=== PATIENT | male | born 1970 | race Caucasian/White ===

== ENCOUNTER 2017-09-19 20:02 | Emergency (ER) | payer OTHER ==
[2017-09-19] MEDS ORDERED: IPRATROPIUM-ALBUTEROL 3 ML NEB INHALATION STA (21:20)
[2017-09-19] MEDS ORDERED: predniSONE 20 MG TAB PO STA (21:20)
--- NOTE | 2017-09-19 21:25 | ED ---
General Adult HPI - General Chief complaint: Upper Respiratory Infection Stated complaint: URSULA Time Seen by Provider: 09/19/17 21:12 Source: patient Mode of arrival: ambulatory Limitations: no limitations - History of Present Illness Initial comments: This patient is a 46-year-old man who presents to be evaluated for a worsening of his COPD. He states that for about 2 days now he has noted worsening of dyspnea on exertion. He states that he also feels like he is wheezing more than usual, and he is coughing a little more than usual, though there is no sputum production. He states that this is typical of a flareup of his COPD. He states that he has been using albuterol at home which only seems to help a little bit. The patient is denying other symptoms, including no fever or chills , sputum production, dyspnea at rest, orthopnea, chest pain, palpitations or syncope, leg pain or swelling, change in urination or bowel movements. The patient states that the last time his breathing flareup like this he received ipratropium bromide which seemed to help. Onset/Timin -: days(s) Consistency: constant Improves with: medication Worsens with: movement Associated Symptoms: cough, shortness of breath - Related Data Home Medications Medication Instructions Recorded Confirmed Albuterol Nebulized [Ventolin 2.5 mg INHALATION RT-Q6H PRN 09/19/17 09/19/17 Nebulized] Budesonide/Formoterol Fumarate 2 puff INHALATION RT-BID 09/19/17 09/19/17 [Symbicort 160-4.5 Mcg Inhaler] Multivitamins, Thera [Multivitamin 1 tab PO DAILY 09/19/17 09/19/17 (formulary)] Prilosec (Unknown Dose) 1 tab PO DAILY 09/19/17 09/19/17 Zoloft (Unknown Dose) 1 tab PO HS 09/19/17 09/19/17 Previous Rx's Medication Instructions Recorded Albuterol Inhaler [Ventolin Hfa 1 - 2 puff INHALATION Q6HR PRN #1 09/19/17 Inhaler] inhaler Ipratropium [place] [Atrovent Hfa] 2 puff INHALATION QID #1 inhaler 09/19/17 predniSONE 60 mg PO DAILY #30 tab 09/19/17 Allergies Allergy/AdvReac Type Severity Reaction Status Date / Time No Known Allergies Allergy Verified 09/19/17 20:56 Review of Systems ROS Statement: Those systems with pertinent positive or pertinent negative responses have been documented in the HPI. ROS Other: All systems not noted in ROS Statement are negative. Constitutional: Denies: fever, chills, weakness ENT: Denies: throat pain Respiratory: Reports: cough, wheezes. Denies: dyspnea, hemoptysis, stridor Cardiovascular: Reports: dyspnea on exertion. Denies: chest pain, palpitations , orthopnea, edema, syncope Gastrointestinal: Denies: abdominal pain, vomiting, diarrhea, melena, hematochezia Genitourinary: Denies: dysuria Musculoskeletal: Denies: back pain Neurological: Denies: headache, weakness, numbness Past Medical History Past Medical History: COPD History of Any Multi-Drug Resistant Organisms: None Reported Past Surgical History: No Surgical Hx Reported Past Psychological History: Anxiety, Depression Smoking Status: Current every day smoker Past Alcohol Use History: Occasional Past Drug Use History: None Reported General Exam Limitations: no limitations General appearance: alert, in no apparent distress Head exam: Present: atraumatic, normocephalic, normal inspection Eye exam: Present: normal appearance ENT exam: Present: normal oropharynx Respiratory exam: Present: wheezes. Absent: respiratory distress, rales, rhonchi, stridor, chest wall tenderness, accessory muscle use, decreased breath sounds, prolonged expiratory Cardiovascular Exam: Present: regular rate, normal rhythm, normal heart sounds. Absent: systolic murmur, diastolic murmur, rubs, gallop GI/Abdominal exam: Present: soft. Absent: distended, tenderness, guarding, rebound, mass Extremities exam: Present: normal inspection, normal capillary refill. Absent: pedal edema, calf tenderness Neurological exam: Present: alert Skin exam: Present: warm, dry, intact, normal color. Absent: rash Course Vital Signs 09/19/17 09/19/17 09/19/17 20:19 21:09 21:51 Temperature 97.7 F Pulse Rate 98 82 Respiratory 18 20 Rate Blood Pressure 127/79 O2 Sat by Pulse 98 Oximetry 09/19/17 22:04 Temperature Pulse Rate 84 Respiratory Rate Blood Pressure O2 Sat by Pulse Oximetry Disposition Clinical Impression: Asthmatic bronchitis Disposition: HOME SELF-CARE Condition: Fair Instructions: Bronchospasm (ED) Prescriptions: Albuterol Inhaler [Ventolin Hfa Inhaler] 1 - 2 puff INHALATION Q6HR PRN #1 inhaler PRN Reason: Wheezing Ipratropium [place] [Atrovent Hfa] 2 puff INHALATION QID #1 inhaler predniSONE 60 mg PO DAILY #30 tab Referrals: Val Concepcion MD [Primary Care Provider] - 1-2 days
--- NOTE | 2017-09-19 22:45 | XR ---
EXAMINATION TYPE: XR chest 2V DATE OF EXAM: 09/19/2017 COMPARISON: NONE HISTORY: Cough and short of breath TECHNIQUE: Frontal and lateral views of the chest are obtained. FINDINGS: Heart and mediastinum are normal. Lungs are clear. Diaphragm is normal. Bony thorax appear s normal. IMPRESSION: Normal chest
[2017-09-19 23:20] VITALS: BP 135/83; PULSE 86; RESP 17; TEMP 98.7
== END 2017-09-19 23:20 | disposition home or self-care (01) ==
LOC: EC 20:02
DX: J44.9 Chronic obstructive pulmonary disease, unspecified (principal); F32.9 Major depressive disorder, single episode, unspecified; F41.9 Anxiety disorder, unspecified; F17.200 Nicotine dependence, unspecified, uncomplicated; Z79.51 Long term (current) use of inhaled steroids; Z79.899 Other long term (current) drug therapy
CPT/HCPCS: 94640; 71046; 99283; J7512

== ENCOUNTER 2017-11-19 07:33 | Emergency (ER) | payer OTHER ==
[2017-11-19 07:40] VITALS: RESP 17
--- NOTE | 2017-11-19 08:00 | ED ---
Upper Extremity HPI - General Chief Complaint: Extremity Injury, Upper Stated Complaint: IHS-Hand Swelling Time Seen by Provider: 11/19/17 07:49 Source: patient Mode of arrival: ambulatory Limitations: no limitations - History of Present Illness Initial Comments: Patient complains of pain and swelling of the right upper extremity. 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 He has pain in the right elbow, and also some pain and swelling in the right hand. He has no loss of function. He has no pain in the forearm. He denies any direct injuries. He has some scratches on the dorsum of the right hand. He has no numbness or tingling in the fingertips. 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 He has taken no medication for this. He states the pain is worse in the elbow when he extends his arm. He does not recall any direct trauma to the extremity. He denies any fever or chills. He has no lightheadedness. - Related Data Home Medications Medication Instructions Recorded Confirmed Albuterol Nebulized [Ventolin 2.5 mg INHALATION RT-Q6H PRN 09/19/17 09/19/17 Nebulized] Budesonide/Formoterol Fumarate 2 puff INHALATION RT-BID 09/19/17 09/19/17 [Symbicort 160-4.5 Mcg Inhaler] Multivitamins, Thera [Multivitamin 1 tab PO DAILY 09/19/17 09/19/17 (formulary)] Prilosec (Unknown Dose) 1 tab PO DAILY 09/19/17 09/19/17 Zoloft (Unknown Dose) 1 tab PO HS 09/19/17 09/19/17 Previous Rx's Medication Instructions Recorded Albuterol Inhaler [Ventolin Hfa 1 - 2 puff INHALATION Q6HR PRN #1 09/19/17 Inhaler] inhaler Ipratropium [place] [Atrovent Hfa] 2 puff INHALATION QID #1 inhaler 09/19/17 predniSONE 60 mg PO DAILY #30 tab 09/19/17 Aspirin 325 mg PO DAILY #30 tab 11/19/17 Cephalexin [Keflex] 500 mg PO Q12HR #40 cap 11/19/17 Sulfamethoxazole/Trimethoprim 2 each PO BID #40 tablet 11/19/17 [Bactrim DS 800-160 mg] Allergies Allergy/AdvReac Type Severity Reaction Status Date / Time No Known Allergies Allergy Verified 11/19/17 07:34 Review of Systems ROS Statement: Those systems with pertinent positive or pertinent negative responses have been documented in the HPI. ROS Other: All systems not noted in ROS Statement are negative. Past Medical History Past Medical History: COPD History of Any Multi-Drug Resistant Organisms: None Reported Past Surgical History: No Surgical Hx Reported Past Psychological History: Anxiety, Depression Smoking Status: Current every day smoker Past Alcohol Use History: Occasional Past Drug Use History: None Reported General Exam Limitations: no limitations General appearance: alert Head exam: Present: atraumatic, normocephalic, normal inspection Eye exam: Present: normal appearance, PERRL, EOMI. Absent: scleral icterus, conjunctival injection, periorbital swelling Neck exam: Present: normal inspection. Absent: tenderness, meningismus, lymphadenopathy Respiratory exam: Absent: respiratory distress Cardiovascular Exam: Present: other (Capillary refill less than 2 seconds) Extremities exam: Present: full ROM, normal capillary refill Back exam: Present: normal inspection Neurological exam: Present: alert, oriented X3, CN II-XII intact Psychiatric exam: Present: normal affect, normal mood Skin exam: Present: other (Abrasion on the back of the right hand with some slight erythema) Course Vital Signs 11/19/17 07:34 Temperature 97.5 F L Pulse Rate 83 Respiratory 17 Rate Blood Pressure 143/84 O2 Sat by Pulse 97 Oximetry Medical Decision Making - Medical Decision Making Patient's imaging is obtained, all interpreted by radiology showing no evidence of fracture, no evidence of DVT. Ultrasound was concerning for a superficial thrombophlebitis, so we'll start the patient on an aspirin. I will give him a dose of antibiotics as I'm concerned he has a mild cellulitis of the hand. There is no evidence of abscess. This involves less than 50% of his right upper extremity. There is no indication for IV antibiotics or admission at this time. I advised the patient to follow-up with his primary care doctor within 2 days. I instructed him to return to the emerge department immediately if symptoms worsen, or if he develops any other proms or complaints. He did verbalize understanding of these instructions. Disposition Clinical Impression: Cellulitis, Superficial thrombophlebitis of arm Disposition: HOME SELF-CARE Condition: Good Instructions: Cellulitis (ED), Superficial Thrombophlebitis (ED) Prescriptions: Aspirin 325 mg PO DAILY #30 tab Cephalexin [Keflex] 500 mg PO Q12HR #40 cap Sulfamethoxazole/Trimethoprim [Bactrim DS 800-160 mg] 2 each PO BID #40 tablet Is patient prescribed a controlled substance at discharge?: No Referrals: Val Concepcion MD [Primary Care Provider] - 1-2 days
--- NOTE | 2017-11-19 08:29 | XR ---
Right hand HISTORY: Trauma and pain 3 views of the right hand Arthropathy changes are noted especially at the first metacarpophalangeal joint with associated soft tissue swelling. Alignment is maintained. Bone mineralization is normal. There is soft tissue swellin g present. IMPRESSION: No fracture or dislocation.
--- NOTE | 2017-11-19 08:30 | XR ---
Right forearm HISTORY: Trauma and pain 2 views of the right forearm Correlation right elbow and hand same date Bone mineralization, joint spaces and alignment are maintained. IMPRESSION: No fracture or dislocation.
--- NOTE | 2017-11-19 08:31 | XR ---
Right elbow HISTORY: Trauma and pain 3 views of the right elbow Question joint effusion. Alignment, joint spaces and bone mineralization are maintained. IMPRESSION: No fracture or dislocation. Possible elbow joint effusion. Follow-up as indicated.
--- NOTE | 2017-11-19 10:07 | US ---
EXAMINATION TYPE: US venous doppler duplex UE RT DATE OF EXAM: 11/19/2017 COMPARISON: NONE CLINICAL HISTORY: 46-year-old male with right hand swelling today with ecchymosis to posterior hand a t thumb level; using jackhammer x 3 days; nine days prior had blood drawn/plasma donation via right a rm. SIDE PERFORMED: Right Findings: Right Arm: Negative for DVT. The subclavian, internal jugular, axillary, brachial, and paired radial and ulnar veins were sampled. The cephalic veins were also sampled. 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 Color flow patency is noted flowing around wall changes in Basilic Vein. Edema channels are noted right posterior hand at swelling. IMPRESSION: 1. No sonographic evidence for DVT within the right upper extremity. 2. However, findings suggest nonocclusive SVT involving the basilic vein as above. 3. Prominent subcutaneous soft tissue edema in the hand at the site of bruising and swelling.
[2017-11-19] MEDS ORDERED: CEPHALEXIN 500 MG CAP PO STA (10:31)
[2017-11-19] MEDS ORDERED: SULFAMETHOX-TMP 800-160MG 1 EACH TAB PO STA (10:31)
[2017-11-19 10:49] VITALS: BP 138/82; PULSE 82; TEMP 97.7
== END 2017-11-19 10:48 | disposition home or self-care (01) ==
LOC: EC 07:33
DX: L03.113 Cellulitis of right upper limb (principal); I80.8 Phlebitis and thrombophlebitis of other sites; J44.9 Chronic obstructive pulmonary disease, unspecified; F32.9 Major depressive disorder, single episode, unspecified; F41.9 Anxiety disorder, unspecified; F17.200 Nicotine dependence, unspecified, uncomplicated; Z79.899 Other long term (current) drug therapy; X58.XXXA Exposure to other specified factors, initial encounter; Y92.69 Other specified industrial and construction area as the place of occurrence of the external cause; Y99.0 Civilian activity done for income or pay
CPT/HCPCS: 99284

== ENCOUNTER 2017-12-08 12:26 | Observation (INO) | payer OTHER ==
[2017-12-08] MEDS ORDERED: diphenhydrAMINE 50 MG/ML 1 ML VIAL IVP STA (12:53)
[2017-12-08] MEDS ORDERED: methylPREDNISolone SOD SUCCI 125 MG/2 ML VIAL IV STA (12:53)
--- NOTE | 2017-12-08 12:59 | ED ---
General Adult HPI - General Chief complaint: Recheck/Abnormal Lab/Rx Stated complaint: bilat hand/foot swelling, back pain Time Seen by Provider: 12/08/17 12:38 Source: patient, RN notes reviewed Mode of arrival: wheelchair Limitations: no limitations - History of Present Illness Initial comments: 46-year-old male presents emergency Department with chief complaint of bilateral hand, foot swelling. Patient states his feet are much worse on his hands. Patient states that started Friday and has progressed. Patient states his feet are very painful and she. Patient states that there is blotchy red and purple discoloration. He states he has a history of COPD and has no other major issues. Patient states that he was seen in emergency department several weeks ago for cellulitis, superficial from phlebitis to his hand. Patient states he now has sores that are purplish on his hand there also salad painful. Denies any fever, chills. He has no history of immune disorders. Patient states she is not taking medications regular basis. Denies any new chemical or drug exposure. - Related Data Home Medications Medication Instructions Recorded Confirmed Albuterol Nebulized [Ventolin 2.5 mg INHALATION RT-Q6H PRN 09/19/17 12/08/17 Nebulized] Budesonide/Formoterol Fumarate 2 puff INHALATION RT-BID 09/19/17 12/08/17 [Symbicort 160-4.5 Mcg Inhaler] Multivitamins, Thera [Multivitamin 1 tab PO DAILY 09/19/17 12/08/17 (formulary)] Prilosec (Unknown Dose) 1 tab PO DAILY 09/19/17 12/08/17 Albuterol Inhaler [Ventolin Hfa 1 - 2 puff INHALATION RT-Q6H PRN 12/08/17 Inhaler] Ipratropium [place] [Atrovent Hfa] 2 puff INHALATION RT-QID 12/08/17 12/08/17 Omeprazole 20 mg PO DAILY 12/08/17 12/08/17 Previous Rx's Medication Instructions Recorded Aspirin 325 mg PO DAILY #30 tab 11/19/17 Cephalexin [Keflex] 500 mg PO Q12HR #40 cap 11/19/17 Allergies Allergy/AdvReac Type Severity Reaction Status Date / Time No Known Allergies Allergy Verified 12/08/17 13:21 Review of Systems ROS Statement: Those systems with pertinent positive or pertinent negative responses have been documented in the HPI. ROS Other: All systems not noted in ROS Statement are negative. Past Medical History Past Medical History: COPD History of Any Multi-Drug Resistant Organisms: None Reported Past Surgical History: No Surgical Hx Reported Past Psychological History: Anxiety, Depression Smoking Status: Current every day smoker Past Alcohol Use History: Occasional Past Drug Use History: Marijuana General Exam Limitations: no limitations General appearance: alert, in no apparent distress Head exam: Present: atraumatic, normocephalic, normal inspection ENT exam: Present: normal oropharynx Neck exam: Present: normal inspection, full ROM. Absent: tenderness, meningismus, lymphadenopathy Respiratory exam: Present: normal lung sounds bilaterally. Absent: respiratory distress, wheezes, rales, rhonchi, stridor Cardiovascular Exam: Present: regular rate, normal rhythm, normal heart sounds. Absent: systolic murmur, diastolic murmur, rubs, gallop, clicks GI/Abdominal exam: Present: soft, normal bowel sounds. Absent: distended, tenderness, guarding, rebound, rigid Extremities exam: Present: other (Bilateral foot swelling noted, there is moderate erythematous changes the area is irregular, pedal pulses equal bilaterally, there is noted hand swelling with erythematous to purpuric in nature) Skin exam: Present: warm, dry Course Vital Signs 12/08/17 12/08/17 12:27 14:29 Temperature 97.8 F Pulse Rate 84 81 Respiratory 18 20 Rate Blood Pressure 130/74 138/77 O2 Sat by Pulse 98 98 Oximetry Medical Decision Making - Medical Decision Making 46-year-old male presented for bilateral foot swelling. Patient has extensive rash, elevated sed rate and CRP. Concern for vasculitis autoimmune disease. Patient admitted for infectious disease, rheumatology. - Lab Data Result diagrams: 12/08/17 13:00 12/08/17 13:00 Lab Results 12/08/17 12/08/17 12/08/17 Range/Units 13:00 13:00 13:00 WBC 8.3 (3.8-10.6) k/uL RBC 4.24 L (4.30-5.90) m/uL Hgb 13.1 (13.0-17.5) gm/dL Hct 39.6 (39.0-53.0) % MCV 93.4 (80.0-100.0) fL MCH 31.0 (25.0-35.0) pg MCHC 33.2 (31.0-37.0) g/dL RDW 12.9 (11.5-15.5) % Plt Count 184 (150-450) k/uL Neutrophils % 75 % Lymphocytes % 15 % Monocytes % 5 % Eosinophils % 3 % Basophils % 0 % Neutrophils # 6.3 (1.3-7.7) k/uL Lymphocytes # 1.3 (1.0-4.8) k/uL Monocytes # 0.4 (0-1.0) k/uL Eosinophils # 0.2 (0-0.7) k/uL Basophils # 0.0 (0-0.2) k/uL ESR 28 H (0-15) mm/hr PT (9.0-12.0) sec INR (<1.2) APTT (22.0-30.0) sec Sodium 143 (137-145) mmol/L Potassium 4.4 (3.5-5.1) mmol/L Chloride 108 H (98-107) mmol/L Carbon Dioxide 26 (22-30) mmol/L Anion Gap 9 mmol/L BUN 7 L (9-20) mg/dL Creatinine 0.70 (0.66-1.25) mg/dL Est GFR (CKD-EPI)AfAm >90 (>60 ml/min/1.73 sqM) Est GFR (CKD-EPI)NonAf >90 (>60 ml/min/1.73 sqM) Glucose 126 H (74-99) mg/dL Calcium 8.0 L (8.4-10.2) mg/dL Total Bilirubin 0.3 (0.2-1.3) mg/dL AST 39 (17-59) U/L ALT 38 (21-72) U/L Alkaline Phosphatase 60 (38-126) U/L C-Reactive Protein 188.4 H (<10.0) mg/L NT-Pro-B Natriuret Pep 173 pg/mL Total Protein 5.1 L (6.3-8.2) g/dL Albumin 3.0 L (3.5-5.0) g/dL 12/08/17 Range/Units 13:00 WBC (3.8-10.6) k/uL RBC (4.30-5.90) m/uL Hgb (13.0-17.5) gm/dL Hct (39.0-53.0) % MCV (80.0-100.0) fL MCH (25.0-35.0) pg MCHC (31.0-37.0) g/dL RDW (11.5-15.5) % Plt Count (150-450) k/uL Neutrophils % % Lymphocytes % % Monocytes % % Eosinophils % % Basophils % % Neutrophils # (1.3-7.7) k/uL Lymphocytes # (1.0-4.8) k/uL Monocytes # (0-1.0) k/uL Eosinophils # (0-0.7) k/uL Basophils # (0-0.2) k/uL ESR (0-15) mm/hr PT 9.5 (9.0-12.0) sec INR 0.9 (<1.2) APTT 24.6 (22.0-30.0) sec Sodium (137-145) mmol/L Potassium (3.5-5.1) mmol/L Chloride (98-107) mmol/L Carbon Dioxide (22-30) mmol/L Anion Gap mmol/L BUN (9-20) mg/dL Creatinine (0.66-1.25) mg/dL Est GFR (CKD-EPI)AfAm (>60 ml/min/1.73 sqM) Est GFR (CKD-EPI)NonAf (>60 ml/min/1.73 sqM) Glucose (74-99) mg/dL Calcium (8.4-10.2) mg/dL Total Bilirubin (0.2-1.3) mg/dL AST (17-59) U/L ALT (21-72) U/L Alkaline Phosphatase (38-126) U/L C-Reactive Protein (<10.0) mg/L NT-Pro-B Natriuret Pep pg/mL Total Protein (6.3-8.2) g/dL Albumin (3.5-5.0) g/dL Disposition Clinical Impression: Vasculitis, Edema of both feet, Rash, Back pain Disposition: ADMITTED IP TO THIS [facility] Condition: Stable Referrals: Val Concepcion MD [Primary Care Provider] - 1-2 days Time of Disposition: 15:17
[2017-12-08 13:18] LABS: Basophils % (A) 0 %; Eosinophils # (A) 0.2 k/uL (0-0.7); Eosinophils % (A) 3 %; HCT 39.6 % (39.0-53.0); HGB 13.1 gm/dL (13.0-17.5); Lymphocytes # (A) 1.3 k/uL (1.0-4.8); Lymphocytes % (A) 15 %; MCHC 33.2 g/dL (31.0-37.0); MCV 93.4 fL (80.0-100.0); Mean Platelet Volume 7.9; Monocytes # (A) 0.4 k/uL (0-1.0); Monocytes % (A) 5 %; Neutrophils # (A) 6.3 k/uL (1.3-7.7); Neutrophils % (A) 75 %; Platelet Count 184 k/uL (150-450); RBC 4.24 m/uL (4.30-5.90); RDW 12.9 % (11.5-15.5); WBC 8.3 k/uL (3.8-10.6)
[2017-12-08 13:33] LABS: INR 0.9 (<1.2); Partial Thromboplastin Time 24.6 sec (22.0-30.0); Prothrombin Time 9.5 sec (9.0-12.0)
[2017-12-08 13:41] LABS: ALT 38 U/L (21-72); AST 39 U/L (17-59); Alkaline Phosphatase 60 U/L (38-126); Anion Gap 9 mmol/L; Blood Urea Nitrogen 7 mg/dL (9-20); Carbon Dioxide 26 mmol/L (22-30); Chloride 108 mmol/L (98-107); Glucose 126 mg/dL (74-99); Potassium 4.4 mmol/L (3.5-5.1); Sodium 143 mmol/L (137-145); Total Bilirubin 0.3 mg/dL (0.2-1.3); Total Protein 5.1 g/dL (6.3-8.2)
[2017-12-08] MEDS ORDERED: ORPHENADRINE 30 MG/ML 2 ML VIAL IVP STA (14:01)
[2017-12-08 14:12] LABS: C Reactive Protein 188.4 mg/L (<10.0)
[2017-12-08 14:14] LABS: Erythrocyte Sedimentation Rate 28 mm/hr (0-15)
[2017-12-08] MEDS ORDERED: NALOXONE 0.4 MG/ML 1 ML VIAL IV PRN (15:18)
[2017-12-08] MEDS ORDERED: HYDROcodone/APAP 5-325MG 1 EACH TAB PO PRN (15:18)
[2017-12-08] MEDS ORDERED: ONDANSETRON 4 MG/2 ML VIAL IVP PRN (15:18)
[2017-12-08] MEDS ORDERED: ACETAMINOPHEN TAB 325 MG TAB PO PRN (15:18)
[2017-12-08] MEDS ORDERED: IPRATROPIUM-ALBUTEROL 3 ML NEB INHALATION PRN (17:25)
--- NOTE | 2017-12-08 17:44 | P.CONS ---
History of Present Illness - Reason for Consult Consult date: 12/08/17 swelling in hands and feet; possible vasculitis Requesting physician: Pam Patel - Chief Complaint swelling in hansd and feet - History of Present Illness Patient is seen today as a consult. Patient is a 46-year-old male who presents to the emergency room today with swelling of the hands and feet since Friday. Patient states that the swelling started on Friday but he noticed color changes of dark red and dark purple on his right fifth finger and right first finger yesterday. Patient also states that he had swelling in his feet that were very pruritic and that also started on Friday as well. In the emergency room labs revealed normal CBC with white blood cell count 8.3, hemoglobin 13.1, platelets 184, creatinine 0.7, ESR 28, CRP 188.4. In the emergency room patient was given 125 mg IV Solu-Medrol and Benadryl as well which patient states has helped his swelling. Patient states that couple weeks ago on November 19 he was seen in the emergency room for cellulitis between his right first and right second finger which was prescribed oral Keflex as well as oral Bactrim and was also told that he has superficial phlebitis of the right upper arm and was prescribed oral aspirin 325 mg daily. Patient is unsure if he was treated with steroids at that time. Patient's previous medical history includes COPD for which he sees his primary care Dr. Concepcion. 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 Patient admits to interventionist stiffness in the hands for about a half hour and does have back pain and he feels he sprained his back on Friday at work. Patient denies any history of psoriasis. Patient admits to hands changing color in the cold which may be consistent with Raynaud's. Review of Systems Respiratory: Reports cough Musculoskeletal: Reports low back pain, Reports morning stiffness, Reports redness of joints Musculoskeletal: bilateral: foot swelling, hand swelling Integumentary: Reports pruritus, Reports rash Past Medical History Past Medical History: COPD, GERD/Reflux History of Any Multi-Drug Resistant Organisms: None Reported Past Surgical History: Adenoidectomy, Heart Catheterization, Tonsillectomy Additional Past Surgical History / Comment(s): 2014 heart cath r/t sob Past Anesthesia/Blood Transfusion Reactions: No Reported Reaction Past Psychological History: Anxiety, Depression Smoking Status: Current every day smoker Past Alcohol Use History: Occasional Past Drug Use History: Marijuana - Past Family History Father History Unknown: Yes Medications and Allergies Home Medications Medication Instructions Recorded Confirmed Type Albuterol Nebulized [Ventolin 2.5 mg INHALATION RT-Q6H PRN 09/19/17 12/08/17 History Nebulized] Budesonide/Formoterol Fumarate 2 puff INHALATION RT-BID 09/19/17 12/08/17 History [Symbicort 160-4.5 Mcg Inhaler] Multivitamins, Thera [Multivitamin 1 tab PO DAILY 09/19/17 12/08/17 History (formulary)] Prilosec (Unknown Dose) 1 tab PO DAILY 09/19/17 12/08/17 History Aspirin 325 mg PO DAILY #30 tab 11/19/17 12/08/17 Rx Cephalexin [Keflex] 500 mg PO Q12HR #40 cap 11/19/17 12/08/17 Rx Albuterol Inhaler [Ventolin Hfa 1 - 2 puff INHALATION RT-Q6H PRN 12/08/17 History Inhaler] Ipratropium [place] [Atrovent Hfa] 2 puff INHALATION RT-QID 12/08/17 12/08/17 History Omeprazole 20 mg PO DAILY 12/08/17 12/08/17 History Allergies Allergy/AdvReac Type Severity Reaction Status Date / Time No Known Allergies Allergy Verified 12/08/17 13:21 Physical Exam Vitals: Vital Signs Temp Pulse Resp BP Pulse Ox 12/08/17 15:52 97.2 F L 76 16 122/63 96 12/08/17 15:00 78 20 147/56 96 12/08/17 14:29 81 20 138/77 98 12/08/17 12:27 97.8 F 84 18 130/74 98 Intake and Output 12/08/17 12/08/17 12/08/17 06:59 14:59 22:59 Other: Weight 106.594 kg On physical exam patient does have swelling of the joints of the hand associated with erythema and patient does seem to have violaceous discoloration of the 1st MTP and right fifth digit has erythematous/violaceous patches on the medial aspect. Patient's feet bilaterally are erythematous with swelling however non-pitting edema and patient's bilateral fourth and fifth digits bilaterally with erythema of bilateral 1st MTPs. Patient has onycholysis of toenails bilaterally. Patient has bilateral wheezes. Results CBC & Chem 7: 12/08/17 13:00 12/08/17 13:00 Labs: Abnormal Lab Results - Last 24 Hours (Table) 12/08/17 12/08/17 Range/Units 13:00 13:00 RBC 4.24 L (4.30-5.90) m/uL ESR 28 H (0-15) mm/hr Chloride 108 H (98-107) mmol/L BUN 7 L (9-20) mg/dL Glucose 126 H (74-99) mg/dL Calcium 8.0 L (8.4-10.2) mg/dL C-Reactive Protein 188.4 H (<10.0) mg/L Total Protein 5.1 L (6.3-8.2) g/dL Albumin 3.0 L (3.5-5.0) g/dL Assessment and Plan Assessment: Today in order to evaluate patient's symptoms I will order a complete panel in order to evaluate for vasculitis which includes rheumatoid factor, p-ANCA, and c -ANCA. Given patient's elevated CRP and symptoms of swelling and discoloration, as well as history of phlebitis, there is some concern for vasculitis. Patient is already receiving Solu-medrol and aspirin so will continue that as well. (1) Raynaud phenomenon Current Visit: Yes Status: Chronic Code(s): I73.00 - RAYNAUD'S SYNDROME WITHOUT GANGRENE SNOMED Code(s): 029777312 (2) COPD (chronic obstructive pulmonary disease) Current Visit: Yes Status: Chronic Code(s): J44.9 - CHRONIC OBSTRUCTIVE PULMONARY DISEASE, UNSPECIFIED SNOMED Code(s): 77760164 (3) Nicotine dependence Current Visit: Yes Status: Chronic Code(s): F17.200 - NICOTINE DEPENDENCE, UNSPECIFIED, UNCOMPLICATED SNOMED Code(s): 74946295 (4) Edema of both feet Current Visit: Yes Status: Acute Code(s): R60.0 - LOCALIZED EDEMA SNOMED Code(s): 865502604 (5) Rash Current Visit: Yes Status: Acute Code(s): R21 - RASH AND OTHER NONSPECIFIC SKIN ERUPTION SNOMED Code(s): 139349811 (6) Superficial thrombophlebitis of arm Current Visit: No Status: Chronic Code(s): I80.8 - PHLEBITIS AND THROMBOPHLEBITIS OF OTHER SITES SNOMED Code(s): 24542524 Time with Patient: Greater than 30
[2017-12-08 20:08] LABS: ALT 38 U/L (21-72); AST 37 U/L (17-59); Alkaline Phosphatase 64 U/L (38-126); Anion Gap 11 mmol/L; Blood Urea Nitrogen 8 mg/dL (9-20); Calcium 8.6 mg/dL (8.4-10.2); Carbon Dioxide 24 mmol/L (22-30); Chloride 107 mmol/L (98-107); Glucose 201 mg/dL (74-99); Potassium 4.5 mmol/L (3.5-5.1); Sodium 142 mmol/L (137-145); Total Bilirubin 0.1 mg/dL (0.2-1.3); Total Protein 5.2 g/dL (6.3-8.2); Uric Acid 3.3 mg/dL (3.5-8.5)
[2017-12-08 20:25] LABS: C Reactive Protein 167.5 mg/L (<10.0)
[2017-12-08] MEDS: methylPREDNISolone SOD SUCCI 125 MG/2 ML VIAL IV SCH (20:31)
[2017-12-08 20:33] LABS: Appearance,Urine Clear (Clear); Bilirubin,Urine Negative (Negative); Blood,Urine Negative (Negative); Color,Urine Yellow; Glucose,Urine (UA) 4+ (Negative); Ketones,Urine Trace (Negative); Leukocyte Esterase,Urine Negative (Negative); Nitrite,Urine Negative (Negative); Protein,Urine Negative (Negative); Specific Gravity,Urine 1.013 (1.001-1.035); Urobilinogen,Urine <2.0 mg/dL (<2.0)
[2017-12-08] MEDS: SYMBICORT 160-4.5 MCG INHALER INHALATION SCH (21:34)
[2017-12-08] MEDS ORDERED: CALCIUM CARBONATE 500 MG CHEWABLE PO PRN (23:19)
[2017-12-08] MEDS ORDERED: FAMOTIDINE 20 MG TAB PO SCH (23:30)
--- NOTE | 2017-12-09 00:40 | P.HPIM ---
History of Present Illness H&P Date: 12/08/17 Chief Complaint: Swelling of the hand and feet and skin rash Patient is a 46-year-old male with a known history of COPD and GERD came to the hospital with complaints of bilateral hand and foot swelling. His symptoms started 2 days back and has been progressing. Patient also noticed today underwent purplish and blotchy/blebs with discoloration on the right thumb and also petechial rash on the foot bilaterally. Patient came to the hospital for further evaluation. Patient says that he was treated for right hand cellulitis few Weeks ago. He was given antibiotics in the form of Keflex and Bactrim for about 10 days which he completed about 5 days ago. Denied any fever or chills. Denied any chest pain or shortness of breath. No previous history of a autoimmune disease. Denied any chemical or cold exposure. Patient was found to have elevated ESR and CRP. Patient was started on Solu-Medrol 60 mg every 6 hourly and was also a dose of Benadryl was given in the ER. For itching. Rheumatology and ID was consulted consulted. Review of Systems Constitutional: Patient denies any fever or chills . No generalized weakness or weight loss. Abdomen: Patient denied nausea vomiting and diarrhea and abdominal pain. Cardiovascular: Patient denies any chest pain or short of breath no palpitations. Respiratory: patient denied any cough is from production. No shortness of breath Neurologic: Patient denied any numbness or tingling headache. Musculoskeletal: Patient denies any complaints of joint swelling or deformity. Skin: Skin changes as noted above Psychiatric: Negative Endocrine: No heat or cold intolerance. No recent weight gain. Genitourinary: No dysuria or hematuria. All other 14 point ROS negative except the above Past Medical History Past Medical History: COPD, GERD/Reflux History of Any Multi-Drug Resistant Organisms: None Reported Past Surgical History: Adenoidectomy, Heart Catheterization, Tonsillectomy Additional Past Surgical History / Comment(s): 2014 heart cath r/t sob Past Anesthesia/Blood Transfusion Reactions: No Reported Reaction Past Psychological History: Anxiety, Depression Smoking Status: Current every day smoker Past Alcohol Use History: Occasional Past Drug Use History: Marijuana - Past Family History Father History Unknown: Yes Medications and Allergies Home Medications Medication Instructions Recorded Confirmed Type Albuterol Nebulized [Ventolin 2.5 mg INHALATION RT-Q6H PRN 09/19/17 12/08/17 History Nebulized] Budesonide/Formoterol Fumarate 2 puff INHALATION RT-BID 09/19/17 12/08/17 History [Symbicort 160-4.5 Mcg Inhaler] Multivitamins, Thera [Multivitamin 1 tab PO DAILY 09/19/17 12/08/17 History (formulary)] Prilosec (Unknown Dose) 1 tab PO DAILY 09/19/17 12/08/17 History Aspirin 325 mg PO DAILY #30 tab 11/19/17 12/08/17 Rx Cephalexin [Keflex] 500 mg PO Q12HR #40 cap 11/19/17 12/08/17 Rx Albuterol Inhaler [Ventolin Hfa 1 - 2 puff INHALATION RT-Q6H PRN 12/08/17 History Inhaler] Ipratropium [place] [Atrovent Hfa] 2 puff INHALATION RT-QID 12/08/17 12/08/17 History Omeprazole 20 mg PO DAILY 12/08/17 12/08/17 History Allergies Allergy/AdvReac Type Severity Reaction Status Date / Time No Known Allergies Allergy Verified 12/08/17 13:21 Physical Exam Vitals: Vital Signs Temp Pulse Resp BP Pulse Ox 12/08/17 15:52 97.2 F L 76 16 122/63 96 12/08/17 15:00 78 20 147/56 96 12/08/17 14:29 81 20 138/77 98 12/08/17 12:27 97.8 F 84 18 130/74 98 Intake and Output 12/08/17 12/08/17 12/08/17 06:59 14:59 22:59 Other: Weight 106.594 kg PHYSICAL EXAMINATION: Patient is lying in the bed comfortably, no acute distress, awake alert and oriented.. HEENT: Normocephalic. Neck is supple. Pupils reactive. Nostrils clear. Oral cavity is moist. Ears reveal no drainage. Neck reveals no JVD, carotid bruits, or thyromegaly. CHEST EXAMINATION: Trachea is central. Symmetrical expansion. Lung best clear to auscultation and percussion. CARDIAC: Normal S1, S2 with no gallops. No murmurs ABDOMEN: Soft. Bowel sounds normal. No organomegaly. No abdominal bruits. Extremities: 1+ edema of hands and feet. No clubbing or cyanosis Neurologically awake, alert, oriented x3 with well-coordinated movements. No focal deficits noted Skin: There is a 4 x 2 cm bleb with reddish discoloration. Petechial rash over bilateral feet. Psychiatric: [id number]. Nonsuicidal Musculoskeletal: No joint swelling or deformity. Normal range of motion. Results CBC & Chem 7: 12/08/17 13:00 12/08/17 18:30 Labs: Abnormal Lab Results - Last 24 Hours (Table) 12/08/17 12/08/17 Range/Units 13:00 13:00 RBC 4.24 L (4.30-5.90) m/uL ESR 28 H (0-15) mm/hr Chloride 108 H (98-107) mmol/L BUN 7 L (9-20) mg/dL Glucose 126 H (74-99) mg/dL Calcium 8.0 L (8.4-10.2) mg/dL C-Reactive Protein 188.4 H (<10.0) mg/L Total Protein 5.1 L (6.3-8.2) g/dL Albumin 3.0 L (3.5-5.0) g/dL Thrombosis Risk Factor Assmnt - Choose All That Apply Each Factor Represents 1 point: Abnormal pulmonary function (COPD), Age 41-60 years, Swollen legs (current) Other Risk Factors: No Other congenital or acquired thrombophilia - If yes, enter type in comment: No Thrombosis Risk Factor Assessment Total Risk Factor Score: 3 Thrombosis Risk Factor Assessment Level: Moderate Risk Assessment and Plan Assessment: Bilateral upper and lower extremity swelling/rash with bleb-like purplish lesions. Suspected vasculitis versus drug reaction Elevated ESR and CRP COPD stable Nicotine addiction Recent right hand cellulitis treated with Bactrim and Keflex for 10 days, patient course 5 days back GERD Anxiety and depression Plan: Patient be continued on Solu-Medrol IV 60 every 6 hourly and autoimmune workup will be ordered. Rheumatology consult and ID consult. Continue the home medications and breathing treatments and follow closely. Further recommendations based on the clinical course. Time with Patient: Greater than 30
[2017-12-09 01:09] LABS: RNP <0.2 AI
[2017-12-09 01:10] LABS: Anti-DNA, DS unit <1.0 IU/mL; Centromere Antibody Interp NEGATIVE (NEGATIVE); Cyclic Citrullinated Pep IgG NEGATIVE (NEGATIVE); DNA Double-Stranded NEGATIVE (NEGATIVE); Scleroderma SC-70 Ab <0.2 AI
[2017-12-09 02:20] LABS: Protein, Total 5.5 g/dL (6.2-8.2); Rheumatoid Factor 11 IU/mL (0-15)
[2017-12-09 03:08] LABS: Hepatitis C IgG Antibody Non-Reactive (Non-Reactive)
[2017-12-09] MEDS: methylPREDNISolone SOD SUCCI 125 MG/2 ML VIAL IV SCH ×2 (05:54→12:43)
[2017-12-09] MEDS ORDERED: PANTOPRAZOLE 40 MG TABLET PO SCH (07:30)
[2017-12-09] MEDS: ASPIRIN 325 MG TAB PO SCH ×2 (08:01→08:02)
[2017-12-09] MEDS: SYMBICORT 160-4.5 MCG INHALER INHALATION SCH (08:22)
[2017-12-09 08:25] LABS: Basophils % (A) 0 %; Eosinophils % (A) 0 %; HCT 39.8 % (39.0-53.0); HGB 13.1 gm/dL (13.0-17.5); Lymphocytes # (A) 0.7 k/uL (1.0-4.8); Lymphocytes % (A) 5 %; MCH 31.4 pg (25.0-35.0); MCV 95.2 fL (80.0-100.0); Monocytes # (A) 0.3 k/uL (0-1.0); Monocytes % (A) 2 %; Neutrophils # (A) 14.4 k/uL (1.3-7.7); Neutrophils % (A) 93 %; Platelet Count 242 k/uL (150-450); RBC 4.18 m/uL (4.30-5.90); RDW 12.8 % (11.5-15.5); WBC 15.4 k/uL (3.8-10.6)
[2017-12-09 08:36] LABS: Anion Gap 10 mmol/L; Blood Urea Nitrogen 9 mg/dL (9-20); Carbon Dioxide 26 mmol/L (22-30); Chloride 108 mmol/L (98-107); Glucose 130 mg/dL (74-99); Potassium 4.3 mmol/L (3.5-5.1); Sodium 144 mmol/L (137-145)
[2017-12-09] MEDS ORDERED: PRILOSEC PO SCH (09:00)
[2017-12-09] MEDS ORDERED: MULTIVITAMINS, THERA 1 EACH TAB PO SCH (12:00)
[2017-12-09 14:20] VITALS: BP 122/71; PULSE 77; RESP 16; TEMP 98.3
[2017-12-09 16:08] LABS: Albumin 3.05 g/dL (3.80-4.90); Gamma Globulin 0.54 g/dL (0.70-1.50)
--- NOTE | 2017-12-09 18:21 | DS ---
DISCHARGE SUMMARY FINAL DIAGNOSES: 1. Bilateral leg lesions and upper extremity lesions, possible vasculitis. 2. Rule out cocaine induced lesions. 3. Rule out thromboangiitis lesions. 4. Elevated ESR and CRP. 5. Chronic obstructive pulmonary disease. 6. History of nicotine dependence. 7. Gastroesophageal reflux disease. 8. Anxiety and depression. DISCHARGE CONDITION: The patient will be discharged in stable condition with guarded prognosis. HISTORY OF PRESENT ILLNESS: This is a 46-year-old gentleman with a past medical history of multiple medical problems, was admitted with bilateral foot as well as arm lesions. The patient had multiple autoimmune workup per Dr. Mayfield. The patient improved significantly. Patient is keen on going home at this time. The patient will be discharged in stable condition with guarded prognosis. On exam, vital signs are stable. Cardiovascular S1 and S2. Abdomen soft, nontender. Minimal rash present. DISCHARGE INSTRUCTIONS: 1. Diet is cardiac. 2. Activity limited. FOLLOWUP: 1. Follow up with Dr. Val Concepcion in 2 to 3 days. 2. Follow with Dr. Mayfield as recommended. MEDICATIONS: 1. Tylenol 650 every 6 hours p.r.n. 2. Ventolin HFA 1 to 2 puffs every 6 hours p.r.n. 3. Albuterol nebulized 2.5 q.i.d. p.r.n. 4. Aspirin 325 mg p.o. daily. 5. Symbicort 2 puffs b.i.d. 6. Atrovent updraft 2 puffs p.r.n. 7. Ativan 1 mg t.i.d. p.r.n. 8. Multivitamins daily. 9. Habitrol 14 mg daily. No smoking. 10.Omeprazole 20 mg daily. FOLLOWUP: Followup labs with primary physician. MMODL / IJN: [id number] /
[2017-12-10 04:40] LABS: Angiotensin-1 Converting Enz. 40 U/L (8-52)
[2017-12-10 11:25] LABS: HLA B27 POSITIVE
[2017-12-10 11:58] LABS: APTT 51 Sec(s) (<43); APTT 1:1 Mix 50 Sec(s) (<43); DRVVT 1:1 Mix 42 Sec(s) (<44); Dilute Russell Viper Venom 46 Sec(s) (<44); Hexagonal Phase Neutralization Positive (Negative)
[2017-12-11 05:51] LABS: Aldolase 8.2 U/L (1.2-7.6)
[2017-12-15 07:19] LABS: C-ANCA <1:20 Titer (<1:20); P-ANCA <1:20 Titer (<1:20)
== END 2017-12-09 14:39 | disposition home or self-care (01) ==
LOC: EC 12:26 → 4MS4W 15:23
PROVIDERS: ADMIT Hospitalist; ATTEND Hospitalist
DX: L98.9 Disorder of the skin and subcutaneous tissue, unspecified (principal); R79.82 Elevated C-reactive protein (CRP); R70.0 Elevated erythrocyte sedimentation rate; J44.9 Chronic obstructive pulmonary disease, unspecified; F17.210 Nicotine dependence, cigarettes, uncomplicated; K21.9 Gastro-esophageal reflux disease without esophagitis; M79.89 Other specified soft tissue disorders; F41.9 Anxiety disorder, unspecified; F32.9 Major depressive disorder, single episode, unspecified; M54.5 Low back pain; Z79.51 Long term (current) use of inhaled steroids; Z79.899 Other long term (current) drug therapy; Z79.82 Long term (current) use of aspirin; Z87.2 Personal history of diseases of the skin and subcutaneous tissue
CPT/HCPCS: 99284 ×2; 96374 ×2; 96375 ×3; 96376 ×2; 36415; 94640; 86255; 86160 ×2; 86803; 86235 ×4; 86162; 86812; 83880; 80053; 80048; 85652; 82085; 82164; 84550; 85025 ×2; 85610; 85730; 86140; 87340; 86431; 85613; 81003; 85732; 85598; 84165; 86038 ×2; 86225; 86334; 86200; G0378 ×2; J1200; J2360; J2930 ×2

== ENCOUNTER 2018-05-27 09:42 | Inpatient (IN) | payer MEDICAID, OTHER ==
[2018-05-27] MEDS ORDERED: IPRATROPIUM-ALBUTEROL 3 ML NEB INHALATION STA (10:20)
--- NOTE | 2018-05-27 10:26 | ED ---
Psych HPI - General Chief Complaint: Psychiatric Symptoms Stated Complaint: SUICIDAL,SOB, COPD Time Seen by Provider: 05/27/18 10:07 Source: patient, RN notes reviewed Mode of arrival: ambulatory Limitations: no limitations - History of Present Illness Initial Comments: This a 47-year-old male presents emergency department for multiple complaints. Patient states is depressed, suicidal. Patient states that he has had multiple issues with psychiatric disorder. Patient has a history of drug abuse. Patient states he uses cocaine and marijuana heroin. Patient states that he has had thoughts of overdosing or possibly shooting himself. Patient states that he also has COPD and has not been uses medications for complaint of cough congestion shortness of breath. Denies any chest pain no headache no dizziness no fevers or chills. - Related Data Home Medications Medication Instructions Recorded Confirmed Budesonide/Formoterol Fumarate 2 puff INHALATION RT-BID 09/19/17 05/27/18 [Symbicort 160-4.5 Mcg Inhaler] Omeprazole 20 mg PO DAILY 12/08/17 05/27/18 Tiotropium 18 Mcg/Puff [Spiriva] 1 puff INHALATION DAILY 05/27/18 05/27/18 Allergies Allergy/AdvReac Type Severity Reaction Status Date / Time No Known Allergies Allergy Verified 05/27/18 17:40 Review of Systems ROS Statement: Those systems with pertinent positive or pertinent negative responses have been documented in the HPI. ROS Other: All systems not noted in ROS Statement are negative. Past Medical History Past Medical History: COPD, GERD/Reflux History of Any Multi-Drug Resistant Organisms: None Reported Past Surgical History: Adenoidectomy, Heart Catheterization, Tonsillectomy Additional Past Surgical History / Comment(s): 2014 heart cath r/t sob Past Anesthesia/Blood Transfusion Reactions: No Reported Reaction Past Psychological History: Anxiety, Depression Smoking Status: Current every day smoker Past Alcohol Use History: Occasional Past Drug Use History: Marijuana - Past Family History Father History Unknown: Yes General Exam Limitations: no limitations General appearance: alert, in no apparent distress Head exam: Present: atraumatic, normocephalic, normal inspection Eye exam: Present: normal appearance, PERRL, EOMI. Absent: scleral icterus, conjunctival injection, periorbital swelling ENT exam: Present: normal exam, normal oropharynx, mucous membranes moist Neck exam: Present: normal inspection. Absent: tenderness, meningismus, lymphadenopathy Respiratory exam: Present: wheezes. Absent: normal lung sounds bilaterally, respiratory distress, rales, rhonchi, stridor Cardiovascular Exam: Present: regular rate, normal rhythm, normal heart sounds. Absent: systolic murmur, diastolic murmur, rubs, gallop, clicks GI/Abdominal exam: Present: soft, normal bowel sounds. Absent: distended, tenderness, guarding, rebound, rigid Neurological exam: Present: alert, oriented X3, CN II-XII intact Psychiatric exam: Present: depressed Skin exam: Present: warm, dry, intact, normal color. Absent: rash Course Vital Signs 05/27/18 05/27/18 05/27/18 09:55 10:54 11:06 Temperature 97.5 F L Pulse Rate 122 H 96 92 Respiratory 24 16 16 Rate Blood Pressure 102/58 O2 Sat by Pulse 100 Oximetry 05/27/18 16:55 Temperature 98.0 F Pulse Rate 89 Respiratory 20 Rate Blood Pressure 110/70 O2 Sat by Pulse 98 Oximetry Medical Decision Making - Lab Data Lab Results 05/27/18 Range/Units 14:00 Urine Opiates Screen Not Detected (NotDetected) Ur Oxycodone Screen Not Detected (NotDetected) Urine Methadone Screen Not Detected (NotDetected) Ur Propoxyphene Screen Not Detected (NotDetected) Ur Barbiturates Screen Not Detected (NotDetected) U Tricyclic Antidepress Not Detected (NotDetected) Ur Phencyclidine Scrn Not Detected (NotDetected) Ur Amphetamines Screen Not Detected (NotDetected) U Methamphetamines Scrn Not Detected (NotDetected) U Benzodiazepines Scrn Not Detected (NotDetected) Urine Cocaine Screen Detected H (NotDetected) U Marijuana (THC) Screen Detected H (NotDetected) Disposition Clinical Impression: COPD (chronic obstructive pulmonary disease), Depression, Suicidal ideation Disposition: TRANSFER TO PSYCH HOSP/UNIT
--- NOTE | 2018-05-27 10:45 | XR ---
EXAMINATION TYPE: XR chest 2V DATE OF EXAM: 05/27/2018 COMPARISON: NONE TECHNIQUE: PA and lateral views submitted. HISTORY: Shortness of breath FINDINGS: The lungs are clear and there is no pneumothorax, pleural effusion, or focal pneumonia. Hyperinflat ion suggests COPD. No overt failure. Hypertrophic change of the spine. IMPRESSION: 1. No acute process.
[2018-05-27 14:59] LABS: Amphetamine Screen,Urine Not Detected (NotDetected); Barbiturate Screen,Urine Not Detected (NotDetected); Benzodiazepines Screen,Urine Not Detected (NotDetected); Cocaine Screen,Urine Detected (NotDetected); Methadone Screen, Urine Not Detected (NotDetected); Opiate Screen,Urine Not Detected (NotDetected); Oxycodone Screen, Urine Not Detected (NotDetected); Phencyclidine Screen,Urine Not Detected (NotDetected); Tricyclic Antidepressant,Urine Not Detected (NotDetected); Urn Cannabinoid Scrn Detected (NotDetected)
[2018-05-27] MEDS ORDERED: ZIPRASIDONE 20 MG VIAL IM PRN (18:49)
[2018-05-27] MEDS ORDERED: ACETAMINOPHEN TAB 325 MG TAB PO PRN (18:49)
[2018-05-27] MEDS ORDERED: LORazepam 1 MG TAB PO PRN (18:49)
[2018-05-27] MEDS ORDERED: MAG HYDROX/AL HYDROX/SIMETH 30 ML CUP PO PRN (18:49)
[2018-05-27] MEDS ORDERED: MAGNESIUM HYDROXIDE 2,400 MG/10 ML CUP PO PRN (18:49)
[2018-05-27] MEDS: SYMBICORT 160-4.5 MCG INHALER INHALATION SCH (21:39)
[2018-05-28] MEDS: PANTOPRAZOLE 40 MG TABLET PO SCH (08:30)
[2018-05-28] MEDS: NICOTINE 14MG/24HR PATCH TRANSDERM SCH ×2 (08:30→15:56)
[2018-05-28] MEDS: SYMBICORT 160-4.5 MCG INHALER INHALATION SCH ×2 (09:15→20:34)
[2018-05-28 09:34] LABS: ALT 40 U/L (21-72); AST 23 U/L (17-59); Albumin 3.6 g/dL (3.5-5.0); Alkaline Phosphatase 53 U/L (38-126); Anion Gap 7 mmol/L; Blood Urea Nitrogen 15 mg/dL (9-20); Calcium 9.2 mg/dL (8.4-10.2); Carbon Dioxide 24 mmol/L (22-30); Chloride 108 mmol/L (98-107); Glucose 122 mg/dL (74-99); Potassium 4.6 mmol/L (3.5-5.1); Sodium 139 mmol/L (137-145); Total Bilirubin 0.7 mg/dL (0.2-1.3); Total Protein 6.1 g/dL (6.3-8.2)
[2018-05-28 09:39] LABS: Basophils % (A) 0 %; Eosinophils # (A) 0.2 k/uL (0-0.7); Eosinophils % (A) 2 %; HCT 49.9 % (39.0-53.0); HGB 16.2 gm/dL (13.0-17.5); Lymphocytes # (A) 1.1 k/uL (1.0-4.8); Lymphocytes % (A) 12 %; MCH 31.6 pg (25.0-35.0); MCHC 32.4 g/dL (31.0-37.0); MCV 97.5 fL (80.0-100.0); Mean Platelet Volume 7.1; Monocytes # (A) 0.6 k/uL (0-1.0); Monocytes % (A) 6 %; Neutrophils # (A) 7.5 k/uL (1.3-7.7); Neutrophils % (A) 79 %; Platelet Count 279 k/uL (150-450); RBC 5.12 m/uL (4.30-5.90); RDW 13.2 % (11.5-15.5); WBC 9.4 k/uL (3.8-10.6)
[2018-05-28 10:57] VITALS: BMI 27.6
--- NOTE | 2018-05-28 13:01 | P.HP ---
Psychiatric H&P - . H&P Date: 05/28/18 History & Physical: IDENTIFYING DATA: The patient is a 47-year-old male admitted to the psychiatric unit voluntarily with complaints of depression and suicidal ideation. HISTORY OF PRESENT ILLNESS: He alleged that he's been feeling more depressed over the last several weeks. He reports that he feels as though he has " nothing to live for". He spends his time watching videos and no longer is interested in or engages in activities such as fishing and outdoor activities that he used to find enjoyable. He has recurrent passive thoughts of suicide with her he wishes that he were . He also described active thoughts of suicide of shooting himself with a gun. He alleged that the only reason he has not shot himself because he has read about people who shot themselves and were left permanently discontinue GERD and handicapped. He does not own a handgun or rifle. He described most symptoms of depression including fatigue, poor concentration, decreased appetite, lack of ability to enjoy himself in addition to the suicidal thoughts. He was vague about the duration of the symptoms confirms antidepressant for several weeks" or possibly longer".. He described feeling "somewhat" anxious but denied persistent anxiety that interferes with his ability to function. He denied symptoms suggestive of panic attacks. He denied obsessions or compulsions. He denied psychotic symptoms such as auditory , visual or olfactory hallucinations, ideas reference etc. He has a long history of alcohol use problems beginning in early adolescence. He began drinking on a daily basis when he was 14 or 15 years old. He has had multiple alcohol related driving violations resulting in one year incarceration in 1994. 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 He has been drinking "6-8 beers" several times per week. He also smokes cocaine. He has been using cocaine also since adolescence. He lives with a girlfriend who also enjoys cocaine. He smokes marijuana frequently and alleged that he used heroin once. He has never injected drugs. PAST PSYCHIATRIC HISTORY: He had one psychiatric hospitalization at [facility] "about 2 years ago" following a suicide attempt where he overdosed on his girlfriend's prescription medications. He stated he was feeling depressed and he thought that he would end his life by taking the medications. He had outpatient mental health services but was never consistent and always ended services " after 1 or 2 sessions". He stated he met with a psychiatrist "several years ago" and alleged the psychiatrist only prescribed him Klonopin. His primary care provider prescribes Zoloft which did not improve his depressive symptoms. PAST MEDICAL HISTORY: He is a history of COPD and GERD. ALLERGIES: NO KNOWN DRUG ALLERGIES. SUBSTANCE USE HISTORY: As above. He has been in several abuse treatment programs including [facility], [facility], [facility], [facility]. He attended a [facility] recovery program in [place] in March or April of this year. He alleged that he is usually absent 1-3 months after leaving the programs. He has attended AA in the past and alleged that he had a sponsor. He has not attended AA outside of a treatment program "in several years". He is currently not interested in a residential or outpatient substance abuse treatment program. FAMILY PSYCHIATRIC/SUBSTANCE USE HISTORY: His mother, grandfather and sister have history of alcohol use problems. LEGAL HISTORY: He is currently not on probation, parole or has pending charges. As mentioned above he has had multiple DUIs and a one year incarceration related to the multiple DUIs.. SOCIAL HISTORY: His born and raised by an intact family in [facility] [place] [facility]. He has 1 sister. His parents are . He left school in the 10th grade. He is unable to explain the reason for the school. He received his GED while he was in group home. 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 He was for 15 years and has one daughter. He currently lives with his girlfriend. They moved to [place] after attending [facility] and a three- quarter house in [place]. His girlfriend is unemployed and they are supported by her disability. MENTAL STATUS EXAM: He presents as a tall casually groomed male who was pleasant on approach. He made eye contact and attended to the interview. He had no distinction features are prominent physical abnormalities. He had a distressed facial expression. He was alert and oriented to person, place and time. He showed psychomotor retardation but no abnormal movements. His gait was slow but steady. His speech was spontaneous with decreased rate, rhythm and volume. His affect was depressed and not reactive. He expressed suicidal ideation and wishes. He denied homicidal ideation. He expresses depressive cognitions as hopelessness, helplessness and worthlessness. He did not express ideas reference, paranoid ideation or delusional thoughts. His thinking was concrete. Associations were coherent, logical and goal directed. He denied hallucinations and did not appear to be responding to internal stimuli. Global impression of intellect is average. He is aware of his illness and need for mental health treatment. STRENGTHS: Stable housing, supportive relationship, good physical health. WEAKNESSES: Chronic alcohol use problems, chronic cocaine use problems, lack of stable employment. IMPRESSION: He is a 47-year-old male with long history of an alcohol use disorder. He presented to the psychiatric unit with complaints of increasing depression and suicidal ideation. He drinks to intoxication several times per week but does not feel his alcohol use or cocaine use as a major problem at this time. He endorsed most symptoms of depression and his depressions uncomplicated by psychotic symptoms. He should be treated on an inpatient basis with combination of psychopharmacology and multimodal therapy. PRINCIPLE DIAGNOSIS: Major depressive disorder severe without psychotic features , alcohol use disorder severe, cocaine use disorder unspecified, cannabis use disorder unspecified RECOMMENDATION: Admitted to the psychiatric unit. Safety precautions. Consult medicine for initial physical exam and medical history. 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 Begin Effexor XR 75 mg daily and titrated according to clinical response and tolerance. Encourage participation in therapeutic groups and activities. Evaluate clinical status response to treatment daily basis. Allergies Allergy/AdvReac Type Severity Status Date / Time No Known Allergies Allergy Verified 05/27/18 17:40 Vital Signs Temp 98.6 F 05/28/18 06:15 Pulse 70 05/28/18 06:15 Resp 18 05/28/18 06:15 BP 119/67 05/28/18 06:15 Pulse Ox 98 05/27/18 16:55 Intake & Output 05/27/18 05/28/18 05/28/18 18:59 06:59 18:59 Weight 102.982 kg 102.982 kg Laboratory Last Values WBC 9.4 k/uL (3.8-10.6) 05/28/18 08:33 RBC 5.12 m/uL (4.30-5.90) 05/28/18 08:33 Hgb 16.2 gm/dL (13.0-17.5) 05/28/18 08:33 Hct 49.9 % (39.0-53.0) 05/28/18 08:33 MCV 97.5 fL (80.0-100.0) 05/28/18 08:33 MCH 31.6 pg (25.0-35.0) 05/28/18 08:33 MCHC 32.4 g/dL (31.0-37.0) 05/28/18 08:33 RDW 13.2 % (11.5-15.5) 05/28/18 08:33 Plt Count 279 k/uL (150-450) 05/28/18 08:33 Neutrophils % 79 % 05/28/18 08:33 Lymphocytes % 12 % 05/28/18 08:33 Monocytes % 6 % 05/28/18 08:33 Eosinophils % 2 % 05/28/18 08:33 Basophils % 0 % 05/28/18 08:33 Neutrophils # 7.5 k/uL (1.3-7.7) 05/28/18 08:33 Lymphocytes # 1.1 k/uL (1.0-4.8) 05/28/18 08:33 Monocytes # 0.6 k/uL (0-1.0) 05/28/18 08:33 Eosinophils # 0.2 k/uL (0-0.7) 05/28/18 08:33 Basophils # 0.0 k/uL (0-0.2) 05/28/18 08:33 Sodium 139 mmol/L (137-145) 05/28/18 08:33 Potassium 4.6 mmol/L (3.5-5.1) 05/28/18 08:33 Chloride 108 mmol/L (98-107) H 05/28/18 08:33 Carbon Dioxide 24 mmol/L (22-30) 05/28/18 08:33 Anion Gap 7 mmol/L 05/28/18 08:33 BUN 15 mg/dL (9-20) 05/28/18 08:33 Creatinine 1.01 mg/dL (0.66-1.25) 05/28/18 08:33 Est GFR (CKD-EPI)AfAm >90 (>60 ml/min/1.73 sqM) 05/28/18 08:33 Est GFR (CKD-EPI)NonAf 89 (>60 ml/min/1.73 sqM) 05/28/18 08:33 Glucose 122 mg/dL (74-99) H 05/28/18 08:33 Calcium 9.2 mg/dL (8.4-10.2) 05/28/18 08:33 Total Bilirubin 0.7 mg/dL (0.2-1.3) 05/28/18 08:33 AST 23 U/L (17-59) 05/28/18 08:33 ALT 40 U/L (21-72) 05/28/18 08:33 Alkaline Phosphatase 53 U/L (38-126) 05/28/18 08:33 Total Protein 6.1 g/dL (6.3-8.2) L 05/28/18 08:33 Albumin 3.6 g/dL (3.5-5.0) 05/28/18 08:33 TSH 0.876 mIU/L (0.465-4.680) 05/28/18 08:33 Urine Opiates Screen Not Detected (NotDetected) 05/27/18 14:00 Ur Oxycodone Screen Not Detected (NotDetected) 05/27/18 14:00 Urine Methadone Screen Not Detected (NotDetected) 05/27/18 14:00 Ur Propoxyphene Screen Not Detected (NotDetected) 05/27/18 14:00 Ur Barbiturates Screen Not Detected (NotDetected) 05/27/18 14:00 U Tricyclic Antidepress Not Detected (NotDetected) 05/27/18 14:00 Ur Phencyclidine Scrn Not Detected (NotDetected) 05/27/18 14:00 Ur Amphetamines Screen Not Detected (NotDetected) 05/27/18 14:00 U Methamphetamines Scrn Not Detected (NotDetected) 05/27/18 14:00 U Benzodiazepines Scrn Not Detected (NotDetected) 05/27/18 14:00 Urine Cocaine Screen Detected (NotDetected) H 05/27/18 14:00 U Marijuana (THC) Screen Detected (NotDetected) H 05/27/18 14:00 05/28/18 12:33
[2018-05-28] MEDS: VENLAFAXINE HCL ER 75 MG CAP PO SCH (14:44)
[2018-05-28] MEDS ORDERED: IPRATROPIUM-ALBUTEROL 3 ML NEB INHALATION PRN (21:42)
--- NOTE | 2018-05-28 21:45 | P.MDCNMH ---
History of Present Illness H&P Date: 05/28/18 Chief Complaint: Medical management of COPD and GERD Patient is a 47-year-old male with a known history of COPD, GERD and nicotine addiction presented to ER with complaints of depression and having thoughts about shooting himself. Patient has been having polysubstance abuse. Patient is using cocaine and marijuana and heroin. Patient says that he is supposed to use inhaler and nebulization at home. He was using Symbicort albuterol and Spiriva. Currently patient is not able to take care of himself and stopping using all the medications. Patient says that he felt very depressed. Otherwise denied any fever or chills. No nausea vomiting or abdominal pain. No diarrhea or dysuria. No headache or dizziness or lightheadedness. No chest pain or shortness of breath currently. UDS is positive for cocaine and marijuana. TSH within normal limits. All other laboratory data reviewed. Review of Systems Constitutional: Patient denies any fever or chills . No generalized weakness or weight loss. Abdomen: Patient denied nausea vomiting and diarrhea and abdominal pain. Cardiovascular: Patient denies any chest pain or short of breath no palpitations. Respiratory: patient denied any cough is from production. No shortness of breath Neurologic: Patient denied any numbness or tingling headache. Musculoskeletal: Patient denies any complaints of joint swelling or deformity. Skin: Negative Psychiatric: Anxious Endocrine: No heat or cold intolerance. No recent weight gain. Genitourinary: No dysuria or hematuria. All other 14 point ROS negative except the above Past Medical History Past Medical History: COPD, GERD/Reflux History of Any Multi-Drug Resistant Organisms: None Reported Past Surgical History: Adenoidectomy, Heart Catheterization, Tonsillectomy Additional Past Surgical History / Comment(s): 2013 heart cath r/t sob Past Anesthesia/Blood Transfusion Reactions: No Reported Reaction Past Psychological History: Anxiety, Depression Smoking Status: Current every day smoker Past Alcohol Use History: Occasional Past Drug Use History: Marijuana - Past Family History Father History Unknown: Yes Medications and Allergies Home Medications Medication Instructions Recorded Confirmed Type Budesonide/Formoterol Fumarate 2 puff INHALATION RT-BID 09/19/17 05/27/18 History [Symbicort 160-4.5 Mcg Inhaler] Omeprazole 20 mg PO DAILY 12/08/17 05/27/18 History Tiotropium 18 Mcg/Puff [Spiriva] 1 puff INHALATION DAILY 05/27/18 05/27/18 History Allergies Allergy/AdvReac Type Severity Reaction Status Date / Time No Known Allergies Allergy Verified 05/27/18 17:40 Physical Exam Vitals: Vital Signs Temp Pulse Resp BP 05/28/18 06:15 98.6 F 70 18 119/67 Intake and Output 05/28/18 05/28/18 05/28/18 06:59 14:59 22:59 Other: Weight 102.982 kg PHYSICAL EXAMINATION: Patient is lying in the bed comfortably, no acute distress, awake alert and oriented.. HEENT: Normocephalic. Neck is supple. Pupils reactive. Nostrils clear. Oral cavity is moist. Ears reveal no drainage. Neck reveals no JVD, carotid bruits, or thyromegaly. CHEST EXAMINATION: Trachea is central. Symmetrical expansion. Prolonged expiration. Lung best clear to auscultation and percussion. CARDIAC: Normal S1, S2 with no gallops. No murmurs ABDOMEN: Soft. Bowel sounds normal. No organomegaly. No abdominal bruits. Extremities: reveal no edema. No clubbing or cyanosis Neurologically awake, alert, oriented x3 with well-coordinated movements. No focal deficits noted Skin: No rash or skin lesions. Psychiatric: Coperative. Nonsuicidal Musculoskeletal: No joint swelling or deformity. Normal range of motion. Cranial Nerve Examination - Cranial Nerves Cranial Nerve I- Olfactory: Intact Cranial Nerve II- Optic: Intact Cranial Nerve III- Oculomotor: Intact Cranial Nerve IV- Trochlear: Intact Cranial Nerve V- Trigeminal: Intact Cranial Nerve - Abducens: Intact Cranial Nerve VII- Facial: Intact Cranial Nerve VIII- Auditory: Intact Cranial Nerve IX- Glossopharyngeal: Intact Cranial Nerve X- Vagus: Intact Cranial Nerve XI- Accessory: Intact Cranial Nerve XII- Hypoglossal: Intact Results CBC & Chem 7: 05/28/18 08:33 05/28/18 08:33 Labs: Abnormal Lab Results - Last 24 Hours (Table) 05/28/18 Range/Units 08:33 Chloride 108 H (98-107) mmol/L Glucose 122 H (74-99) mg/dL Total Protein 6.1 L (6.3-8.2) g/dL Assessment and Plan Assessment: Depression with suicidal ideation COPD stable. GERD Nicotine addiction Polysubstance abuse with cocaine and marijuana DVT prophylaxis. Patient is ambulating. Plan: Patient will be continued on his current psychiatric medications. Continue with duo nebs when necessary and Symbicort 2 puffs twice a day. Continue with PPI. Patient has been counseled extensively for smoking cessation and polysubstance abuse. Further recommendations based on the clinical course. Thank you for your consult. Time with Patient: Greater than 30
[2018-05-29] MEDS: SYMBICORT 160-4.5 MCG INHALER INHALATION SCH ×2 (09:26→18:43)
[2018-05-29] MEDS: PANTOPRAZOLE 40 MG TABLET PO SCH (09:33)
[2018-05-29] MEDS: VENLAFAXINE HCL ER 75 MG CAP PO SCH (09:34)
--- NOTE | 2018-05-29 12:46 | P.PN ---
Progress Note - Text Progress Note Date: 05/29/18 Clinical Problems: Major depressive disorder severe without psychotic features, alcohol use disorder severe, cocaine use disorder unspecified, cannabis use disorder unspecified Interim history: I reviewed the medical record, interviewed the patient and discuss his treatment and treatment plan during team meeting. He reported continued feelings of depression, hopelessness and helplessness. He talked about finding no happiness in life, no reason to live and often wishing that he were . He frequently used the phrase "what's the use" when referring to his life and responding to questions about goals, ambitions and future plans. He believes that every plan or goal that he is made in his life has been thwarted by his behavior particularly has recurrent problems with alcohol and drugs. 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 He enjoyed the work and felt "happy" but was terminated because of his alcohol use problems). He feels fatalistic that despite his best intentions he will relapse and sabotage his achievements. He acknowledges that his use of alcohol and drug has been a problem in the past but does not see it as a significant problem presently. He is not interested in a substance abuse treatment program and steadfast against entering another residential program. He denied symptoms of alcohol withdrawal He denied side effects to the initial dose of Effexor. Mental status exam: He presented as a tall casually groomed male who was pleasant on approach. He made eye contact and attended the interview. He showed psychomotor retardation but no abnormal movements. He was not tremulous or diaphoretic. His speech was spontaneous with decreased rate, volume and rhythm. His affect was depressed and not reactive. He expressed suicidal ideations or wishes. He denied homicidal ideation. He feels hopeless, helpless and worthless. He ruminated about his past failures, recurrent problems with alcohol and drugs and dissatisfaction with his life. He did not express ideas reference, paranoid ideation or delusional thoughts. His thinking was concrete but his associations were coherent and logical. He denied hallucinations and did not appear to be responding to internal stimuli. Assessment: He has no signs or symptoms of alcohol withdrawal. He continues to express suicidal ideation and feelings of hopelessness and helplessness. He continues to meet criteria for inpatient psychiatric services. Plan: Continue inpatient hospitalization. Continue safety precautions. Continue Effexor XR 75 mg daily and titrated according to clinical response and tolerance. Continue other medications as recommended by the consulting hospitalists. Continue discuss the role of substance abuse treatment. Encourage participation in therapeutic groups and activities. Evaluate clinical status response to treatment on a daily basis.
[2018-05-30] MEDS: VENLAFAXINE HCL ER 75 MG CAP PO SCH (08:25)
[2018-05-30] MEDS: PANTOPRAZOLE 40 MG TABLET PO SCH (08:25)
[2018-05-30] MEDS: SYMBICORT 160-4.5 MCG INHALER INHALATION SCH ×2 (09:38→20:48)
--- NOTE | 2018-05-30 18:08 | P.PN ---
Progress Note - Text Progress Note Date: 05/30/18 IDENTIFICATION DATA: 47-year-old male admitted to the psychiatric unit voluntarily with complaints of depression and suicidal ideation. His last psychiatric hospitalization was two years ago. He has history of treatment non compliance and polysubstane use disorder. INTERVAL HISTORY: He reports being complaint with his medications. No side effects reported. He continues to feel depressed and suicidal. He however says he feels safe being in the hospital. He reports amotivation and low energy levels. He is making effort to go to his assigned groups, but says he cannot stay focused in the groups. He reports taking naps during the day. He reports good appetite. He reports talking to his girl friend over the phone. He did not sound happy when he talked about his girl friend visiting him today. He stated he doesnt really care whether she comes or not. MENTAL STATUS EXAMINATION: Patient appeared his stated age in fair grooming and hygiene. He maintains good eye contact. No abnormal movements noted. His mood is reported as I dont care, and affect is constricted. His speech and thought process are linear and goal directed. He denies current auditory or visual hallucinations. No paranoia. The patient is alert and oriented 4. Reports suicidal ideations. Denies homicidal ideation. insight and judgment are limited. ASSESSMENT AND PLAN: Continue current medications Encourage participation in groups Continue safety precautions Monitor symptoms
[2018-05-31] MEDS: PANTOPRAZOLE 40 MG TABLET PO SCH (08:14)
[2018-05-31] MEDS: VENLAFAXINE HCL ER 75 MG CAP PO SCH (08:14)
[2018-05-31] MEDS: SYMBICORT 160-4.5 MCG INHALER INHALATION SCH ×2 (09:17→20:16)
[2018-05-31 09:40] LABS: Appearance,Urine Clear (Clear); Bilirubin,Urine Negative (Negative); Blood,Urine Negative (Negative); Color,Urine Yellow; Glucose,Urine (UA) Negative (Negative); Ketones,Urine Negative (Negative); Leukocyte Esterase,Urine Negative (Negative); Nitrite,Urine Negative (Negative); PH, Urine 5.5 (5.0-8.0); Protein,Urine Negative (Negative); Specific Gravity,Urine 1.012 (1.001-1.035); Urobilinogen,Urine <2.0 mg/dL (<2.0)
--- NOTE | 2018-05-31 15:49 | P.PN ---
Progress Note - Text Progress Note Date: 05/31/18 IDENTIFYING INFORMATION 47-year-old male admitted to the psychiatric unit voluntarily with complaints of depression and suicidal ideation. His last psychiatric hospitalization was two years ago. He has history of treatment non compliance and polysubstane use disorder. INTERVAL HISTORY: He is complaint with his medications. No side effects reported. He says he is keeping himself busy going to all his groups. He says he is still some what depressed. He however denies suicidal ideations today. He reports to have had a family meeting with h is girlfriend and the social science manager . They talked about some of the issues he is having. He says he is trying to figure out what needs to be done when he gets discharged from here. He is currently motivated to follow up with out patient treatment. He reports good sleep and appetite. MENTAL STATUS EXAMINATION: Patient appeared his stated age in fair grooming and hygiene. He maintains good eye contact. No abnormal movements noted. His mood is reported its getting there , and affect is constricted. His speech and thought process are linear and goal directed. He denies current auditory or visual hallucinations. No paranoia. The patient is alert and oriented 4. Denies current suicidal ideations and homicidal ideation. insight and judgment are improving. ASSESSMENT AND PLAN: Continue current medications Encourage participation in groups Continue safety precautions Monitor symptoms
[2018-06-01] MEDS: VENLAFAXINE HCL ER 75 MG CAP PO SCH (07:57)
[2018-06-01] MEDS: PANTOPRAZOLE 40 MG TABLET PO SCH (07:57)
[2018-06-01] MEDS: SYMBICORT 160-4.5 MCG INHALER INHALATION SCH ×2 (08:49→21:47)
--- NOTE | 2018-06-01 12:37 | P.PN ---
Progress Note - Text Progress Note Date: 06/01/18 Clinical Problems: Major depressive disorder severe without psychotic features, alcohol use disorder severe, cocaine use disorder unspecified, cannabis use disorder unspecified Interim history: I reviewed the medical record, interviewed the patient and discuss his treatment and treatment plan during team meeting. He denied feeling depressed or having thoughts of or suicide. He attributed the change in his mood and thinking to the the conjoint meeting the social media developer had arranged with his girlfriend. This meeting allowed both he and his girlfriend to discussed her concerns. He talked about her concern over his use of alcohol drug and his concerned that they are both a risk for relapse to each other. He began attending therapeutic groups and activities over the weekend. He denied side effects to venlafaxine. He requested assistance in obtaining an appointment for services through [facility]. He also talked about reengage with Alcoholics Anonymous. He knew the location of several AA meetings in the area. Mental status exam: He presented as a tall casually groomed male who was pleasant on approach. He made eye contact and attended to the interview. He had a blunted facial expression. He showed slight psychomotor retardation but no abnormal movements. His gait was slow but steady. His speech was spontaneous with slight decrease and rhythm but normal volume. He had no articulation difficulties. His affect was blunted but stable and appropriate. He denied suicidal ideation, wishes or homicidal ideation. He denied feeling hopeless, helpless or worthless. He did not express ideas reference or paranoid delusions. His thinking was abstract and associations were coherent and logical. He denied hallucinations and did not appear to be responding to internal stimuli. Assessment: He appears much improved than on admission denying feelings of hopelessness, helplessness or worthlessness. Plan: His mood remains stable discharge and on 06/02/2018. Continue suicide precautions. Continue Effexor 75 mg daily. rigging worker to coordinate aftercare appointments. Encourage continued participation in therapeutic groups and activities. Evaluate clinical status response to treatment daily basis.
[2018-06-02 06:31] VITALS: BP 119/70; PULSE 69; RESP 16; TEMP 97.8
[2018-06-02] MEDS: PANTOPRAZOLE 40 MG TABLET PO SCH (08:19)
[2018-06-02] MEDS: VENLAFAXINE HCL ER 75 MG CAP PO SCH (08:19)
[2018-06-02] MEDS: SYMBICORT 160-4.5 MCG INHALER INHALATION SCH (10:59)
--- NOTE | 2018-06-02 11:09 | P.DS ---
Providers Date of admission: 05/27/18 16:50 Expected date of discharge: 06/02/18 Attending physician: Keyshawn Marie Consults: 05/27/18 18:49 Consult Physician Routine Consulting Provider: Pam Patel Consult Reason/Comments: H and P Do you want consulting provider notified?: Yes Primary care physician: Val Concepcion - Discharge Diagnosis(es) (1) Major depressive disorder, recurrent severe without psychotic features Current Visit: Yes Status: Acute Priority: High (2) Alcohol use disorder, severe, dependence Current Visit: Yes Status: Acute Priority: High (3) Cocaine use disorder Current Visit: Yes Status: Acute Priority: Medium (4) Cannabis use disorder, mild, abuse Current Visit: Yes Status: Acute Priority: Medium Hospital Course: Brief summary of admission note: This patient is a 47-year-old male that was admitted to the psychiatric unit with worsening symptoms of depression and suicidal ideation. He reported being depressed over the last several weeks and felt he had nothing to live for. He reported feelings of anhedonia. He had thoughts of shooting himself with a gun. He reported feeling fatigued having poor concentration and low appetite. This occurred in the context of active alcohol use cocaine use and marijuana use. For full detail please refer to Dr. Graves's history and physical exam dated 05/28/2018. Summary of hospital course: The patient was admitted to the mental health unit under the care of Dr. Graves. The patient was seen by internal medicine for routine history and physical exam. During the course of the hospitalization he was started on Effexor XR which is currently at 75 mg daily. The patient opted not to attend inpatient chemical dependency treatment and prefers outpatient care. He has been screened to attend community mental health and he plans on going to AA meetings. For full detail regarding his treatment on the mental health unit please refer to the progress notes from Dr. Graves. I assumed care of the patient starting today I interviewed him this morning after reviewing all of his records pertaining to this admission and agree with the discharge. Mental status exam: The patient is a tall ball male appearing his stated age. He presents dressed in his own clothing. Hygiene grooming adequate. Eye contact is appropriate speech is fluent spontaneous nonpressured. He is pleasant cooperative and easily directed during the session. He is reporting no suicidal or homicidal ideation intent or plan. He is reporting no auditory or visual hallucinations or any specific delusions there is no observed evidence of psychosis. He does not appear hypomanic or manic. Thought process is linear he demonstrates no tangential thinking loose associations or flight of ideas. Insight and judgment are grossly intact. He is oriented to person place and date. He demonstrates no involuntary repetitive movements. He demonstrates future oriented thinking. Impressions 1. Major depressive disorder recurrent severe without psychosis, alcohol use disorder, cocaine use disorder, cannabis use disorder Plan: The patient will be discharged mental health unit today to return home. He will follow up with [facility] and will attend a walk-in appointment today. He does not wish to participate in inpatient chemical dependency treatment but is willing to address his substance use issues as an outpatient. He will continue on Effexor XR 75 mg in the morning. There is no imminent safety risk he has sufficiently stabilized and is appropriate for transition outpatient care. He is instructed to return to the hospital for any acute safety concerns. He is instructed to abstain from any use of alcohol marijuana or any illicit drug as it can provoke his mood symptoms and elevate his safety risk. He has no ownership or reported access to firearms. Patient Condition at Discharge: Stable Plan - Discharge Summary Discharge Rx Participant: No New Discharge Prescriptions: New Venlafaxine HCl ER [Effexor XR] 75 mg PO DAILY #30 cap.er.24h Continue Budesonide/Formoterol Fumarate [Symbicort 160-4.5 Mcg Inhaler] 2 puff INHALATION RT-BID Omeprazole 20 mg PO DAILY Tiotropium 18 Mcg/Puff [Spiriva] 1 puff INHALATION DAILY Discharge Medication List Budesonide/Formoterol Fumarate [Symbicort 160-4.5 Mcg Inhaler] 2 puff INHALATION RT-BID 09/19/17 [History] Omeprazole 20 mg PO DAILY 12/08/17 [History] Tiotropium 18 Mcg/Puff [Spiriva] 1 puff INHALATION DAILY 05/27/18 [History] Venlafaxine HCl ER [Effexor XR] 75 mg PO DAILY #30 cap.er.24h 06/01/18 [Rx] Follow up Appointment(s)/Referral(s): [facility] [Outside] - 1-2 Days (walk in intake today until Friday 830 - 300pm Thursday 830 - 300pm) Val Concepcion MD [Primary Care Provider] - 1-2 days Patient Instructions/Handouts: Depression (DC), COPD (Chronic Obstructive Pulmonary Disease) (DC), Alcohol Intoxication (DC), Suicide Prevention (DC) Activity/Diet/Wound Care/Special Instructions: Activity and diet as tolerated. Avoid the use of street drugs and alcohol. Remove all firearms from the home. Take all medications as prescribed. Follow up with your Primary Care Physician in one to two days. When you are in need of refills on your medications please contact your medical provider and/or your outpatient psychiatrist to have this done. Please go to the scheduled outpatient appointment for aftercare. If symptoms return or become worse call the crisis line and/ or go the nearest emergency room for an evaluation. l Discharge Disposition: HOME SELF-CARE
== END 2018-06-02 11:41 | disposition home or self-care (01) | DRG 885 ==
LOC: EC 09:42 → 3MHU 16:50
PROVIDERS: ADMIT Psychiatry & Neurology Psychiatry; ATTEND Psychiatry & Neurology Psychiatry
DX: F33.2 Major depressive disorder, recurrent severe without psychotic features (principal); R45.851 Suicidal ideations; F10.20 Alcohol dependence, uncomplicated; F12.10 Cannabis abuse, uncomplicated; F14.10 Cocaine abuse, uncomplicated; F17.200 Nicotine dependence, unspecified, uncomplicated; J44.9 Chronic obstructive pulmonary disease, unspecified; K21.9 Gastro-esophageal reflux disease without esophagitis; Z79.51 Long term (current) use of inhaled steroids; Z91.19 Patient's noncompliance with other medical treatment and regimen; Z91.5 Personal history of self-harm; Z79.899 Other long term (current) drug therapy
CPT/HCPCS: 71046; 80053; 80306; 81003; 82075; 84443; 85025; 94640; 99285

== ENCOUNTER 2018-06-26 14:20 | Inpatient (IN) | payer OTHER ==
[2018-06-26] MEDS ORDERED: IPRATROPIUM-ALBUTEROL 3 ML NEB INHALATION STA (14:36)
[2018-06-26] MEDS ORDERED: methylPREDNISolone SOD SUCCI 125 MG/2 ML VIAL IV STA (14:39)
[2018-06-26] MEDS ORDERED: SODIUM CHLORIDE 0.9% 500 ML 500 ML IV STA (14:39)
[2018-06-26 15:23] LABS: Basophils % (A) 0 %; Eosinophils # (A) 0.2 k/uL (0-0.7); Eosinophils % (A) 3 %; HCT 45.6 % (39.0-53.0); HGB 15.7 gm/dL (13.0-17.5); Lymphocytes # (A) 0.9 k/uL (1.0-4.8); Lymphocytes % (A) 12 %; MCH 32.2 pg (25.0-35.0); MCHC 34.5 g/dL (31.0-37.0); MCV 93.5 fL (80.0-100.0); Mean Platelet Volume 7.5; Monocytes # (A) 0.5 k/uL (0-1.0); Monocytes % (A) 6 %; Neutrophils # (A) 6.2 k/uL (1.3-7.7); Neutrophils % (A) 77 %; Platelet Count 189 k/uL (150-450); RBC 4.88 m/uL (4.30-5.90); RDW 12.7 % (11.5-15.5); WBC 8.1 k/uL (3.8-10.6)
[2018-06-26 15:32] LABS: Partial Thromboplastin Time 23.8 sec (22.0-30.0); Prothrombin Time 9.5 sec (9.0-12.0)
[2018-06-26 15:36] LABS: ALT 17 U/L (21-72); AST 43 U/L (17-59); Alcohol <10 mg/dL; Alkaline Phosphatase 72 U/L (38-126); Anion Gap 6 mmol/L; Blood Urea Nitrogen 9 mg/dL (9-20); Calcium 9.2 mg/dL (8.4-10.2); Carbon Dioxide 22 mmol/L (22-30); Chloride 111 mmol/L (98-107); Glucose 92 mg/dL (74-99); Magnesium 1.7 mg/dL (1.6-2.3); Potassium 5.2 mmol/L (3.5-5.1); Sodium 139 mmol/L (137-145); Total Bilirubin 0.8 mg/dL (0.2-1.3); Total Protein 6.8 g/dL (6.3-8.2)
[2018-06-26 15:42] LABS: Creatine Kinase 313 U/L (55-170)
--- NOTE | 2018-06-26 15:46 | XR ---
EXAMINATION TYPE: XR chest 2V DATE OF EXAM: 06/26/2018 COMPARISON: 05/27/2018 HISTORY: Cough, wheezing, and shortness of breath. TECHNIQUE: Frontal and lateral views of the chest are obtained. FINDINGS: There is pulmonary hyperinflation and flattening of the diaphragms on the lateral image wit h biapical lucency representing underlying COPD. There is also increased retrosternal airspace lincoln tible with underlying COPD. There is no focal air space opacity, pleural effusion, or pneumothorax se en. The cardiac silhouette size is within normal limits. The osseous structures are intact. Minima l multilevel degenerative changes of the thoracic spine are seen. IMPRESSION: No acute cardiopulmonary process. Radiographic sequela of COPD
[2018-06-26 15:55] LABS: Creatine Kinase MB 3.7 ng/mL (0.0-2.4); Troponin I <0.012 ng/mL (0.000-0.034)
[2018-06-26] MEDS ORDERED: ALBUTEROL NEBULIZED 2.5 MG/3 ML INHALATION STA (16:14)
[2018-06-26] MEDS ORDERED: ALBUTEROL NEBULIZED 2.5 MG/3 ML INHALATION PRN (16:18)
--- NOTE | 2018-06-26 16:18 | ED ---
SOB HPI - General Chief Complaint: Shortness of Breath Stated Complaint: COPD Time Seen by Provider: 06/26/18 14:36 Source: patient, RN notes reviewed Mode of arrival: ambulatory Limitations: no limitations - History of Present Illness Initial Comments: 47-year-old male presents emergency Department chief complaint shortness breath , cough congestion. Patient did see the smoker history of COPD. Patient states that he is been using his inhaler with no relief. Patient states it hurts to cough but denies chest pain otherwise. Denies any nausea vomiting. Patient also states that he is suicidal, severely depressed. He states he has not tried to harm himself d - Related Data Home Medications Medication Instructions Recorded Confirmed Budesonide/Formoterol Fumarate 2 puff INHALATION RT-BID 09/19/17 06/26/18 [Symbicort 160-4.5 Mcg Inhaler] Omeprazole 20 mg PO DAILY 12/08/17 06/26/18 Albuterol Inhaler [Ventolin Hfa 2 puff INHALATION RT-QID PRN 06/26/18 06/26/18 Inhaler] Albuterol Nebulized [Ventolin 2.5 mg INHALATION RT-QID PRN 06/26/18 06/26/18 Nebulized] Previous Rx's Medication Instructions Recorded Venlafaxine HCl ER [Effexor XR] 75 mg PO DAILY #30 cap.er.24h 06/01/18 Allergies Allergy/AdvReac Type Severity Reaction Status Date / Time No Known Allergies Allergy Verified 06/26/18 15:26 Review of Systems ROS Statement: Those systems with pertinent positive or pertinent negative responses have been documented in the HPI. ROS Other: All systems not noted in ROS Statement are negative. Past Medical History Past Medical History: COPD, GERD/Reflux History of Any Multi-Drug Resistant Organisms: None Reported Past Surgical History: Adenoidectomy, Heart Catheterization, Tonsillectomy Additional Past Surgical History / Comment(s): 2013 heart cath r/t sob Past Anesthesia/Blood Transfusion Reactions: No Reported Reaction Past Psychological History: Anxiety, Depression Smoking Status: Current every day smoker - Past Family History Father History Unknown: Yes General Exam Limitations: no limitations General appearance: alert, in no apparent distress Head exam: Present: atraumatic, normocephalic, normal inspection Eye exam: Present: normal appearance, PERRL, EOMI. Absent: scleral icterus, conjunctival injection, periorbital swelling ENT exam: Present: normal exam, normal oropharynx, mucous membranes moist Neck exam: Present: normal inspection. Absent: tenderness, meningismus, lymphadenopathy Respiratory exam: Present: respiratory distress, wheezes. Absent: normal lung sounds bilaterally, rales, rhonchi, stridor Cardiovascular Exam: Present: normal rhythm, tachycardia (Heart rate 140), normal heart sounds. Absent: systolic murmur, diastolic murmur, rubs, gallop, clicks Neurological exam: Present: alert, oriented X3, CN II-XII intact Psychiatric exam: Present: depressed Course Vital Signs 06/26/18 06/26/18 06/26/18 14:22 14:49 15:08 Temperature 97.9 F Pulse Rate 140 H 112 H 120 H Respiratory 38 H Rate Blood Pressure 142/78 O2 Sat by Pulse 99 Oximetry Medical Decision Making - Medical Decision Making 47-year-old male presented for dyspnea. Patient will be admitted for COPD exacerbation IV steroids, breathing treatments. Patient will have psych consult on the floor. Patient will be on suicide precautions. - Lab Data Result diagrams: 06/26/18 14:40 06/26/18 14:40 Lab Results 06/26/18 06/26/18 06/26/18 Range/Units 14:40 14:40 14:40 WBC 8.1 (3.8-10.6) k/uL RBC 4.88 (4.30-5.90) m/uL Hgb 15.7 (13.0-17.5) gm/dL Hct 45.6 (39.0-53.0) % MCV 93.5 (80.0-100.0) fL MCH 32.2 (25.0-35.0) pg MCHC 34.5 (31.0-37.0) g/dL RDW 12.7 (11.5-15.5) % Plt Count 189 (150-450) k/uL Neutrophils % 77 % Lymphocytes % 12 % Monocytes % 6 % Eosinophils % 3 % Basophils % 0 % Neutrophils # 6.2 (1.3-7.7) k/uL Lymphocytes # 0.9 L (1.0-4.8) k/uL Monocytes # 0.5 (0-1.0) k/uL Eosinophils # 0.2 (0-0.7) k/uL Basophils # 0.0 (0-0.2) k/uL PT (9.0-12.0) sec INR (<1.2) APTT (22.0-30.0) sec Sodium 139 (137-145) mmol/L Potassium 5.2 H (3.5-5.1) mmol/L Chloride 111 H (98-107) mmol/L Carbon Dioxide 22 (22-30) mmol/L Anion Gap 6 mmol/L BUN 9 (9-20) mg/dL Creatinine 0.76 (0.66-1.25) mg/dL Est GFR (CKD-EPI)AfAm >90 (>60 ml/min/1.73 sqM) Est GFR (CKD-EPI)NonAf >90 (>60 ml/min/1.73 sqM) Glucose 92 (74-99) mg/dL Calcium 9.2 (8.4-10.2) mg/dL Magnesium 1.7 (1.6-2.3) mg/dL Total Bilirubin 0.8 (0.2-1.3) mg/dL AST 43 (17-59) U/L ALT 17 L (21-72) U/L Alkaline Phosphatase 72 (38-126) U/L Total Creatine Kinase 313 H (55-170) U/L CK-MB (CK-2) 3.7 H (0.0-2.4) ng/mL CK-MB (CK-2) Rel Index 1.2 Troponin I <0.012 (0.000-0.034) ng/mL NT-Pro-B Natriuret Pep pg/mL Total Protein 6.8 (6.3-8.2) g/dL Albumin 4.0 (3.5-5.0) g/dL Serum Alcohol <10 mg/dL 06/26/18 06/26/18 Range/Units 14:40 14:40 WBC (3.8-10.6) k/uL RBC (4.30-5.90) m/uL Hgb (13.0-17.5) gm/dL Hct (39.0-53.0) % MCV (80.0-100.0) fL MCH (25.0-35.0) pg MCHC (31.0-37.0) g/dL RDW (11.5-15.5) % Plt Count (150-450) k/uL Neutrophils % % Lymphocytes % % Monocytes % % Eosinophils % % Basophils % % Neutrophils # (1.3-7.7) k/uL Lymphocytes # (1.0-4.8) k/uL Monocytes # (0-1.0) k/uL Eosinophils # (0-0.7) k/uL Basophils # (0-0.2) k/uL PT 9.5 (9.0-12.0) sec INR 1.0 (<1.2) APTT 23.8 (22.0-30.0) sec Sodium (137-145) mmol/L Potassium (3.5-5.1) mmol/L Chloride (98-107) mmol/L Carbon Dioxide (22-30) mmol/L Anion Gap mmol/L BUN (9-20) mg/dL Creatinine (0.66-1.25) mg/dL Est GFR (CKD-EPI)AfAm (>60 ml/min/1.73 sqM) Est GFR (CKD-EPI)NonAf (>60 ml/min/1.73 sqM) Glucose (74-99) mg/dL Calcium (8.4-10.2) mg/dL Magnesium (1.6-2.3) mg/dL Total Bilirubin (0.2-1.3) mg/dL AST (17-59) U/L ALT (21-72) U/L Alkaline Phosphatase (38-126) U/L Total Creatine Kinase (55-170) U/L CK-MB (CK-2) (0.0-2.4) ng/mL CK-MB (CK-2) Rel Index Troponin I (0.000-0.034) ng/mL NT-Pro-B Natriuret Pep 113 pg/mL Total Protein (6.3-8.2) g/dL Albumin (3.5-5.0) g/dL Serum Alcohol mg/dL - EKG Data EKG Comments: EKG performed at 14:52 sinus tachycardia rate 106 VA 146 QRS 82 QT/QTC 366/486 Disposition Clinical Impression: COPD with acute exacerbation, Suicidal ideation Disposition: ADMITTED IP TO THIS HOSP Condition: Fair Referrals: Val Concepcion MD [Primary Care Provider] - 1-2 days
[2018-06-26 16:39] LABS: Amphetamine Screen,Urine Not Detected (NotDetected); Barbiturate Screen,Urine Not Detected (NotDetected); Benzodiazepines Screen,Urine Not Detected (NotDetected); Cocaine Screen,Urine Detected (NotDetected); Methadone Screen, Urine Not Detected (NotDetected); Opiate Screen,Urine Not Detected (NotDetected); Oxycodone Screen, Urine Not Detected (NotDetected); Phencyclidine Screen,Urine Not Detected (NotDetected); Tricyclic Antidepressant,Urine Detected (NotDetected); Urn Cannabinoid Scrn Not Detected (NotDetected)
[2018-06-26] MEDS: AZITHROMYCIN 500 MG TAB PO SCH (16:43)
[2018-06-26] MEDS: SYMBICORT 160-4.5 MCG INHALER INHALATION SCH (19:35)
[2018-06-26] MEDS: IPRATROPIUM-ALBUTEROL 3 ML NEB INHALATION SCH (19:35)
[2018-06-26 20:07] VITALS: BMI 29.3
[2018-06-26 20:25] LABS: Glucose,Whole Blood 177 mg/dL (75-99)
--- NOTE | 2018-06-26 20:31 | HP ---
HISTORY AND PHYSICAL DATE OF SERVICE: 06/26/2018. CHIEF COMPLAINT: Shortness of breath and suicidal ideation. HISTORY OF PRESENT ILLNESS: This 47-year-old gentleman with a past medical history of multiple medical problems including COPD, GERD, history of cardiac catheterization, being followed by Dr. Val Concepcion in the outpatient setting, presented with complaint of shortness of breath. The patient also had significant depression as well as suicidal ideation. The patient was admitted for further evaluation and treatment. There is no history of chest pain, palpitations, headache loss of consciousness or seizures. PAST MEDICAL: 1. COPD. 2. GERD. 3. Endarterectomy. 4. Cardiac catheterization. MEDICATIONS: 1. Effexor XR 35 mg. 2. Omeprazole 20 mg. 3. Symbicort 160/4.5 two puffs b.i.d. 4. Albuterol 2.5 q.i.d. p.r.n. ALLERGIES: None. FAMILY HISTORY: No history of any heart disease or strokes in the family. SOCIAL HISTORY: History of smoking, THC, alcohol, cocaine, marijuana. REVIEW OF SYSTEMS: ENT: No diminished vision or hearing. CARDIOVASCULAR: No angina. RESPIRATORY: As mentioned earlier. GI: No nausea or vomiting. : No dysuria. NERVOUS SYSTEM: No numbness or weakness. ALLERGY/IMMUNOLOGY: None. MUSCULOSKELETAL: As mentioned. HEMATOLOGY: Hematology. ENDOCRINE: No history of diabetes. CONSTITUTIONAL: As mentioned. RHEUMATOLOGY: Negative. PSYCHIATRIC: As mentioned. PHYSICAL EXAM: Alert and oriented x3. Pulse is 96, blood pressure 140/93, respirations 18, temperature normal, pulse ox 98% on and 97% on 2 L nasal cannula. HEENT: Conjunctivae normal. Oral mucosa moist. NECK: No jugular venous distention. No lymph node enlargement. CARDIOVASCULAR: S1 and S2 muffled. LUNGS: Breath sounds diminished in the bases. Bilateral scattered rhonchi and crackles. ABDOMEN: Soft, nontender. No mass palpable. LEGS: No edema, no swelling. NERVOUS SYSTEM: Higher functions as mentioned. Moves all 4 limbs. No focal motor or sensory deficits. LYMPHATICS: No lymph nodes palpable in the neck, axillae or groin. SKIN: No ulcers, no rashes or bleeding. JOINTS: No active deforming or arthropathy. LABS: CBC within normal limits. Potassium 5.2. Otherwise creatinine kinase 313. UA noted. Alcohol less than 10. Chest x-ray, no acute abnormality. ASSESSMENT: 1. Chronic obstructive pulmonary disease exacerbation, acute purulent tracheobronchitis. 2. Suicidal ideations, severe depression. 3. Gastroesophageal reflux disease. 5. History of tonsillectomy. 6. Anxiety, depression. 7. History of THC. 8. History of polysubstance abuse. RECOMMENDATIONS: Continue current management and symptomatic treatment. Recommend continue the bronchodilators and steroids. We will consult Psychiatry and Pulmonary. Guarded prognosis because of multiple complex medical issues. Further recommendations to follow. MMODL / IJN: [id number] / RYANNE
[2018-06-26] MEDS: methylPREDNISolone SOD SUCCI 125 MG/2 ML VIAL IV SCH (22:37)
[2018-06-26] MEDS: INSULIN ASPART 100 UNIT/ML 1 ML 10 ML VIAL SQ SCH (22:38)
[2018-06-26] MEDS: HEPARIN SODIUM,PORCINE 5,000 UNIT/ML 1 ML VIAL SQ SCH (22:38)
[2018-06-27 02:44] LABS: Hemoglobin A1C 5.3 % (4.0-6.0)
[2018-06-27] MEDS: methylPREDNISolone SOD SUCCI 125 MG/2 ML VIAL IV SCH ×4 (05:09→17:51)
[2018-06-27] MEDS: IPRATROPIUM-ALBUTEROL 3 ML NEB INHALATION SCH ×4 (07:10→18:52)
[2018-06-27] MEDS: SYMBICORT 160-4.5 MCG INHALER INHALATION SCH ×2 (07:10→18:51)
[2018-06-27 07:29] LABS: Basophils % (A) 0 %; Eosinophils % (A) 0 %; HCT 48.1 % (39.0-53.0); HGB 15.6 gm/dL (13.0-17.5); Lymphocytes # (A) 0.6 k/uL (1.0-4.8); Lymphocytes % (A) 5 %; MCH 31.2 pg (25.0-35.0); MCHC 32.3 g/dL (31.0-37.0); MCV 96.4 fL (80.0-100.0); Mean Platelet Volume 7.2; Monocytes # (A) 0.2 k/uL (0-1.0); Monocytes % (A) 1 %; Neutrophils # (A) 11.6 k/uL (1.3-7.7); Neutrophils % (A) 93 %; Platelet Count 234 k/uL (150-450); RBC 4.99 m/uL (4.30-5.90); RDW 12.8 % (11.5-15.5); WBC 12.5 k/uL (3.8-10.6)
[2018-06-27 07:37] LABS: Glucose,Whole Blood 129 mg/dL (75-99)
[2018-06-27] MEDS: INSULIN ASPART 100 UNIT/ML 1 ML 10 ML VIAL SQ SCH ×4 (07:38→21:21)
[2018-06-27 07:52] LABS: Anion Gap 7 mmol/L; Blood Urea Nitrogen 13 mg/dL (9-20); Calcium 9.5 mg/dL (8.4-10.2); Carbon Dioxide 25 mmol/L (22-30); Chloride 108 mmol/L (98-107); Glucose 126 mg/dL (74-99); Potassium 4.8 mmol/L (3.5-5.1); Sodium 140 mmol/L (137-145)
[2018-06-27] MEDS: PANTOPRAZOLE 40 MG TABLET PO SCH (07:59)
[2018-06-27] MEDS ORDERED: VENLAFAXINE HCL ER 75 MG CAP PO SCH (09:00)
[2018-06-27] MEDS ORDERED: NON-FORMULARY DRUG (Omeprazole [Omeprazole] 20 MG) PO SCH (09:00)
[2018-06-27] MEDS: HEPARIN SODIUM,PORCINE 5,000 UNIT/ML 1 ML VIAL SQ SCH ×2 (09:41→21:21)
[2018-06-27 11:44] LABS: Glucose,Whole Blood 157 mg/dL (75-99)
--- NOTE | 2018-06-27 12:07 | P.CN ---
Psychiatric Consult - . Consult date: 06/27/18 Consult:: 06/27/18 12:04 Chief Complaint : Suicidal ideation HPI : Mr. Riggs is yo single male with h/o depression admitted here secondary to COPD exacerbation. Reportedly he has been feeling depressed lately. It has been getting worse. He has been suicidal in past and admitted to our psych unit. He has been treated with antidepressants and he has been complaint on his medications. He denies any symptoms of mood swings, psychoses or OCD. PPH : Depression PMH : None Allergies : NKDA Substance Abuse : None MSE : Alert, awake, oriented in all spheres. Poor eye contact. Speech slow in soft tone, Mood dysphoric with congruent affect. Has suicidal ideation. No symptoms of psychoses. Insight and Judgment poor. A/P : Major Depressive Disorder, Recurrent without psychotic features Will resume and adjust medications accordingly. Transfer to psych once medically stable.
[2018-06-27] MEDS: ARIPiprazole 2 MG TAB PO SCH (13:29)
[2018-06-27] MEDS: AZITHROMYCIN 500 MG TAB PO SCH (13:29)
--- NOTE | 2018-06-27 14:13 | P.CNPUL ---
History of Present Illness Consult date: 06/27/18 Requesting physician: Pam Patel Reason for consult: dyspnea, COPD Chief complaint: Shortness of breath History of present illness: This is a pleasant 47-year-old gentleman who follows with Dr. Chicho Patel as his primary care physician. He has a history of chronic obstructive pulmonary disease, chronic and ongoing tobacco dependence, as esophageal reflux disease, anxiety/depression. He is on Symbicort and Ventolin in the outpatient setting. The patient presented to the emergency room yesterday with complaints of increasing shortness of breath, cough and congestion. He was also significantly depressed and suicidal. He is seen today in consultation on the regular medical floor. He is currently resting comfortably in bed. He is awake and alert in no acute distress. He states he is breathing easier today as compared to yesterday. Still not quite back to his baseline. He is maintaining O2 saturations in the low 90s on room air. He's been afebrile. Hemodynamically stable. Lung sounds with bilateral wheezing. White count 12.5. Hemoglobin 15.6. Creatinine 0.74. Urine drug screen was positive for tricyclic antidepressants and cocaine. He is currently on DuoNeb inhalations, Symbicort, IV Solu-Medrol, empiric antibiotics in the form of ceftriaxone and azithromycin. Chest x-ray revealed no acute cardiopulmonary process. Review of Systems 14 point review of system was conducted. All negative other than as mentioned in the HPI. Past Medical History Past Medical History: Chest Pain / Angina, Heart Failure, COPD, GERD/Reflux, Osteoarthritis (OA) Additional Past Medical History / Comment(s): Depression, heart catheterization History of Any Multi-Drug Resistant Organisms: None Reported Past Surgical History: Adenoidectomy, Heart Catheterization, Tonsillectomy Additional Past Surgical History / Comment(s): 2013 heart cath r/t sob Past Anesthesia/Blood Transfusion Reactions: No Reported Reaction Past Psychological History: Anxiety, Depression Smoking Status: Current every day smoker Past Alcohol Use History: Occasional Additional Past Alcohol Use History / Comment(s): Not daily Past Drug Use History: Cocaine, Marijuana - Past Family History Father History Unknown: Yes Medications and Allergies Home Medications Medication Instructions Recorded Confirmed Type Budesonide/Formoterol Fumarate 2 puff INHALATION RT-BID 09/19/17 06/26/18 History [Symbicort 160-4.5 Mcg Inhaler] Omeprazole 20 mg PO DAILY 12/08/17 06/26/18 History Venlafaxine HCl ER [Effexor XR] 75 mg PO DAILY #30 cap.er.24h 06/01/18 06/26/18 Rx Albuterol Inhaler [Ventolin Hfa 2 puff INHALATION RT-QID PRN 06/26/18 06/26/18 History Inhaler] Albuterol Nebulized [Ventolin 2.5 mg INHALATION RT-QID PRN 06/26/18 06/26/18 History Nebulized] Allergies Allergy/AdvReac Type Severity Reaction Status Date / Time No Known Allergies Allergy Verified 06/26/18 15:26 Physical Exam Vitals: Vital Signs Temp Pulse Pulse Pulse Pulse Resp BP 06/27/18 12:34 98 F 106 H 17 06/27/18 11:09 93 06/27/18 10:59 92 06/27/18 08:09 97.9 F 103 H 16 06/27/18 07:20 94 06/27/18 07:10 92 06/27/18 01:44 88 88 16 06/26/18 21:51 97.9 F 90 16 06/26/18 19:53 98 F 95 16 06/26/18 19:45 108 H 06/26/18 19:36 102 H 06/26/18 19:01 98.1 F 102 H 18 146/90 06/26/18 17:54 107 H 18 142/93 06/26/18 16:50 120 H 06/26/18 16:44 96 18 142/93 06/26/18 16:39 128 H 06/26/18 16:33 98.2 F 87 16 142/93 06/26/18 15:08 120 H 06/26/18 14:49 112 H 06/26/18 14:22 97.9 F 140 H 38 H 142/78 BP Pulse Ox 06/27/18 12:34 127/78 93 L 06/27/18 11:09 06/27/18 10:59 06/27/18 08:09 127/78 92 L 06/27/18 07:20 06/27/18 07:10 06/27/18 01:44 06/26/18 21:51 134/73 91 L 06/26/18 19:53 122/70 94 L 06/26/18 19:45 11/23/18 19:36 06/26/18 19:01 98 06/26/18 17:54 97 06/26/18 16:50 06/26/18 16:44 98 06/26/18 16:39 06/26/18 16:33 99 06/26/18 15:08 06/26/18 14:49 06/26/18 14:22 99 Intake and Output 06/26/18 06/27/18 06/27/18 22:59 06:59 14:59 Intake Total 50 Balance 50 Intake: Intake, IV Titration 50 Amount cefTRIAXone 1,000 mg In 50 Sodium Chloride 0.9% 50 ml @ 100 mls/hr IVPB Q24HR [facility] Rx#:[id number] Other: Voiding Method Toilet # Voids 1 1 Weight 106.594 kg 106.594 kg GENERAL EXAM: Alert, active, comfortable in no apparent distress. On room air. HEAD: Normocephalic. EYES: Normal reaction of pupils, equal size. NOSE: Clear with pink turbinates. THROAT: No erythema or exudates. NECK: No masses, no JVD. CHEST: No chest wall deformity. LUNGS: Equal air entry with bilateral end expiratory wheeze. CVS: S1 and S2 normal with no audible murmur, regular rhythm. ABDOMEN: No hepatosplenomegaly, normal bowel sounds, no guarding or rigidity. SPINE: No scoliosis or deformity SKIN: No rashes CENTRAL NERVOUS SYSTEM: No focal deficits, tone is normal in all 4 extremities. EXTREMITIES: There is no peripheral edema. No clubbing, no cyanosis. Peripheral pulses are intact. Results - Laboratory Findings CBC and BMP: 06/27/18 06:48 06/27/18 06:48 PT/INR, D-dimer PT 9.5 sec (9.0-12.0) 06/26/18 14:40 INR 1.0 (<1.2) 06/26/18 14:40 Abnormal lab findings: Abnormal Labs 06/26/18 06/26/18 06/26/18 14:40 14:40 14:40 WBC Neutrophils # Lymphocytes # 0.9 L Potassium 5.2 H Chloride 111 H Glucose POC Glucose (mg/dL) ALT 17 L Total Creatine Kinase 313 H CK-MB (CK-2) 3.7 H U Tricyclic Antidepress Urine Cocaine Screen 06/26/18 06/26/18 06/27/18 15:39 20:21 06:48 WBC 12.5 H Neutrophils # 11.6 H Lymphocytes # 0.6 L Potassium Chloride Glucose POC Glucose (mg/dL) 177 H ALT Total Creatine Kinase CK-MB (CK-2) U Tricyclic Antidepress Detected H Urine Cocaine Screen Detected H 06/27/18 06/27/18 06/27/18 06:48 07:34 11:44 WBC Neutrophils # Lymphocytes # Potassium Chloride 108 H Glucose 126 H POC Glucose (mg/dL) 129 H 157 H ALT Total Creatine Kinase CK-MB (CK-2) U Tricyclic Antidepress Urine Cocaine Screen - Diagnostic Findings Chest x-ray: image reviewed (No acute pulmonary process) Assessment and Plan Assessment: Impression: #1 Acute exacerbation of chronic obstructive pulmonary disease. #2 Chronic and ongoing tobacco dependence. #3 History of severe depression with recent suicidal ideations. #4 Cocaine use with positive drug screen. #5 History of marijuana use. #6 Recent admission for suicidal ideations. #7 Gastroesophageal reflux disease. Plan: The patient was seen and evaluated by Dr. Barrett. Chest x-ray and labs were reviewed. The patient does have a mild exacerbation of his COPD. Continue with IV Solu-Medrol, bronchodilators. He is educated regarding the importance of complete smoking cessation. NicoDerm patch will be offered. The patient has been seen by psychiatry and will be admitted to the psychiatric unit once medically cleared. In the interim a sitter remains at the bedside 24/02. We'll continue to follow and make further recommendations based on his clinical status. I, the cosigning physician, performed a history & physical examination of the patient. Lungs sounds with bilateral end expiratory wheeze. Maintaining good O2 saturations in the 90s on room air. I discussed the assessment and plan of care with my nurse practitioner, Huyen Medrano. I attest to the above consultation as dictated by her. Time with Patient: Greater than 30
[2018-06-27 17:21] LABS: Glucose,Whole Blood 183 mg/dL (75-99)
[2018-06-27] MEDS: methylPREDNISolone SOD SUCCI 40 MG/ML 1 ML VIAL IV SCH (17:50)
--- NOTE | 2018-06-27 18:17 | PN ---
PROGRESS NOTE DATE OF SERVICE: 06/27/2018 This 47-year-old gentleman was admitted with COPD acute exacerbation as well as suicidal ideation is being closely monitored. No chest pain or palpitation. No fever. PHYSICAL EXAMINATION: On exam, alert and oriented x3. Pulse is 106, blood pressure 127/78, respirations 17, temperature 98 degrees, pulse ox 93% on room air. HEENT: Conjunctivae normal. Oral mucosa moist. Neck is no jugular venous distention. No carotid bruit. No lymph node enlargement. CARDIOVASCULAR: S1 and S2 muffled. RESPIRATORY: Breath sounds diminished at the bases. A few scattered rhonchi and crackles. ABDOMEN: Soft, nontender. LEGS: No edema, no swelling. NERVOUS SYSTEM: No focal deficits. LABS: WBC 12.5, hemoglobin 15.6. Drug screen is positive for cocaine. ASSESSMENT: 1. Chronic obstructive pulmonary disease acute exacerbation with acute purulent tracheobronchitis. 2. History of suicidal ideations, severe depression. 3. Gastroesophageal reflux disease. 4. Positive cocaine. 5. History of tonsillectomy. 6. Depression. 7. History of THC. 8. History of polysubstance abuse. RECOMMENDATIONS AND DISCUSSION: Recommend to continue current medications. Continue with monitoring and symptomatic treatment. Otherwise at this time I would cut down the dose of steroids and closely monitor with Dr. Barrett and await psych evaluation and continue to monitor. Further recommendations to follow. See orders for details. MMODL / IJN: [id number] /
[2018-06-27 20:18] LABS: Glucose,Whole Blood 165 mg/dL (75-99)
[2018-06-28] MEDS: methylPREDNISolone SOD SUCCI 40 MG/ML 1 ML VIAL IV SCH ×3 (00:33→17:59)
[2018-06-28 07:33] LABS: Glucose,Whole Blood 128 mg/dL (75-99)
[2018-06-28] MEDS: INSULIN ASPART 100 UNIT/ML 1 ML 10 ML VIAL SQ SCH ×4 (07:35→21:37)
[2018-06-28 07:46] LABS: Anion Gap 8 mmol/L; Blood Urea Nitrogen 17 mg/dL (9-20); Calcium 9.4 mg/dL (8.4-10.2); Carbon Dioxide 26 mmol/L (22-30); Chloride 108 mmol/L (98-107); Glucose 126 mg/dL (74-99); Potassium 4.4 mmol/L (3.5-5.1); Sodium 142 mmol/L (137-145)
[2018-06-28] MEDS: ARIPiprazole 2 MG TAB PO SCH (07:52)
[2018-06-28] MEDS: HEPARIN SODIUM,PORCINE 5,000 UNIT/ML 1 ML VIAL SQ SCH ×2 (07:52→20:07)
[2018-06-28] MEDS: AZITHROMYCIN 500 MG TAB PO SCH (07:52)
[2018-06-28] MEDS: VENLAFAXINE HCL ER 150 MG CAP PO SCH (07:52)
[2018-06-28] MEDS: PANTOPRAZOLE 40 MG TABLET PO SCH (07:52)
[2018-06-28] MEDS: ACETAMINOPHEN TAB 500 MG TAB PO PRN ×2 (07:54→20:07)
[2018-06-28 07:58] LABS: Basophils % (A) 0 %; Eosinophils % (A) 0 %; HCT 44.1 % (39.0-53.0); HGB 14.9 gm/dL (13.0-17.5); Lymphocytes # (A) 0.8 k/uL (1.0-4.8); Lymphocytes % (A) 4 %; MCH 32.2 pg (25.0-35.0); MCHC 33.9 g/dL (31.0-37.0); MCV 95.1 fL (80.0-100.0); Mean Platelet Volume 7.5; Monocytes # (A) 0.4 k/uL (0-1.0); Monocytes % (A) 2 %; Neutrophils # (A) 16.9 k/uL (1.3-7.7); Neutrophils % (A) 93 %; Platelet Count 245 k/uL (150-450); RBC 4.64 m/uL (4.30-5.90); RDW 12.8 % (11.5-15.5); WBC 18.2 k/uL (3.8-10.6)
[2018-06-28] MEDS: SYMBICORT 160-4.5 MCG INHALER INHALATION SCH ×2 (08:31→19:32)
[2018-06-28] MEDS: IPRATROPIUM-ALBUTEROL 3 ML NEB INHALATION SCH ×4 (08:31→19:32)
[2018-06-28 11:34] LABS: Glucose,Whole Blood 130 mg/dL (75-99)
--- NOTE | 2018-06-28 14:48 | P.PN ---
Subjective Progress Note Date: 06/28/18 Principal diagnosis: Acute exacerbation of COPD This is a pleasant 47-year-old gentleman who follows with Dr. Chicho Patel as his primary care physician. He has a history of chronic obstructive pulmonary disease, chronic and ongoing tobacco dependence, as esophageal reflux disease, anxiety/depression. He is on Symbicort and Ventolin in the outpatient setting. The patient presented to the emergency room yesterday with complaints of increasing shortness of breath, cough and congestion. He was also significantly depressed and suicidal. He is seen today in consultation on the regular medical floor. He is currently resting comfortably in bed. He is awake and alert in no acute distress. He states he is breathing easier today as compared to yesterday. Still not quite back to his baseline. He is maintaining O2 saturations in the low 90s on room air. He's been afebrile. Hemodynamically stable. Lung sounds with bilateral wheezing. White count 12.5. Hemoglobin 15.6. Creatinine 0.74. Urine drug screen was positive for tricyclic antidepressants and cocaine. He is currently on DuoNeb inhalations, Symbicort, IV Solu-Medrol, empiric antibiotics in the form of ceftriaxone and azithromycin. Chest x-ray revealed no acute cardiopulmonary process. Patient was reevaluated today on 06/28/2018, feeling a bit better, continues to cough and wheeze. Patient was seen by psychiatry, and they will take him to the psychiatric floor once he is cleared medically. I believe another day of bronchodilators, IV Solu-Medrol, antibiotics, and steroids will definitely improve the patient enough to be cleared to transfer to psychiatry. Patient denies any chest pain, no fever, no chills, no hemoptysis, denies presently any active suicidal or homicidal thoughts. Objective - Vital Signs Vital signs: Vital Signs Temp 97.9 F 06/28/18 12:10 Pulse 92 06/28/18 12:14 Resp 17 06/28/18 12:10 BP 125/70 06/28/18 12:10 Pulse Ox 93 L 06/28/18 12:10 Intake & Output 06/27/18 06/28/18 06/28/18 18:59 06:59 18:59 Intake Total 50 50 Balance 50 50 Intake: Intake, IV Titration 50 50 Amount cefTRIAXone 1,000 mg In 50 50 Sodium Chloride 0.9% 50 ml @ 100 mls/hr IVPB Q24HR [facility] Rx#:[id number] Other: Voiding Method Toilet Toilet # Voids 2 - Exam GENERAL EXAM: Alert, active, comfortable in no apparent distress. On room air. HEAD: Normocephalic. EYES: Normal reaction of pupils, equal size. NOSE: Clear with pink turbinates. THROAT: No erythema or exudates. NECK: No masses, no JVD. CHEST: No chest wall deformity. LUNGS: Symmetrical chest expansion, no chest wall tenderness, diffuse rhonchi and wheezes noted bilaterally. CVS: S1 and S2 normal with no audible murmur, regular rhythm. ABDOMEN: No hepatosplenomegaly, normal bowel sounds, no guarding or rigidity. SPINE: No scoliosis or deformity SKIN: No rashes CENTRAL NERVOUS SYSTEM: No focal deficits, tone is normal in all 4 extremities. EXTREMITIES: There is no peripheral edema. No clubbing, no cyanosis. Peripheral pulses are intact. - Labs CBC & Chem 7: 06/28/18 07:16 06/28/18 07:16 Labs: Abnormal Lab Results - Last 24 Hours (Table) 06/27/18 06/27/18 06/28/18 Range/Units 17:20 20:17 07:16 WBC 18.2 H (3.8-10.6) k/uL Neutrophils # 16.9 H (1.3-7.7) k/uL Lymphocytes # 0.8 L (1.0-4.8) k/uL Chloride (98-107) mmol/L Glucose (74-99) mg/dL POC Glucose (mg/dL) 183 H 165 H (75-99) mg/dL 06/28/18 06/28/18 06/28/18 Range/Units 07:16 07:31 11:32 WBC (3.8-10.6) k/uL Neutrophils # (1.3-7.7) k/uL Lymphocytes # (1.0-4.8) k/uL Chloride 108 H (98-107) mmol/L Glucose 126 H (74-99) mg/dL POC Glucose (mg/dL) 128 H 130 H (75-99) mg/dL Assessment and Plan Assessment: #1 Acute exacerbation of chronic obstructive pulmonary disease. #2 Chronic and ongoing tobacco dependence. #3 History of severe depression with recent suicidal ideations. #4 Cocaine use with positive drug screen. #5 History of marijuana use. #6 Recent admission for suicidal ideations. #7 Gastroesophageal reflux disease. Recommendation: Continue present course of bronchodilators, steroids, antibiotics, we'll likely clear the patient to be transferred to psychiatry tomorrow. We'll continue to follow in the meantime. Patient is improving but not improved enough to be cleared at this point to go to psychiatry. Continue suicidal precautions, and continue having a sitter at bedside. Time with Patient: Less than 30
[2018-06-28 17:18] LABS: Glucose,Whole Blood 116 mg/dL (75-99)
[2018-06-28] MEDS ORDERED: MELATONIN 5 MG TABLET PO PRN (18:32)
[2018-06-28 20:29] LABS: Glucose,Whole Blood 230 mg/dL (75-99)
--- NOTE | 2018-06-28 21:09 | PN ---
PROGRESS NOTE DATE OF SERVICE: 06/28/2018 This 47-year-old gentleman who was admitted with COPD exacerbation, acute purulent tracheobronchitis, also had suicidal ideation, Dr. Barrett is following the patient closely. Patient on bronchodilators and steroids. PAST MEDICAL HISTORY: Reviewed. REVIEW OF SYSTEMS: Cardiovascular: No angina or palpitations. Respiration: As mentioned earlier. GASTROINTESTINAL: As mentioned earlier. : As mentioned earlier. CENTRAL NERVOUS SYSTEM: No focal deficits. CURRENT MEDICATIONS ARE: Reviewed and include: 1. Tylenol 500 mg q.6h p.r.n. 2. Ventolin q.2h p.r.n. 3. DuoNeb q.i.d. and p.r.n. 4. Abilify 2 mg daily. 5. Zithromax 500 mg p.r.n. 6. Symbicort 160/4.5 two puffs b.i.d. 7. Rocephin 1 g daily. 8. Heparin. 9. NovoLog. 10.Solu-Medrol 40 IV q.8h. 11.Protonix . PHYSICAL EXAMINATION: Alert, oriented times three. Pulse 90, blood pressure is 127/75, respiratory rate 17, temperature 97.2, pulse ox 93% on room air. HEENT: Conjunctivae normal. Oral mucosa moist. Neck is no jugular venous distention. No carotid bruit. No lymph node enlargement. Cardiovascular: S1, S2 muffled. Respiratory: Breath sounds diminished in the bases. Bilateral scattered rhonchi and crackles. ABDOMEN: Soft, nontender. No mass palpable. Legs are no edema. Nervous system: No focal deficits. LABS: WBC 18.2, sodium 140, potassium 4.4, Accu-Cheks noted. ASSESSMENT: 1. Chronic obstructive pulmonary disease exacerbation with acute purulent tracheobronchitis. 2. History of suicidal ideation and severe depression. 3. Gastroesophageal reflux disease. 4. Positive cocaine. 5. History of tonsillectomy. 6. Depression. 7. History of THC. 8. History of polysubstance abuse. 9. Increased WBC. 10.Increased random blood sugar. RECOMMENDATIONS AND DISCUSSION: I recommend to continue current management. Current current medications, symptomatic treatment, continue the bronchodilators. I would also cut down steroids 40 mg IV q.8 and otherwise psychiatric input also has been sought and I would continue with antibiotics. Once the patient is stabilized, inpatient psych consultation and rehab will be considered. Otherwise, continue to monitor. Prognosis guarded. MMSIDL / IJN: [id number] / MTDD
[2018-06-28] MEDS ORDERED: MELATONIN 1 MG TAB PO PRN (22:37)
[2018-06-29] MEDS: methylPREDNISolone SOD SUCCI 40 MG/ML 1 ML VIAL IV SCH ×2 (01:12→07:53)
[2018-06-29 06:51] LABS: Glucose,Whole Blood 122 mg/dL (75-99)
[2018-06-29] MEDS: IPRATROPIUM-ALBUTEROL 3 ML NEB INHALATION SCH ×2 (06:57→10:40)
[2018-06-29] MEDS: SYMBICORT 160-4.5 MCG INHALER INHALATION SCH (06:57)
[2018-06-29] MEDS: INSULIN ASPART 100 UNIT/ML 1 ML 10 ML VIAL SQ SCH ×2 (07:05→11:27)
[2018-06-29 07:40] LABS: Anion Gap 6 mmol/L; Blood Urea Nitrogen 16 mg/dL (9-20); Calcium 8.8 mg/dL (8.4-10.2); Carbon Dioxide 27 mmol/L (22-30); Chloride 109 mmol/L (98-107); Glucose 120 mg/dL (74-99); Potassium 4.6 mmol/L (3.5-5.1); Sodium 142 mmol/L (137-145)
[2018-06-29] MEDS: AZITHROMYCIN 500 MG TAB PO SCH (07:52)
[2018-06-29] MEDS: VENLAFAXINE HCL ER 150 MG CAP PO SCH (07:52)
[2018-06-29] MEDS: HEPARIN SODIUM,PORCINE 5,000 UNIT/ML 1 ML VIAL SQ SCH (07:53)
[2018-06-29] MEDS: PANTOPRAZOLE 40 MG TABLET PO SCH (07:53)
[2018-06-29] MEDS: ARIPiprazole 2 MG TAB PO SCH (07:53)
[2018-06-29 07:55] LABS: Basophils % (A) 0 %; Eosinophils % (A) 0 %; HCT 42.6 % (39.0-53.0); HGB 13.6 gm/dL (13.0-17.5); Lymphocytes % (A) 7 %; MCH 30.9 pg (25.0-35.0); MCV 96.8 fL (80.0-100.0); Mean Platelet Volume 7.4; Monocytes # (A) 0.4 k/uL (0-1.0); Monocytes % (A) 3 %; Neutrophils # (A) 12.1 k/uL (1.3-7.7); Neutrophils % (A) 89 %; Platelet Count 231 k/uL (150-450); RDW 12.8 % (11.5-15.5); WBC 13.6 k/uL (3.8-10.6)
[2018-06-29 11:17] LABS: Glucose,Whole Blood 109 mg/dL (75-99)
[2018-06-29 12:36] VITALS: BP 144/70; PULSE 76; RESP 20; TEMP 98.1
--- NOTE | 2018-06-29 16:29 | P.PN ---
Subjective Progress Note Date: 06/29/18 Principal diagnosis: Acute exacerbation of chronic obstructive pulmonary disease. This is a pleasant 47-year-old gentleman who follows with Dr. Chicho Patel as his primary care physician. He has a history of chronic obstructive pulmonary disease, chronic and ongoing tobacco dependence, as esophageal reflux disease, anxiety/depression. He is on Symbicort and Ventolin in the outpatient setting. The patient presented to the emergency room yesterday with complaints of increasing shortness of breath, cough and congestion. He was also significantly depressed and suicidal. He is seen today in consultation on the regular medical floor. He is currently resting comfortably in bed. He is awake and alert in no acute distress. He states he is breathing easier today as compared to yesterday. Still not quite back to his baseline. He is maintaining O2 saturations in the low 90s on room air. He's been afebrile. Hemodynamically stable. Lung sounds with bilateral wheezing. White count 12.5. Hemoglobin 15.6. Creatinine 0.74. Urine drug screen was positive for tricyclic antidepressants and cocaine. He is currently on DuoNeb inhalations, Symbicort, IV Solu-Medrol, empiric antibiotics in the form of ceftriaxone and azithromycin. Chest x-ray revealed no acute cardiopulmonary process. Patient was reevaluated today on 06/28/2018, feeling a bit better, continues to cough and wheeze. Patient was seen by psychiatry, and they will take him to the psychiatric floor once he is cleared medically. I believe another day of bronchodilators, IV Solu-Medrol, antibiotics, and steroids will definitely improve the patient enough to be cleared to transfer to psychiatry. Patient denies any chest pain, no fever, no chills, no hemoptysis, denies presently any active suicidal or homicidal thoughts. Patient is seen again today in 06/29/2018 in follow-up on the regular medical floor. He is awake and alert in no acute distress. He states his breathing is improved today as compared to yesterday. Still with some end expiratory wheeze. Loose nonproductive cough. Maintaining good O2 saturations in the 90s on room air. Been afebrile. Hemodynamically stable. White count 13.6. Hemoglobin 13.6. Creatinine 0.76. He had been treated with bronchodilators, Symbicort, steroids and ceftriaxone. Objective - Vital Signs Vital signs: Vital Signs Temp 98.1 F 06/29/18 12:35 Pulse 76 06/29/18 12:35 Resp 20 06/29/18 12:35 BP 144/70 06/29/18 12:35 Pulse Ox 95 06/29/18 12:35 Intake & Output 06/28/18 06/29/18 06/29/18 18:59 06:59 18:59 Intake Total 50 350 Balance 50 350 Intake: Intake, IV Titration 50 Amount cefTRIAXone 1,000 mg In 50 Sodium Chloride 0.9% 50 ml @ 100 mls/hr IVPB Q24HR [facility] Rx#:[id number] Oral 350 Other: Voiding Method Toilet Toilet - Exam GENERAL EXAM: Alert, active, comfortable in no apparent distress. HEAD: Normocephalic. EYES: Normal reaction of pupils, equal size. NOSE: Clear with pink turbinates. THROAT: No erythema or exudates. NECK: No masses, no JVD. CHEST: No chest wall deformity. LUNGS: Equal air entry with intent expiratory wheeze, scattered rhonchi, diminished. CVS: S1 and S2 normal with no audible murmur, regular rhythm. ABDOMEN: No hepatosplenomegaly, normal bowel sounds, no guarding or rigidity. SPINE: No scoliosis or deformity SKIN: No rashes CENTRAL NERVOUS SYSTEM: No focal deficits, tone is normal in all 4 extremities. EXTREMITIES: There is no peripheral edema. No clubbing, no cyanosis. Peripheral pulses are intact. - Labs CBC & Chem 7: 06/29/18 06:37 06/29/18 06:37 Labs: Abnormal Lab Results - Last 24 Hours (Table) 06/28/18 06/28/18 06/29/18 Range/Units 17:17 20:28 06:37 WBC 13.6 H (3.8-10.6) k/uL Neutrophils # 12.1 H (1.3-7.7) k/uL Chloride (98-107) mmol/L Glucose (74-99) mg/dL POC Glucose (mg/dL) 116 H 230 H (75-99) mg/dL 06/29/18 06/29/18 06/29/18 Range/Units 06:37 06:50 11:12 WBC (3.8-10.6) k/uL Neutrophils # (1.3-7.7) k/uL Chloride 109 H (98-107) mmol/L Glucose 120 H (74-99) mg/dL POC Glucose (mg/dL) 122 H 109 H (75-99) mg/dL Assessment and Plan Assessment: Impression: #1 Acute exacerbation of chronic obstructive pulmonary disease. #2 Chronic and ongoing tobacco dependence. #3 History of severe depression with recent suicidal ideations. #4 Cocaine use with positive drug screen. #5 History of marijuana use. #6 Recent admission for suicidal ideations. #7 Gastroesophageal reflux disease. Plan: The patient was seen and evaluated by Dr. Mares. He shouldn't is stable from the pulmonary standpoint. He did complete a course of antibiotics. Complete a prednisone taper. He is educated regarding the importance of complete smoking cessation. NicoDerm patch will be offered. Transferred to the psychiatric unit once medically cleared. In the interim a sitter remains at the bedside . I, the cosigning physician, performed a history & physical examination of the patient. Lungs sounds with bilateral end expiratory wheeze. Maintaining good O2 saturations in the 90s on room air. I discussed the assessment and plan of care with my nurse practitioner, Huyen Medrano. I attest to the above consultation as dictated by her.
--- NOTE | 2018-06-29 18:19 | DS ---
DISCHARGE SUMMARY DATE OF SERVICE: 06/29/2018 FINAL DIAGNOSES: 1. Chronic obstructive pulmonary disease, acute exacerbation, with acute purulent tracheobronchitis. 2. History of suicidal ideation and severe depression. 3. Gastroesophageal reflux disease. 4. Positive cocaine. 5. History of tonsillectomy. 6. Depression. 7. History of tetrahydrocannabinol. 8. History of polysubstance abuse. 9. Increased white count. 10.Increased random blood sugar. DISCHARGE DISPOSITION: The patient will be discharged in stable condition with guarded prognosis. Patient will be transferred to Inpatient Psych. HISTORY OF PRESENT ILLNESS: This 47-year-old gentleman with a past medical history of multiple medical problems was admitted with COPD, acute exacerbation. Patient improved significantly. On exam, vital signs are stable. CARDIOVASCULAR SYSTEM: S1, S2 muffled. RESPIRATORY SYSTEM: A few scattered rhonchi and crackles. ABDOMEN: Soft. NERVOUS SYSTEM: ntd DISCHARGE ADVICE AND MEDICATIONS: 1. Diet is cardiac. 2. Activity limited until followup. 3. Follow up with Dr. Val Concepcion after discharge from Inpatient Psych. 4. Symbicort 150/4.5 two puffs b.i.d. 5. Omeprazole 20 mg daily. 6. Tylenol p.r.n. 7. Albuterol inhaler p.r.n. 8. Albuterol nebulizer q.i.d. and p.r.n. 9. Abilify 2 mg p.o. daily. 10.Zithromax 500 mg p.o. daily for 5 days. 11.Ceftin 500 mg p.o. b.i.d. for 5 days. 12.NovoLog Accu-Cheks before meals and at bedtime; scale. 13.Melatonin 5 mg at bedtime. 14.Prednisone 40 mg daily for 3 days; 30 mg daily for 3 days; 20 mg daily for 3 days; 10 mg for 3 days. 15.Effexor XR 75 mg p.o. daily. MMODL / IJN: [id number] / MTDD
[2018-06-30] MEDS ORDERED: predniSONE 50 MG TAB PO SCH (09:00)
== END 2018-06-29 15:10 | DRG 191 ==
LOC: EC 14:20 → 3NMEDONC 16:33 → OBSVTOIN 06-27 14:29
PROVIDERS: ADMIT Hospitalist; ATTEND Hospitalist
DX: J44.0 Chronic obstructive pulmonary disease with (acute) lower respiratory infection (principal); F33.2 Major depressive disorder, recurrent severe without psychotic features; R45.851 Suicidal ideations; J20.9 Acute bronchitis, unspecified; F17.210 Nicotine dependence, cigarettes, uncomplicated; J44.1 Chronic obstructive pulmonary disease with (acute) exacerbation; F41.9 Anxiety disorder, unspecified; I50.9 Heart failure, unspecified; K21.9 Gastro-esophageal reflux disease without esophagitis; Z79.51 Long term (current) use of inhaled steroids; Z79.899 Other long term (current) drug therapy; F19.10 Other psychoactive substance abuse, uncomplicated; R73.9 Hyperglycemia, unspecified; M19.90 Unspecified osteoarthritis, unspecified site
CPT/HCPCS: 36415; 71046; 80048; 80053; 80306; 80320; 82550; 82553; 83036; 83735; 83880; 84484; 85025; 85610; 85730; 93005; 94640; 94760; 96361; 96374; 99285

== ENCOUNTER 2018-09-26 18:14 | Emergency (ER) | payer OTHER ==
[2018-09-26 18:26] VITALS: TEMP 98.4
[2018-09-26] MEDS ORDERED: KETOROLAC 30 MG/ML 1 ML VIAL IM STA (18:40)
--- NOTE | 2018-09-26 18:49 | ED ---
Fall HPI - General Chief Complaint: Fall Stated Complaint: Fall-back and knee injury Time Seen by Provider: 09/26/18 18:33 Source: patient Mode of arrival: ambulatory - History of Present Illness Initial Comments: 47-year-old male patient presents to the emergency department today for evaluation after experiencing a slip and fall injury yesterday. Patient states he is coming down the stairs when his 1 foot hit the ice and he fell twisting his knee and injuring his back. Patient denies hitting his head or losing consciousness. States that all day today has been having increased pain to the right low back. Denies any radiation of the pain down his legs. Denies any numbness or tingling to the lower extremities. Denies any saddle anesthesia or loss of bowel or bladder control. Patient is also reporting pain to the right knee. States it is mostly in the posterior knee. States he is able to ambulate but it does cause pain when doing so. Denies any history of back or knee injury. States he has been taking Motrin 800 mg for pain control. He denies any other injuries. Patient denies any headache, neck pain, chest pain, shortness of breath, dizziness, weakness, abdominal pain, nausea, vomiting, or difficulties with bowel movements or urination. - Related Data Previous Rx's Medication Instructions Recorded Albuterol Inhaler [Ventolin Hfa 2 puff INHALATION RT-QID 30 Days 07/02/18 Inhaler] #1 puff Azithromycin [Zithromax] 500 mg PO DAILY #5 tab 07/02/18 Budesonide-Formot 160-4.5 Mcg 2 puff INHALATION RT-BID 30 Days 07/02/18 [Symbicort 160-4.5 Mcg Inhaler] #1 puff Naltrexone HCl [Revia] 50 mg PO 2100 30 Days #30 tab 07/02/18 Omeprazole 20 mg PO 2100 30 Days #30 07/02/18 capsule. Paliperidone [Invega] 6 mg PO 2100 30 Days #30 tab.er.24 07/02/18 Pramipexole [Mirapex] 0.5 mg PO HS 30 Days #30 tab 07/02/18 Varenicline [Chantix Starter Pack] 0.5 mg PO 2100 30 Days #30 tab 07/02/18 Venlafaxine HCl ER [Effexor XR] 150 mg PO 2100 30 Days #30 11/29/18 cap.er.24h predniSONE See Taper PO DAILY 30 Days #30 tab 07/02/18 Cyclobenzaprine [Flexeril] 10 mg PO TID #15 tab 09/26/18 Allergies Allergy/AdvReac Type Severity Reaction Status Date / Time No Known Allergies Allergy Verified 09/26/18 18:26 Review of Systems ROS Statement: Those systems with pertinent positive or pertinent negative responses have been documented in the HPI. ROS Other: All systems not noted in ROS Statement are negative. Past Medical History Past Medical History: Chest Pain / Angina, Heart Failure, COPD, GERD/Reflux, Osteoarthritis (OA) Additional Past Medical History / Comment(s): Depression, heart catheterization History of Any Multi-Drug Resistant Organisms: None Reported Past Surgical History: Adenoidectomy, Heart Catheterization, Tonsillectomy Additional Past Surgical History / Comment(s): 2013 heart cath r/t sob Past Anesthesia/Blood Transfusion Reactions: No Reported Reaction Past Psychological History: Anxiety, Depression Smoking Status: Current every day smoker Past Alcohol Use History: Occasional Past Drug Use History: None Reported - Past Family History Father History Unknown: Yes General Exam Limitations: no limitations General appearance: alert, in no apparent distress, other (Well-developed, well- nourished adult male patient in no acute distress. Vital signs upon presentation are temperature 98.4F, pulse 95, respirations 18, blood pressure 110/74, pulse ox 99% on room air.) Eye exam: Present: normal appearance, PERRL, EOMI. Absent: scleral icterus, conjunctival injection, periorbital swelling Respiratory exam: Present: normal lung sounds bilaterally. Absent: respiratory distress, wheezes, rales, rhonchi, stridor Cardiovascular Exam: Present: regular rate, normal rhythm, normal heart sounds. Absent: systolic murmur, diastolic murmur, rubs, gallop, clicks GI/Abdominal exam: Present: soft, normal bowel sounds. Absent: distended, tenderness, guarding, rebound, rigid Extremities exam: Present: normal inspection, full ROM, normal capillary refill , other (Increased pain, but no laxity with valgus maneuver. No pain or laxity with varus maneuver. Skin to the leg is pink, warm, dry. Cap refills less than 3 seconds. Pedal and posttibial pulses 2+ and equal bilaterally.). Absent : tenderness, pedal edema, joint swelling, calf tenderness Back exam: Present: normal inspection, paraspinal tenderness (Right paraspinal lumbar tenderness). Absent: vertebral tenderness Neurological exam: Present: alert, oriented X3, CN II-XII intact Psychiatric exam: Present: normal affect, normal mood Skin exam: Present: warm, dry, intact, normal color. Absent: rash Course Vital Signs 09/26/18 18:24 Temperature 98.4 F Pulse Rate 95 Respiratory 18 Rate Blood Pressure 110/74 O2 Sat by Pulse 99 Oximetry Medical Decision Making - Medical Decision Making 47-year-old male patient presents to the emergency department today for evaluation of low back and right knee pain after soap and fall accident yesterday. Physical examination revealed no surface trauma to Dr. omid. Patient will range of motion of both the back and the knee. Her vascular status is intact. No concerning symptoms for cauda equina. X-rays of lumbosacral, pelvis, and right knee were obtained and showed no acute abnormalities. Patient symptoms are consistent with low back strain and right knee sprain. He is educated regarding rest, ice, elevation. He is instructed to perform gentle range of motion exercises to the back. He is instructed to take anti-inflammatory medications as directed. He is given a prescription for Flexeril. He is instructed to follow-up with his primary care physician for recheck in 1-2 days. Return parameters discussed in detail. He verbalizes understanding and agrees with this plan. - Radiology Data Radiology results: report reviewed, image reviewed Single AP view of the pelvis was obtained. Report was reviewed in its entirety. Impression by Dr. Beckett shows no acute fracture dislocation the pelvis per 4 view of the lumbosacral spine was obtained. Report was reviewed in its entirety. Impression by Dr. Beckett shows no acute fracture dislocation of the lumbar spine 3 views of the right knee are obtained. Report reviewed in its entirety. Impression by Dr. Beckett shows no acute fractures or dislocations. Disposition Clinical Impression: Strain of right knee, Low back strain Disposition: HOME SELF-CARE Condition: Good Instructions (If sedation given, give patient instructions): Knee Sprain (ED), Low Back Strain (ED), Lower Back Exercises (ED) Additional Instructions: Continue taking anti-inflammatory medications as directed. Add and muscle relaxer as needed. Apply ice to the painful areas and switch to warm moist heat. Follow-up with the primary care physician for recheck in 1-2 days. Return to the emergency department immediately for any new, worsening, or concerning symptoms. Prescriptions: Cyclobenzaprine [Flexeril] 10 mg PO TID #15 tab Is patient prescribed a controlled substance at d/c from ED?: No Referrals: Val Concepcion MD [Primary Care Provider] - 1-2 days Time of Disposition: 19:41
--- NOTE | 2018-09-26 19:31 | XR ---
EXAMINATION TYPE: XR knee complete RT DATE OF EXAM: 09/26/2018 CLINICAL HISTORY: Knee pain, fall TECHNIQUE: Three views of the right knee are obtained. COMPARISON: None. FINDINGS: There is no acute fracture/dislocation evident in right knee. The tri-compartment degener ative changes are evident The overlying soft tissue appears unremarkable. IMPRESSION: No acute fracture or dislocation.
--- NOTE | 2018-09-26 19:33 | XR ---
EXAMINATION TYPE: XR lumbosacral spine min 4V DATE OF EXAM: 09/26/2018 CLINICAL HISTORY: Back pain TECHNIQUE: Frontal, lateral, and oblique images of the lumbar spine are obtained. COMPARISON: None. FINDINGS: There are 5 lumbar type vertebral bodies identified. The lumbar spine shows satisfactory alignment without evidence of acute fracture or dislocation. Vertebral body heights and disk space he ights are within normal limits. The oblique images appear within normal limits. The overlying soft tissue appears unremarkable. Bridging osteophytes are seen at multiple levels. 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 Endplate sclerosis is seen at L5-S1. IMPRESSION: No acute fracture or dislocation of the lumbar spine.
--- NOTE | 2018-09-26 19:34 | XR ---
EXAMINATION TYPE: XR pelvis AP view DATE OF EXAM: 09/26/2018 CLINICAL HISTORY: Pain, fall TECHNIQUE: A single AP view of the pelvis is obtained. COMPARISON: None. FINDINGS: There is no acute fracture/dislocation evident in the pelvis. The hip and sacroiliac join ts appear symmetric and unremarkable. The overlying soft tissue appears unremarkable. Fluid was pres ent within the low pelvis. Sclerotic changes are seen of the symphysis pubis. IMPRESSION: There is no acute fracture or dislocation in the pelvis.
[2018-09-26 20:02] VITALS: BP 121/85; PULSE 70; RESP 16
== END 2018-09-26 19:56 | disposition home or self-care (01) ==
LOC: EC 18:14
DX: S39.012A Strain of muscle, fascia and tendon of lower back, initial encounter (principal); S86.811A Strain of other muscle(s) and tendon(s) at lower leg level, right leg, initial encounter; I50.9 Heart failure, unspecified; F17.200 Nicotine dependence, unspecified, uncomplicated; Z95.818 Presence of other cardiac implants and grafts; W01.0XXA Fall on same level from slipping, tripping and stumbling without subsequent striking against object, initial encounter
CPT/HCPCS: 72110; 72170; 73562; 99283; 96372; J1885

== ENCOUNTER 2018-10-07 18:28 | Observation (INO) | payer OTHER ==
[2018-10-07] MEDS ORDERED: ACETAMINOPHEN TAB 500 MG TAB PO STA (18:48)
[2018-10-07] MEDS ORDERED: IPRATROPIUM-ALBUTEROL 3 ML NEB INHALATION STA (18:49)
--- NOTE | 2018-10-07 18:51 | ED ---
General Adult HPI - General Chief complaint: Shortness of Breath Stated complaint: URSULA, COPD Time Seen by Provider: 10/07/18 18:38 Source: patient, RN notes reviewed Mode of arrival: ambulatory Limitations: no limitations - History of Present Illness Initial comments: Patient is a pleasant 47-year-old male presenting to the emergency Department with cough and difficulty breathing. Patient has had some symptoms for the past 2-3 days. Patient does have some chills. Cough is been nonproductive. No rhinorrhea or sore throat. No chest pain. Patient does have history of similar symptoms previously associated with COPD. Patient is continuing to discontinue smoking. Patient is down to 3 cigarettes per day. - Related Data Previous Rx's Medication Instructions Recorded Albuterol Inhaler [Ventolin Hfa 2 puff INHALATION RT-QID 30 Days 07/02/18 Inhaler] #1 puff Azithromycin [Zithromax] 500 mg PO DAILY #5 tab 07/02/18 Budesonide-Formot 160-4.5 Mcg 2 puff INHALATION RT-BID 30 Days 07/02/18 [Symbicort 160-4.5 Mcg Inhaler] #1 puff Naltrexone HCl [Revia] 50 mg PO 2100 30 Days #30 tab 07/02/18 Omeprazole 20 mg PO 2100 30 Days #30 07/02/18 capsule.dr Paliperidone [Invega] 6 mg PO 2099 30 Days #30 tab.er.24 07/02/18 Pramipexole [Mirapex] 0.5 mg PO HS 30 Days #30 tab 07/02/18 Varenicline [Chantix Starter Pack] 0.5 mg PO 2099 30 Days #30 tab 07/02/18 Venlafaxine HCl ER [Effexor XR] 150 mg PO 2100 30 Days #30 07/02/18 cap.er.24h predniSONE See Taper PO DAILY 30 Days #30 tab 07/02/18 Cyclobenzaprine [Flexeril] 10 mg PO TID #15 tab 09/26/18 Allergies Allergy/AdvReac Type Severity Reaction Status Date / Time No Known Allergies Allergy Verified 10/07/18 19:22 Review of Systems ROS Statement: Those systems with pertinent positive or pertinent negative responses have been documented in the HPI. ROS Other: All systems not noted in ROS Statement are negative. Constitutional: Reports: chills Eyes: Denies: eye pain ENT: Denies: ear pain Respiratory: Reports: cough, dyspnea Cardiovascular: Denies: chest pain Endocrine: Reports: fatigue Gastrointestinal: Denies: abdominal pain Genitourinary: Denies: dysuria Musculoskeletal: Denies: back pain Skin: Denies: rash Neurological: Denies: weakness Past Medical History Past Medical History: Chest Pain / Angina, Heart Failure, COPD, GERD/Reflux, Osteoarthritis (OA) Additional Past Medical History / Comment(s): Depression, heart catheterization History of Any Multi-Drug Resistant Organisms: None Reported Past Surgical History: Adenoidectomy, Heart Catheterization, Tonsillectomy Additional Past Surgical History / Comment(s): 2013 heart cath r/t sob Past Anesthesia/Blood Transfusion Reactions: No Reported Reaction Past Psychological History: Anxiety, Depression Smoking Status: Current every day smoker Past Alcohol Use History: Occasional Past Drug Use History: None Reported - Past Family History Father History Unknown: Yes General Exam Limitations: no limitations General appearance: alert, in no apparent distress Head exam: Present: atraumatic Eye exam: Present: normal appearance, PERRL ENT exam: Present: normal oropharynx Neck exam: Present: normal inspection Respiratory exam: Present: wheezes Cardiovascular Exam: Present: tachycardia Expanded Peripheral pulses: 2+: Dorsalis Pedis (R), Dorsalis Pedis (L) GI/Abdominal exam: Present: soft. Absent: tenderness Extremities exam: Present: normal inspection. Absent: pedal edema, calf tenderness Neurological exam: Present: alert Psychiatric exam: Present: normal affect, normal mood Skin exam: Present: normal color Course Vital Signs 10/07/18 10/07/18 10/07/18 18:33 19:23 19:32 Temperature 99.5 F Pulse Rate 118 H 102 H 88 Respiratory 26 H Rate Blood Pressure 113/63 O2 Sat by Pulse 95 Oximetry Medical Decision Making - Medical Decision Making Patient reevaluated and has some improvement with dyspnea. Lung sounds with continued wheezing, somewhat improved. Patient updated on results and plan. Case was discussed with Dr. Gay, covering with Dr. Patel, who will admit for Dr. España. - Lab Data Result diagrams: 10/07/18 19:32 10/07/18 19:32 Lab Results 10/07/18 10/07/18 10/07/18 Range/Units 18:52 19:32 19:32 WBC 7.1 (3.8-10.6) k/uL RBC 4.87 (4.30-5.90) m/uL Hgb 15.4 (13.0-17.5) gm/dL Hct 47.0 (39.0-53.0) % MCV 96.4 (80.0-100.0) fL MCH 31.7 (25.0-35.0) pg MCHC 32.9 (31.0-37.0) g/dL RDW 12.4 (11.5-15.5) % Plt Count 175 (150-450) k/uL Neutrophils % 79 % Lymphocytes % 9 % Monocytes % 10 % Eosinophils % 1 % Basophils % 0 % Neutrophils # 5.6 (1.3-7.7) k/uL Lymphocytes # 0.6 L (1.0-4.8) k/uL Monocytes # 0.7 (0-1.0) k/uL Eosinophils # 0.1 (0-0.7) k/uL Basophils # 0.0 (0-0.2) k/uL Sodium 141 (137-145) mmol/L Potassium 4.1 (3.5-5.1) mmol/L Chloride 105 (98-107) mmol/L Carbon Dioxide 27 (22-30) mmol/L Anion Gap 9 mmol/L BUN 13 (9-20) mg/dL Creatinine 1.03 (0.66-1.25) mg/dL Est GFR (CKD-EPI)AfAm >90 (>60 ml/min/1.73 sqM) Est GFR (CKD-EPI)NonAf 87 (>60 ml/min/1.73 sqM) Glucose 89 (74-99) mg/dL Plasma Lactic Acid Kam (0.7-2.0) mmol/L Calcium 8.8 (8.4-10.2) mg/dL Total Bilirubin 0.5 (0.2-1.3) mg/dL AST 29 (17-59) U/L ALT 38 (21-72) U/L Alkaline Phosphatase 63 (38-126) U/L Total Protein 5.9 L (6.3-8.2) g/dL Albumin 3.7 (3.5-5.0) g/dL Influenza Type A RNA Not Detected (Not Detectd) Influenza Type B (PCR) Not Detected (Not Detectd) 10/07/18 Range/Units 19:32 WBC (3.8-10.6) k/uL RBC (4.30-5.90) m/uL Hgb (13.0-17.5) gm/dL Hct (39.0-53.0) % MCV (80.0-100.0) fL MCH (25.0-35.0) pg MCHC (31.0-37.0) g/dL RDW (11.5-15.5) % Plt Count (150-450) k/uL Neutrophils % % Lymphocytes % % Monocytes % % Eosinophils % % Basophils % % Neutrophils # (1.3-7.7) k/uL Lymphocytes # (1.0-4.8) k/uL Monocytes # (0-1.0) k/uL Eosinophils # (0-0.7) k/uL Basophils # (0-0.2) k/uL Sodium (137-145) mmol/L Potassium (3.5-5.1) mmol/L Chloride (98-107) mmol/L Carbon Dioxide (22-30) mmol/L Anion Gap mmol/L BUN (9-20) mg/dL Creatinine (0.66-1.25) mg/dL Est GFR (CKD-EPI)AfAm (>60 ml/min/1.73 sqM) Est GFR (CKD-EPI)NonAf (>60 ml/min/1.73 sqM) Glucose (74-99) mg/dL Plasma Lactic Acid Kam 1.0 (0.7-2.0) mmol/L Calcium (8.4-10.2) mg/dL Total Bilirubin (0.2-1.3) mg/dL AST (17-59) U/L ALT (21-72) U/L Alkaline Phosphatase (38-126) U/L Total Protein (6.3-8.2) g/dL Albumin (3.5-5.0) g/dL Influenza Type A RNA (Not Detectd) Influenza Type B (PCR) (Not Detectd) - Radiology Data Interpreted by me: Chest x-ray interpreted by myself does not reveal acute abnormality, radiologist interpretation is pending Disposition Clinical Impression: COPD with acute exacerbation Disposition: ADMITTED IP TO THIS HOSP Is patient prescribed a controlled substance at d/c from ED?: No Referrals: Val Concepcion MD [Primary Care Provider] - 1-2 days Decision Time: 20:13
[2018-10-07] MEDS: SODIUM CHLORIDE 0.9% 500 ML 500 ML IV SCH ×2 (19:45→19:46)
[2018-10-07 19:53] LABS: Basophils % (A) 0 %; Eosinophils # (A) 0.1 k/uL (0-0.7); Eosinophils % (A) 1 %; HGB 15.4 gm/dL (13.0-17.5); Lymphocytes # (A) 0.6 k/uL (1.0-4.8); Lymphocytes % (A) 9 %; MCH 31.7 pg (25.0-35.0); MCHC 32.9 g/dL (31.0-37.0); MCV 96.4 fL (80.0-100.0); Mean Platelet Volume 7.3; Monocytes # (A) 0.7 k/uL (0-1.0); Monocytes % (A) 10 %; Neutrophils # (A) 5.6 k/uL (1.3-7.7); Neutrophils % (A) 79 %; Platelet Count 175 k/uL (150-450); RBC 4.87 m/uL (4.30-5.90); RDW 12.4 % (11.5-15.5); WBC 7.1 k/uL (3.8-10.6)
[2018-10-07 20:02] LABS: ALT 38 U/L (21-72); AST 29 U/L (17-59); Albumin 3.7 g/dL (3.5-5.0); Alkaline Phosphatase 63 U/L (38-126); Anion Gap 9 mmol/L; Blood Urea Nitrogen 13 mg/dL (9-20); Calcium 8.8 mg/dL (8.4-10.2); Carbon Dioxide 27 mmol/L (22-30); Chloride 105 mmol/L (98-107); Glucose 89 mg/dL (74-99); Potassium 4.1 mmol/L (3.5-5.1); Sodium 141 mmol/L (137-145); Total Bilirubin 0.5 mg/dL (0.2-1.3); Total Protein 5.9 g/dL (6.3-8.2)
--- NOTE | 2018-10-07 20:11 | XR ---
EXAMINATION TYPE: XR chest 2V DATE OF EXAM: 10/07/2018 COMPARISON: 06/26/2018 HISTORY: Difficulty breathing TECHNIQUE: Frontal and lateral views of the chest are obtained. FINDINGS: There is no heart failure nor confluent pneumonic infiltrate. Costophrenic angles are nevin r. Bony thorax is intact. Heart is normal. IMPRESSION: Normal chest. No change.
[2018-10-07] MEDS ORDERED: IPRATROPIUM-ALBUTEROL 3 ML NEB INHALATION PRN (20:13)
[2018-10-07] MEDS ORDERED: methylPREDNISolone SOD SUCCI 125 MG/2 ML VIAL IV STA (20:13)
[2018-10-07 20:20] LABS: Partial Thromboplastin Time 25.9 sec (22.0-30.0); Prothrombin Time 10.4 sec (9.0-12.0)
[2018-10-07] MEDS: SODIUM CHLORIDE 0.9% 1,000 ML IV SCH (21:08)
[2018-10-07 22:02] LABS: Glucose,Whole Blood 92 mg/dL (75-99)
[2018-10-07 22:19] VITALS: BMI 27.6
[2018-10-08] MEDS: methylPREDNISolone SOD SUCCI 125 MG/2 ML VIAL IV SCH ×4 (00:46→17:19)
[2018-10-08] MEDS: SODIUM CHLORIDE 0.9% 1,000 ML IV SCH ×2 (06:13→15:50)
[2018-10-08 07:31] LABS: Glucose,Whole Blood 125 mg/dL (75-99)
[2018-10-08] MEDS: IPRATROPIUM-ALBUTEROL 3 ML NEB INHALATION SCH ×4 (08:22→19:14)
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
[2018-10-08] MEDS: DOXYCYCLINE 100 MG CAP PO SCH ×2 (10:30→20:30)
[2018-10-08 11:56] LABS: Glucose,Whole Blood 152 mg/dL (75-99)
[2018-10-08] MEDS: INSULIN ASPART (NovoLOG) 100 UNIT/ML VIAL SQ SCH ×3 (12:41→20:14)
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
[2018-10-08 16:56] LABS: Glucose,Whole Blood 131 mg/dL (75-99)
[2018-10-08] MEDS: FLUTICASONE 110 MCG INHALER INHALATION SCH (19:14)
[2018-10-08] MEDS: HEPARIN SODIUM,PORCINE 5,000 UNIT/ML 1 ML VIAL SQ SCH (20:14)
[2018-10-08 20:47] LABS: Glucose,Whole Blood 235 mg/dL (75-99)
[2018-10-09] MEDS: methylPREDNISolone SOD SUCCI 125 MG/2 ML VIAL IV SCH ×3 (00:10→13:32)
[2018-10-09] MEDS ORDERED: MAG HYDROX/AL HYDROX/SIMETH 30 ML CUP PO PRN (00:59)
[2018-10-09] MEDS: SODIUM CHLORIDE 0.9% 1,000 ML IV SCH ×2 (03:13→13:28)
[2018-10-09 06:01] VITALS: TEMP 97.9
[2018-10-09 07:17] LABS: Glucose,Whole Blood 140 mg/dL (75-99)
[2018-10-09] MEDS: INSULIN ASPART (NovoLOG) 100 UNIT/ML VIAL SQ SCH ×2 (08:15→13:14)
[2018-10-09] MEDS: DOXYCYCLINE 100 MG CAP PO SCH (08:16)
[2018-10-09] MEDS: IPRATROPIUM-ALBUTEROL 3 ML NEB INHALATION SCH ×2 (08:45→13:14)
[2018-10-09] MEDS: FLUTICASONE 110 MCG INHALER INHALATION SCH (08:45)
[2018-10-09] MEDS ORDERED: VENLAFAXINE HCL ER 150 MG CAP PO SCH (09:00)
[2018-10-09] MEDS ORDERED: PANTOPRAZOLE 40 MG TABLET PO SCH (09:00)
[2018-10-09] MEDS ORDERED: MONTELUKAST 10 MG TAB PO SCH (09:00)
[2018-10-09] MEDS: HEPARIN SODIUM,PORCINE 5,000 UNIT/ML 1 ML VIAL SQ SCH (09:18)
[2018-10-09 11:28] LABS: Glucose,Whole Blood 116 mg/dL (75-99)
--- NOTE | 2018-10-09 12:42 | P.PN ---
Subjective Progress Note Date: 10/09/18 Principal diagnosis: Acute exacerbation of chronic obstructive pulmonary disease. This is a very pleasant 47-year-old gentleman who follows with Dr. Concepcion as his primary care physician. He has a history of chronic obstructive disease, chronic and ongoing tobacco dependence, esophageal reflux disease, anxiety/depression, history of cocaine and marijuana use. He has been maintained on Singulair, Qvar and albuterol in the outpatient setting. He had been doing better on Symbicort and Spiriva by his insurance would not cover them. He presented here to the emergency room yesterday with complaints of increasing shortness of breath, loose nonproductive cough. Dyspnea on exertion. Chest x-ray reveals no acute pulmonary process. White count 7.5. Hemoglobin 15.4. Creatinine 1.03. Influenza screen negative. He is seen today in consultation on the regular medical floor. He is awake and alert in no acute distress. He is breathing a bit better than yesterday but not quite back to his baseline. Still somewhat bronchospastic and wheezy. He is maintaining O2 sat urations in the mid 90s on room air. He's been afebrile. Hemodynamically stable. He's been initiated and DuoNeb inhalations, IV Solu-Medrol, antibiotics in the form of ceftriaxone and Vibramycin. The patient is seen today 10/09/2018 in follow-up on the regular medical floor. He is awake and alert in no acute distress. He denies any worsening shortness of breath, cough or congestion. He is feeling much improved since his admission. Nearly back to his baseline. Still has a loose nonproductive cough. No chills or night sweats. He is maintaining good O2 saturations in the 90s on room air. He's been afebrile. Hemodynamically stable. Blood and sputum reveals no growth. His been maintained on DuoNeb inhalations, Flovent, IV Solu- Medrol. Empiric antibiotics. Objective - Vital Signs Vital signs: Vital Signs Temp 97.9 F 10/09/18 06:00 Pulse 82 10/09/18 08:55 Resp 17 10/09/18 06:00 BP 118/63 10/09/18 06:00 Pulse Ox 94 L 10/09/18 06:00 Intake & Output 10/08/18 10/09/18 10/09/18 18:59 06:59 18:59 Intake Total 1780 360 Balance 1780 360 Intake: Intake, IV Titration 400 Amount Sodium Chloride 0.9% 1, 400 000 ml @ 100 mls/hr IV . Q10H [facility] Rx#:[id number] Oral 1380 360 Other: # Voids 1 1 1 # Bowel Movements 1 - Exam GENERAL EXAM: Alert, active, comfortable in no apparent distress. On room air. HEAD: Normocephalic. EYES: Normal reaction of pupils, equal size. NOSE: Clear with pink turbinates. THROAT: No erythema or exudates. NECK: No masses, no JVD. CHEST: No chest wall deformity. LUNGS: Equal air entry with faint end expiratory wheeze, diminished. CVS: S1 and S2 normal with no audible murmur, regular rhythm. ABDOMEN: No hepatosplenomegaly, normal bowel sounds, no guarding or rigidity. SPINE: No scoliosis or deformity SKIN: No rashes CENTRAL NERVOUS SYSTEM: No focal deficits, tone is normal in all 4 extremities. EXTREMITIES: There is no peripheral edema. No clubbing, no cyanosis. Peripheral pulses are intact. - Labs CBC & Chem 7: 10/07/18 19:32 10/07/18 19:32 Labs: Abnormal Lab Results - Last 24 Hours (Table) 10/08/18 10/08/18 10/09/18 Range/Units 16:49 20:12 07:16 POC Glucose (mg/dL) 131 H 235 H 140 H (75-99) mg/dL 10/09/18 Range/Units 11:27 POC Glucose (mg/dL) 116 H (75-99) mg/dL Microbiology - Last 24 Hours (Table) 10/08/18 15:41 Gram Stain - Preliminary Sputum Sputum Culture - Preliminary 10/07/18 20:01 Blood Culture - Preliminary Blood No Growth after 24 hours Assessment and Plan Assessment: Impression: #1 Acute exacerbation of chronic obstructive pulmonary disease. #2 Chronic and ongoing tobacco dependence. #3 History of severe depression with previous suicidal ideations. #4 History of cocaine use. #5 History of marijuana use. #6 Previous admission for suicidal ideations. #7 Gastroesophageal reflux disease Plan: The patient was seen and evaluated by Dr. Barrett. The patient is cleared for discharge from the pulmonary standpoint. We'll convert his IV Solu-Medrol to prednisone burst and taper. Complete a course of antibiotics. Continue his home Qvar and albuterol. He will follow-up in our office in 1-2 weeks' time. We will perform pulmonary function testing then and make further recommendations regarding maintenance medications. He is again educated regarding the importance of complete smoking cessation. I, the cosigning physician, performed a history & physical examination of the patient. Lungs sounds with bilateral end expiratory wheeze, scattered rhonchi, diminished. Maintaining good O2 saturations in the 90s on room air. I discussed the assessment and plan of care with my nurse practitioner, Huyen Medrano. I attest to the above note as dictated by her.
[2018-10-09 14:51] VITALS: BP 133/70; PULSE 88; RESP 18
--- NOTE | 2018-10-13 22:44 | P.DS ---
Providers Date of admission: 10/07/18 20:38 Expected date of discharge: 10/09/18 Attending physician: Nicolas Morgan MD Consults: 10/07/18 20:13 Consult Physician Routine Consulting Provider: Anitha Barrett Consult Reason/Comments: dyspnea Do you want consulting provider notified?: Yes Primary care physician: Val [facility] Course: 47-year-old gentleman; history of chronic obstructive disease, chronic and ongoing tobacco dependence, esophageal reflux disease, anxiety/depression, history of cocaine and marijuana use. He has been maintained on Singulair, Qvar and albuterol in the outpatient setting. He had been doing better on Symbicort and Spiriva by his insurance would not cover them. He presented here to the emergency room yesterday with complaints of increasing shortness of breath, loose nonproductive cough. Dyspnea on exertion. Chest x-ray reveals no acute pulmonary process; Influenza screen negative. He was initiated on DuoNeb inhalations, IV Solu-Medrol, antibiotics in the form of ceftriaxone and Vibramycin. Plan - Discharge Summary New Discharge Prescriptions: Continue Venlafaxine HCl ER [Effexor XR] 150 mg PO DAILY Montelukast [Singulair] 10 mg PO DAILY Omeprazole 20 mg PO DAILY Beclomethasone Dip 80 Mcg/Puff [Qvar 80 mcg] 1 puff INHALATION RT-BID Discharge Medication List Beclomethasone Dip 80 Mcg/Puff [Qvar 80 mcg] 1 puff INHALATION RT-BID 10/07/18 [History] Montelukast [Singulair] 10 mg PO DAILY 10/07/18 [History] Omeprazole 20 mg PO DAILY 10/07/18 [History] Venlafaxine HCl ER [Effexor XR] 150 mg PO DAILY 10/07/18 [History] Follow up Appointment(s)/Referral(s): Val Concepcion MD [Primary Care Provider] - 10/15/18 11:00 am Discharge Disposition: HOME SELF-CARE
== END 2018-10-09 15:48 | disposition home or self-care (01) ==
LOC: EC 18:28 → 4MS4W 20:38 → 3NMEDONC 10-08 17:45
PROVIDERS: ADMIT Internal Medicine; ATTEND Internal Medicine
DX: J44.1 Chronic obstructive pulmonary disease with (acute) exacerbation (principal); F17.210 Nicotine dependence, cigarettes, uncomplicated; F32.9 Major depressive disorder, single episode, unspecified; M19.90 Unspecified osteoarthritis, unspecified site; I25.10 Atherosclerotic heart disease of native coronary artery without angina pectoris; K21.9 Gastro-esophageal reflux disease without esophagitis; I50.9 Heart failure, unspecified; E66.9 Obesity, unspecified; Z68.28 Body mass index [BMI] 28.0-28.9, adult; Z79.899 Other long term (current) drug therapy; Z79.51 Long term (current) use of inhaled steroids; Z82.2 Family history of deafness and hearing loss; F41.9 Anxiety disorder, unspecified; Z95.5 Presence of coronary angioplasty implant and graft
CPT/HCPCS: 96376 ×2; 96365; 96366; 96372 ×2; 96361; 96375; 99285; 36415; 94640 ×5; 94760; 80053; 83605; 85025; 85610; 85730; 87040; 87070; 87205; 87502; 71046; G0378 ×3; J1644 ×2; J2930 ×3; J0696 ×2

== ENCOUNTER 2018-10-12 19:33 | Inpatient (IN) | payer MEDICAID, OTHER ==
[2018-10-12] MEDS ORDERED: IPRATROPIUM 0.5 MG/2.5 ML NEBU INHALATION STA (20:13)
[2018-10-12] MEDS ORDERED: ALBUTEROL NEBULIZED 2.5 MG/3 ML INHALATION STA (20:13)
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
[2018-10-12] MEDS ORDERED: IPRATROPIUM-ALBUTEROL 3 ML NEB INHALATION STA (21:21)
[2018-10-12] MEDS ORDERED: SODIUM CHLORIDE 0.9% 500 ML 500 ML IV STA (21:21)
[2018-10-12] MEDS ORDERED: SODIUM CHLORIDE 0.9% 1,000 ML IV STA (21:21)
[2018-10-12 21:33] LABS: HCT 48.5 % (39.0-53.0); HGB 16.1 gm/dL (13.0-17.5); MCH 31.5 pg (25.0-35.0); MCHC 33.2 g/dL (31.0-37.0); MCV 94.9 fL (80.0-100.0); Mean Platelet Volume 7.8; Platelet Count 263 k/uL (150-450); RBC 5.11 m/uL (4.30-5.90); RDW 12.3 % (11.5-15.5); WBC 8.2 k/uL (3.8-10.6)
[2018-10-12 21:43] LABS: ALT 41 U/L (21-72); AST 35 U/L (17-59); Albumin 3.6 g/dL (3.5-5.0); Alkaline Phosphatase 62 U/L (38-126); Anion Gap 8 mmol/L; Blood Urea Nitrogen 18 mg/dL (9-20); Calcium 8.6 mg/dL (8.4-10.2); Carbon Dioxide 29 mmol/L (22-30); Chloride 105 mmol/L (98-107); Glucose 74 mg/dL (74-99); Magnesium 2.2 mg/dL (1.6-2.3); Potassium 4.5 mmol/L (3.5-5.1); Sodium 142 mmol/L (137-145); Total Bilirubin 0.7 mg/dL (0.2-1.3); Total Protein 6.3 g/dL (6.3-8.2)
[2018-10-12 22:19] LABS: Lymphocytes # (M) 2.13 k/uL (1.0-4.8); Monocytes # (M) 0.08 k/uL (0-1.0); Neutrophils # (M) 5.99 k/uL (1.3-7.7); Neutrophils % (M) 73 %; Nucleated Red Blood Cells 0 /100 WBC (0-0); Reactive Lymphocytes Present; Total Cells Counted 100
[2018-10-12 22:20] LABS: Poikilocytosis (M) Present
[2018-10-12 22:26] LABS: Amphetamine Screen,Urine Not Detected (NotDetected); Barbiturate Screen,Urine Not Detected (NotDetected); Benzodiazepines Screen,Urine Not Detected (NotDetected); Cocaine Screen,Urine Detected (NotDetected); Methadone Screen, Urine Not Detected (NotDetected); Opiate Screen,Urine Not Detected (NotDetected); Oxycodone Screen, Urine Not Detected (NotDetected); Phencyclidine Screen,Urine Not Detected (NotDetected); Tricyclic Antidepressant,Urine Not Detected (NotDetected); Urn Cannabinoid Scrn Detected (NotDetected)
[2018-10-12] MEDS ORDERED: ACETAMINOPHEN TAB 325 MG TAB PO PRN (23:27)
[2018-10-12] MEDS ORDERED: MAGNESIUM HYDROXIDE 2,400 MG/10 ML CUP PO PRN (23:27)
[2018-10-12] MEDS ORDERED: ZIPRASIDONE 20 MG VIAL IM PRN (23:27)
[2018-10-12] MEDS ORDERED: MAG HYDROX/AL HYDROX/SIMETH 30 ML CUP PO PRN (23:27)
[2018-10-12] MEDS ORDERED: LORazepam 1 MG TAB PO PRN (23:27)
[2018-10-12] MEDS ORDERED: LORazepam 2 MG/ML INJ IM PRN (23:36)
[2018-10-13 00:17] VITALS: BMI 27.2
[2018-10-13] MEDS ORDERED: NICOTINE 14MG/24HR PATCH TRANSDERM SCH (09:00)
[2018-10-13] MEDS ORDERED: VENLAFAXINE HCL ER 150 MG CAP PO SCH (09:00)
[2018-10-13] MEDS: PANTOPRAZOLE 40 MG TABLET PO SCH (09:18)
[2018-10-13] MEDS: MONTELUKAST 10 MG TAB PO SCH (09:18)
--- NOTE | 2018-10-13 10:27 | P.HP ---
Psychiatric H&P - . History & Physical: Allergies Allergy/AdvReac Type Severity Reaction Status Date / Time No Known Allergies Allergy Verified 10/12/18 21:37 Vital Signs Temp 97.7 F 10/13/18 00:09 Pulse 87 10/13/18 00:09 Resp 15 10/13/18 00:09 BP 100/58 10/13/18 00:09 Pulse Ox 95 10/13/18 00:09 Intake & Output 10/12/18 10/13/18 10/13/18 18:59 06:59 18:59 Weight 99.11 kg Laboratory Last Values WBC 8.2 k/uL (3.8-10.6) 10/12/18 20:36 RBC 5.11 m/uL (4.30-5.90) 10/12/18 20:36 Hgb 16.1 gm/dL (13.0-17.5) 10/12/18 20:36 Hct 48.5 % (39.0-53.0) 10/12/18 20:36 MCV 94.9 fL (80.0-100.0) 10/12/18 20:36 MCH 31.5 pg (25.0-35.0) 10/12/18 20:36 MCHC 33.2 g/dL (31.0-37.0) 10/12/18 20:36 RDW 12.3 % (11.5-15.5) 10/12/18 20:36 Plt Count 263 k/uL (150-450) 10/12/18 20:36 Neutrophils % (Manual) 73 % 10/12/18 20:36 Lymphocytes % (Manual) 26 % 10/12/18 20:36 Monocytes % (Manual) 1 % 10/12/18 20:36 Neutrophils # (Manual) 5.99 k/uL (1.3-7.7) 10/12/18 20:36 Lymphocytes # (Manual) 2.13 k/uL (1.0-4.8) 10/12/18 20:36 Monocytes # (Manual) 0.08 k/uL (0-1.0) 10/12/18 20:36 Nucleated RBCs 0 /100 WBC (0-0) 10/12/18 20:36 Manual Slide Review Performed 10/12/18 20:36 Reactive Lymphocytes Present 10/12/18 20:36 Poikilocytosis (manual Present 10/12/18 20:36 Sodium 142 mmol/L (137-145) 10/12/18 20:36 Potassium 4.5 mmol/L (3.5-5.1) 10/12/18 20:36 Chloride 105 mmol/L (98-107) 10/12/18 20:36 Carbon Dioxide 29 mmol/L (22-30) 10/12/18 20:36 Anion Gap 8 mmol/L 10/12/18 20:36 BUN 18 mg/dL (9-20) 10/12/18 20:36 Creatinine 0.86 mg/dL (0.66-1.25) 10/12/18 20:36 Est GFR (CKD-EPI)AfAm >90 (>60 ml/min/1.73 sqM) 10/12/18 20:36 Est GFR (CKD-EPI)NonAf >90 (>60 ml/min/1.73 sqM) 10/12/18 20:36 Glucose 74 mg/dL (74-99) 10/12/18 20:36 Calcium 8.6 mg/dL (8.4-10.2) 10/12/18 20:36 Magnesium 2.2 mg/dL (1.6-2.3) 10/12/18 20:36 Total Bilirubin 0.7 mg/dL (0.2-1.3) 10/12/18 20:36 AST 35 U/L (17-59) 10/12/18 20:36 ALT 41 U/L (21-72) 10/12/18 20:36 Alkaline Phosphatase 62 U/L (38-126) 10/12/18 20:36 Troponin I <0.012 ng/mL (0.000-0.034) 10/12/18 20:36 NT-Pro-B Natriuret Pep 59 pg/mL 10/12/18 20:36 Total Protein 6.3 g/dL (6.3-8.2) 10/12/18 20:36 Albumin 3.6 g/dL (3.5-5.0) 10/12/18 20:36 Triglycerides 118 mg/dL (<150) 10/13/18 08:45 Cholesterol 116 mg/dL (<200) 10/13/18 08:45 LDL Cholesterol, Calc 54 mg/dL (0-99) 10/13/18 08:45 HDL Cholesterol 38 mg/dL (40-60) L 10/13/18 08:45 TSH 1.030 mIU/L (0.465-4.680) 10/13/18 08:45 Urine Opiates Screen Not Detected (NotDetected) 10/12/18 22:07 Ur Oxycodone Screen Not Detected (NotDetected) 10/12/18 22:07 Urine Methadone Screen Not Detected (NotDetected) 10/12/18 22:07 Ur Propoxyphene Screen Not Detected (NotDetected) 10/12/18 22:07 Ur Barbiturates Screen Not Detected (NotDetected) 10/12/18 22:07 U Tricyclic Antidepress Not Detected (NotDetected) 10/12/18 22:07 Ur Phencyclidine Scrn Not Detected (NotDetected) 10/12/18 22:07 Ur Amphetamines Screen Not Detected (NotDetected) 10/12/18 22:07 U Methamphetamines Scrn Not Detected (NotDetected) 10/12/18 22:07 U Benzodiazepines Scrn Not Detected (NotDetected) 10/12/18 22:07 Urine Cocaine Screen Detected (NotDetected) H 10/12/18 22:07 U Marijuana (THC) Screen Detected (NotDetected) H 10/12/18 22:07 10/13/18 10:17 IDENTIFYING DATA: This patient is a 47-year-old male who was admitted to the mental health unit through the emergency room for suicidal ideation. HPI: The patient presented reporting suicidal ideation. He reported feeling hopeless. He endorses a depressed mood increased sleep and decreased appetite with poor self-care. He indicates he's lost about 30 pounds since August. He has a history of major depressive disorder and has not been compliant with medication. He presents with a history of alcohol cocaine and cannabis use disorders as well. He states he has reduced his alcohol use to about every 2 days but has been using crack cocaine daily. Marijuana use has been regular. He indicates there has been some kind of breakup with his girlfriend whom he was residing with. He assumes he will not be returning there upon discharge. He endorses intermittent feelings of anxiety. No panic attacks he does not endorse criteria for generalized anxiety disorder. He is reporting no history of hypomanic or manic episodes he reports no auditory or visual hallucinations or any specific delusions. He is unsure if all of the firearms have been removed from his prior residence. He states there were guns there but the police may have taken them. PAST PSYCHIATRIC HISTORY: This is the patient's third admission to this mental health unit since May 2018, he believes she's had 4 admissions total. He has been a [facility] approximately 2 years ago following a suicide attempt via overdose. He does not work with a therapist or psychiatrist in the outpatient setting. With the last 2 admissions here he was placed on Effexor XR. He states that lately he has not been complying with it very well but there was a 4-6 week stretch where he did take it daily and noticed no benefit. He had been on Zoloft in the past but does not recall if he had any positive or negative results. PMH: COPD, GERD ALLERGIES: NO KNOWN DRUG ALLERGIES MEDICATIONS: Refer to [facility] CHEMICAL DEPENDENCY HISTORY: The patient has a known alcohol use disorder. Previously he has reported drinking since the age of 14. He states that he's been drinking less than every other day. There have been times in his life where he was drinking heavily on a daily basis. His last drink was 2 days ago. He does use marijuana frequently but he does not specify how often, cocaine in the form of crack has been used on a daily basis for the last several years he states he's been going through about $100 a day. He has been to inpatient chemical dependency treatment numerous times in the past including [facility]. FAMILY PSYCHIATRIC HISTORY: Unknown FAMILY CHEMICAL DEPENDENCY HISTORY: Mother, grandfather, sister known to have alcohol use disorder SOCIAL HISTORY: The patient is 47 years old is he has been with the same girlfriend for 7 years. They have been residing together with her son. He indicates that her son is a drug dealer selling cocaine and marijuana and that his girlfriend uses cocaine as well. 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 He has a 10th grade education and earned his GED in senior living. He has 1 sister his parents are . He was raised by both parents in the [place] area. Abuse history none reported, legal history he has had numerous arrests for DUI and served one year in senior living. He reports no history of violent crimes. MENTAL STATUS EXAM: The patient is a tall thin male appearing older than his stated age. He has short edwards hair. He is dressed in hospital gowns. He is pleasant cooperative easily directed. He indicates having a depressed mood with hopelessness feelings and suicidal thoughts. He endorses feelings of anxiety at times. He reports no homicidal ideation intent or plan. He demonstrates no tangential thinking loose associations or flight of ideas. He does not appear hypomanic or manic. He reports no auditory or visual hallucinations or any specific delusions. There is no observed evidence of psychosis. He is oriented to person place and date. He is able to name the days of the week backwards. He demonstrates no verbal or physical aggressiveness. He demonstrates no involuntary repetitive movements. Affect is bland throughout the session. STRENGTHS/WEAKNESSES: Willingness to receive treatment voluntarily weaknesses: Possible homelessness, substance use, poor compliance with outpatient treatment INTELLECTUAL FUNCTIONING: Average IMPRESSIONS: [] 1. Major depressive disorder recurrent severe without psychosis, cocaine use disorder, alcohol use disorder, cannabis use disorder 2. COPD, GERD 3. Possible homelessness PLAN: The patient has been admitted to the mental health unit voluntarily. We reviewed his presenting symptoms and treatment options. We decided to disco ntinue the Effexor due to lack of effect and initiate Lexapro starting tomorrow 10 mg daily. We discussed potential benefits and side effects of Lexapro his questions were answered. He will be seen by internal medicine for routine history and physical exam. Social work will meet with the patient to complete a psychosocial assessment and begin discharge planning. We discussed the possibility of having him attend inpatient chemical dependency treatment and he is undecided. We will monitor him for safety he is encouraged to fully participate in the milieu. Vital signs reviewed lab results reviewed. We will involve family or friends in treatment and discharge planning as he will allow.
[2018-10-13] MEDS: FLUTICASONE 110 MCG INHALER INHALATION SCH ×2 (11:14→18:57)
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
[2018-10-13 20:26] LABS: Hemoglobin A1C 5.2 % (4.0-6.0)
[2018-10-14] MEDS: PANTOPRAZOLE 40 MG TABLET PO SCH (08:00)
[2018-10-14] MEDS: MONTELUKAST 10 MG TAB PO SCH (08:00)
[2018-10-14] MEDS: ESCITALOPRAM 10 MG TAB PO SCH (08:00)
[2018-10-14] MEDS: FLUTICASONE 110 MCG INHALER INHALATION SCH ×2 (09:21→19:00)
--- NOTE | 2018-10-14 10:01 | P.PN ---
Progress Note - Text Interval history: The patient is found in group he follows me to an interview room. He indicates that his mood is still down he feels frustrated and anxious at times. He did decide to call the access line to arrange inpatient chemical dependency treatment at [facility]. He has been started on the Lexapro he has no questions or concerns regarding the medication. We spent some time discussing his relationship with his girlfriend. He states that she continues to use illicit drugs and it is that relationship but always draws him into drug use. He states that in the recent past he was down in [facility] went to a rehab and had a job afterwards and was sober for 4 months. He came back for his girlfriend and immediately relapsed. He struggles with terminating that relationship although rationally he knows it's what he needs to do. Mental status exam: The patient is alert he is dressed in his own clothing hygiene grooming adequate. He is cooperative and pleasant. He maintains a bland affect. He readily participates in the conversation. He reports his mood is depressed he does have some hopelessness thinking. He does feel safe in the hospital. He is reporting no homicidal ideation intent or plan. He is reporting no auditory or visual hallucinations or any specific delusions. There is no observed evidence of psychosis. Thought process is linear speech is fluent and spontaneous and nonpressured. He demonstrates no tangential thinking loose associations or flight of ideas. He does not appear hypomanic or manic. He demonstrates no verbal or physical aggressiveness. Insight and judgment currently limited. Plan: The patient will continue on the Lexapro is written. We will await response from [facility] in terms of a placement date for inpatient chemical dependency treatment. The patient's encouraged to continue participating in the milieu. We will monitor him for safety. Vital signs reviewed.
[2018-10-15] MEDS: FLUTICASONE 110 MCG INHALER INHALATION SCH ×2 (08:21→21:04)
[2018-10-15] MEDS: ESCITALOPRAM 10 MG TAB PO SCH (09:07)
[2018-10-15] MEDS: MONTELUKAST 10 MG TAB PO SCH (09:07)
[2018-10-15] MEDS: PANTOPRAZOLE 40 MG TABLET PO SCH (09:07)
--- NOTE | 2018-10-15 11:04 | P.PN ---
Progress Note - Text Interval history: The patient is found in his room he follows me to an interview room. He indicates that his mood is down today. He feels "subdued". He continues to struggle with thoughts regarding the relationship he has with his girlfriend and her son. He continues to want to go to [facility] for inpatient chemical dependency treatment upon discharge. He has not been attending groups this morning as he reports he didn't sleep well last night. He is encouraged to not sleep during the day. We reviewed his psychotropic medic ation he has no questions or concerns. Mental status exam: The patient is alert he is pleasant cooperative. He is dressed in his own clothing hygiene grooming adequate. Speech is fluent spontaneous nonpressured. He denies having any acute suicidal ideation intent or plan at this point. He describes his mood as being down in subdued today. He does feel safe here. He is reporting no auditory or visual hallucinations or any specific delusions. He does not appear hypomanic or manic. He demonstrates no verbal or physical aggressiveness. Affect is constricted. Insight and judgment improving. Plan: The patient will continue on his current medication. He is encouraged to stay awake the rest of the day and attend groups. We discussed his relationship concerns again in some detail. He remains committed to attending inpatient chemical dependency treatment upon discharge from our facility. We are awaiting and acceptance date from [facility]. Vital signs reviewed.
[2018-10-16 06:51] VITALS: BP 140/67; PULSE 59; RESP 18; TEMP 98.2
[2018-10-16] MEDS: FLUTICASONE 110 MCG INHALER INHALATION SCH (08:57)
[2018-10-16] MEDS: PANTOPRAZOLE 40 MG TABLET PO SCH (09:05)
[2018-10-16] MEDS: ESCITALOPRAM 10 MG TAB PO SCH (09:05)
[2018-10-16] MEDS: MONTELUKAST 10 MG TAB PO SCH (09:05)
--- NOTE | 2018-10-16 09:30 | P.DS ---
Providers Date of admission: 10/12/18 23:14 Expected date of discharge: 10/16/18 Attending physician: Keyshawn Marie Consults: 10/12/18 23:27 Consult Physician Routine Consulting Provider: Pam Patel Consult Reason/Comments: H&P and medical Do you want consulting provider notified?: Yes Primary care physician: Val Concepcion - Discharge Diagnosis(es) (1) Major depressive disorder, recurrent severe without psychotic features Current Visit: Yes Status: Acute Priority: High (2) Cocaine use disorder Current Visit: No Status: Acute Priority: High (3) Cannabis use disorder, mild, abuse Current Visit: No Status: Acute Priority: Medium (4) Alcohol use disorder Current Visit: Yes Status: Acute Priority: Medium Hospital Course: Brief summary of admission note: This patient is a 47-year-old male who was admitted to the mental health unit through the emergency room for suicidal ideation. The patient reported he felt suicidal hopeless. He indicated having difficulty with his own self-care he had decreased appetite and excessive sleep. He reported a weight loss of 30 pounds since August. He had been noncompliant with prescribed medication and had been using crack cocaine daily alcohol intermittently as well as marijuana. For full details please refer to my psychiatric evaluation dated 10/13/2018. Summary of hospital course: The patient was admitted to the mental health unit voluntarily. We reviewed his presenting symptoms and treatment options. We decided to initiate Lexapro 10 mg daily as an antidepressant. He was seen by internal medicine for routine history and physical exam. workers compensation attorney met with patient to complete a psychosocial assessment and for discharge planning purposes. During the course of the hospitalization we discussed the possibility of having him attend inpatient chemical dependency treatment again and he did call access and indicated he wanted to go to [facility]. [facility] has accepted the patient and he has a start date next Friday. The patient states that his suicidal ideation has resolved. He has no questions or concerns regarding the Lexapro. He indicates he is able to arrange housing until his placement date Friday. He states [facility]. He reports future oriented thinking such as completing rehab going to a three-quarter home afterwards and then obtaining work. Mental status exam: The patient is alert he presents with adequate hygiene grooming. Speech is fluent spontaneous nonpressured. Affect is appropriately expressive and appears euthymic. He reports no suicidal ideation intent or plan. He no longer feels hopeless. He denies having any homicidal ideation intent or plan. There is no report or evidence of auditory or visual hallucinations or any specific delusions. Thought process is linear he demonstrates no tangential thinking loose associations or flight of ideas. He does not appear to be hypomanic or manic. He demonstrates no verbal or physical aggressiveness. Insight and judgment are grossly intact. Impressions 1. Major depressive disorder recurrent severe without psychosis, cocaine use disorder, alcohol use disorder, cannabis use disorder 2. COPD, GERD Plan: The patient will be discharged from the mental health unit today. He states he will either rent a room or [facility] for the [facility] several days prior to his placement at [facility] on Friday. The patient will be continued on Lexapro 10 mg daily. He is instructed to abstain from any use of alcohol marijuana or any illicit drug as those will precipitate mood symptoms and elevate his safety risk. He feels that he is able to keep himself sober until Friday. There is no imminent safety risk at this time he is appropriate for transition to outpatient care. He is instructed to return to the hospital any acute safety concerns. Patient Condition at Discharge: Stable Plan - Discharge Summary New Discharge Prescriptions: New Escitalopram [Lexapro] 10 mg PO DAILY #30 tab Pantoprazole [Protonix] 40 mg PO DAILY@07 #30 tablet. Continue Beclomethasone Dip 80 Mcg/Puff [Qvar 80 mcg] 1 puff INHALATION RT-BID #1 inhaler Montelukast [Singulair] 10 mg PO DAILY #30 tab Discontinued Venlafaxine HCl ER [Effexor XR] 150 mg PO DAILY Omeprazole 20 mg PO DAILY Discharge Medication List Beclomethasone Dip 80 Mcg/Puff [Qvar 80 mcg] 1 puff INHALATION RT-BID #1 inhaler 10/16/18 [Rx] Escitalopram [Lexapro] 10 mg PO DAILY #30 tab 10/16/18 [Rx] Montelukast [Singulair] 10 mg PO DAILY #30 tab 10/16/18 [Rx] Pantoprazole [Protonix] 40 mg PO DAILY@0730 #30 tablet. 10/16/18 [Rx] Follow up Appointment(s)/Referral(s): [facility] [Outside] - 10/21/18 1:00 pm (10/21/18 at 1:00 with intake ) Val Concepcion MD [Primary Care Provider] - 1-2 days
== END 2018-10-16 12:51 | disposition home or self-care (01) | DRG 885 ==
LOC: EC 19:33 → 3MHU 23:14
PROVIDERS: ADMIT Psychiatry & Neurology Psychiatry; ATTEND Psychiatry & Neurology Psychiatry
DX: F33.2 Major depressive disorder, recurrent severe without psychotic features (principal); R45.851 Suicidal ideations; I50.9 Heart failure, unspecified; F41.9 Anxiety disorder, unspecified; F14.10 Cocaine abuse, uncomplicated; F12.10 Cannabis abuse, uncomplicated; F10.10 Alcohol abuse, uncomplicated; J44.9 Chronic obstructive pulmonary disease, unspecified; K21.9 Gastro-esophageal reflux disease without esophagitis; M19.90 Unspecified osteoarthritis, unspecified site; F17.210 Nicotine dependence, cigarettes, uncomplicated; Z71.6 Tobacco abuse counseling; Z79.51 Long term (current) use of inhaled steroids; Z79.899 Other long term (current) drug therapy; Z87.81 Personal history of (healed) traumatic fracture; Z59.0 Homelessness; Z91.5 Personal history of self-harm; Z91.14 Patient's other noncompliance with medication regimen; Z91.19 Patient's noncompliance with other medical treatment and regimen; Z82.2 Family history of deafness and hearing loss
CPT/HCPCS: 36415; 80053; 80061; 80306; 83036; 83735; 83880; 84443; 84484; 85025; 93005; 94640; 96360; 96361; 99285

== ENCOUNTER 2019-01-19 08:40 | Inpatient (IN) | payer OTHER ==
[2019-01-19] MEDS ORDERED: methylPREDNISolone SOD SUCCI 125 MG/2 ML VIAL IV STA (09:10)
[2019-01-19] MEDS ORDERED: IPRATROPIUM-ALBUTEROL 3 ML NEB INHALATION STA (09:10)
[2019-01-19] MEDS ORDERED: SODIUM CHLORIDE 0.9% 1,000 ML IV STA ×2 (09:10)
[2019-01-19] MEDS ORDERED: ALBUTEROL NEBULIZED 2.5 MG/3 ML INHALATION STA (09:10)
[2019-01-19 10:12] LABS: Basophils % (A) 0 %; Eosinophils # (A) 0.1 k/uL (0-0.7); Eosinophils % (A) 1 %; HCT 43.5 % (39.0-53.0); HGB 14.2 gm/dL (13.0-17.5); Lymphocytes # (A) 0.9 k/uL (1.0-4.8); Lymphocytes % (A) 7 %; MCH 31.4 pg (25.0-35.0); MCHC 32.6 g/dL (31.0-37.0); MCV 96.4 fL (80.0-100.0); Mean Platelet Volume 7.2; Monocytes % (A) 7 %; Neutrophils # (A) 11.1 k/uL (1.3-7.7); Neutrophils % (A) 83 %; Platelet Count 214 k/uL (150-450); RBC 4.51 m/uL (4.30-5.90); RDW 13.9 % (11.5-15.5); WBC 13.3 k/uL (3.8-10.6)
[2019-01-19 10:20] LABS: INR 0.9 (<1.2); Partial Thromboplastin Time 27.7 sec (22.0-30.0); Prothrombin Time 10.1 sec (9.0-12.0)
[2019-01-19 10:23] LABS: ALT 36 U/L (21-72); AST 30 U/L (17-59); African American GFR (CKD) >90 (>60 ml/min/1.73 sqM); Albumin 3.3 g/dL (3.5-5.0); Alkaline Phosphatase 51 U/L (38-126); Anion Gap 7 mmol/L; Blood Urea Nitrogen 11 mg/dL (9-20); Calcium 8.4 mg/dL (8.4-10.2); Carbon Dioxide 28 mmol/L (22-30); Chloride 102 mmol/L (98-107); Glucose 82 mg/dL (74-99); Magnesium 1.9 mg/dL (1.6-2.3); Potassium 3.9 mmol/L (3.5-5.1); Sodium 137 mmol/L (137-145); Total Bilirubin 0.9 mg/dL (0.2-1.3); Total Protein 5.4 g/dL (6.3-8.2)
--- NOTE | 2019-01-19 10:34 | XR ---
EXAMINATION TYPE: XR chest 2V DATE OF EXAM: 01/19/2019 COMPARISON: Chest x-ray October 07, 2018 HISTORY: Shortness of breath, cough, and congestion. TECHNIQUE: Frontal and lateral views of the chest are obtained. FINDINGS: Background chronic emphysematous changes redemonstrated. There is no suspicious new focal a ir space opacity, pleural effusion, or pneumothorax seen. The cardiac silhouette size is within norm al limits. The osseous structures are intact. IMPRESSION: Perhaps mild underlying emphysematous change without acute pulmonary process.
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
[2019-01-19] MEDS ORDERED: IBUPROFEN 600 MG TAB PO STA (11:12)
[2019-01-19] MEDS ORDERED: ACETAMINOPHEN TAB 500 MG TAB PO STA (11:12)
[2019-01-19] MEDS ORDERED: ACETAMINOPHEN TAB 325 MG TAB PO PRN (11:29)
[2019-01-19] MEDS ORDERED: NALOXONE 0.4 MG/ML 1 ML VIAL IV PRN (11:29)
[2019-01-19] MEDS ORDERED: MORPHINE SULFATE 4 MG/ML SYRINGE IV PRN (11:29)
[2019-01-19] MEDS ORDERED: KETOROLAC 30 MG/ML 1 ML VIAL IVP PRN (11:29)
[2019-01-19] MEDS ORDERED: ONDANSETRON 4 MG/2 ML VIAL IVP PRN (11:29)
[2019-01-19] MEDS ORDERED: IBUPROFEN 400 MG TAB PO PRN (11:29)
[2019-01-19] MEDS ORDERED: AZITHROMYCIN 500 MG TAB PO STA (11:30)
[2019-01-19] MEDS ORDERED: IPRATROPIUM-ALBUTEROL 3 ML NEB INHALATION PRN (11:31)
[2019-01-19] MEDS ORDERED: PROMETHAZ-COD 6.25-10 MG/5 ML 5 ML CUP PO PRN (11:31)
[2019-01-19] MEDS ORDERED: ALBUTEROL NEBULIZED 2.5 MG/3 ML INHALATION SCH (12:00)
[2019-01-19 14:28] VITALS: BMI 27.1
[2019-01-19] MEDS: methylPREDNISolone SOD SUCCI 125 MG/2 ML VIAL IV SCH ×2 (14:49→17:47)
[2019-01-19] MEDS ORDERED: HYDROcodone/APAP 5-325MG 1 EACH TAB PO PRN (15:11)
[2019-01-19] MEDS ORDERED: TEMAZEPAM 15 MG CAP PO PRN (15:11)
[2019-01-19] MEDS ORDERED: ALPRAZolam 0.25 MG TAB PO PRN (15:11)
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
[2019-01-19] MEDS: IPRATROPIUM-ALBUTEROL 3 ML NEB INHALATION SCH ×2 (16:49→20:45)
[2019-01-19 16:52] VITALS: RESP 16
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
[2019-01-19 17:17] LABS: Glucose,Whole Blood 233 mg/dL (75-99)
[2019-01-19] MEDS: INSULIN ASPART (NovoLOG) 100 UNIT/ML VIAL SQ SCH ×2 (17:47→21:13)
[2019-01-19 20:44] LABS: Glucose,Whole Blood 306 mg/dL (75-99)
[2019-01-19] MEDS: SYMBICORT 160-4.5 MCG INHALER INHALATION SCH (20:45)
[2019-01-19] MEDS: guaiFENesin 600 MG TABLET.ER PO SCH (21:12)
[2019-01-19] MEDS: HEPARIN SODIUM,PORCINE 5,000 UNIT/ML 1 ML VIAL SQ SCH (21:14)
[2019-01-20] MEDS: methylPREDNISolone SOD SUCCI 125 MG/2 ML VIAL IV SCH ×3 (00:01→11:42)
[2019-01-20 05:24] VITALS: BP 112/68; TEMP 97.4
[2019-01-20 06:52] LABS: Glucose,Whole Blood 126 mg/dL (75-99)
[2019-01-20] MEDS: INSULIN ASPART (NovoLOG) 100 UNIT/ML VIAL SQ SCH ×2 (07:18→11:42)
[2019-01-20] MEDS ORDERED: PANTOPRAZOLE 40 MG TABLET PO SCH (07:30)
[2019-01-20] MEDS: SYMBICORT 160-4.5 MCG INHALER INHALATION SCH (07:33)
[2019-01-20] MEDS: IPRATROPIUM-ALBUTEROL 3 ML NEB INHALATION SCH ×2 (07:33→11:21)
[2019-01-20] MEDS: guaiFENesin 600 MG TABLET.ER PO SCH (08:02)
[2019-01-20] MEDS: HEPARIN SODIUM,PORCINE 5,000 UNIT/ML 1 ML VIAL SQ SCH (08:03)
[2019-01-20] MEDS ORDERED: ESCITALOPRAM 10 MG TAB PO SCH (09:00)
[2019-01-20] MEDS ORDERED: NICOTINE 21MG/24HR PATCH TRANSDERM SCH (09:00)
[2019-01-20] MEDS ORDERED: MONTELUKAST 10 MG TAB PO SCH (09:00)
[2019-01-20 10:17] LABS: Basophils % (A) 0 %; Eosinophils % (A) 0 %; HCT 43.4 % (39.0-53.0); HGB 13.7 gm/dL (13.0-17.5); Lymphocytes # (A) 0.5 k/uL (1.0-4.8); Lymphocytes % (A) 3 %; MCH 31.5 pg (25.0-35.0); MCHC 31.5 g/dL (31.0-37.0); MCV 99.8 fL (80.0-100.0); Mean Platelet Volume 7.8; Monocytes # (A) 0.2 k/uL (0-1.0); Monocytes % (A) 1 %; Neutrophils # (A) 16.4 k/uL (1.3-7.7); Neutrophils % (A) 96 %; Platelet Count 220 k/uL (150-450); RBC 4.35 m/uL (4.30-5.90); RDW 13.8 % (11.5-15.5); WBC 17.2 k/uL (3.8-10.6)
[2019-01-20 10:35] LABS: African American GFR (CKD) >90 (>60 ml/min/1.73 sqM); Anion Gap 7 mmol/L; Blood Urea Nitrogen 13 mg/dL (9-20); Calcium 8.7 mg/dL (8.4-10.2); Carbon Dioxide 27 mmol/L (22-30); Chloride 109 mmol/L (98-107); Glucose 257 mg/dL (74-99); Potassium 3.8 mmol/L (3.5-5.1); Sodium 143 mmol/L (137-145)
[2019-01-20 11:33] VITALS: PULSE 92
--- NOTE | 2019-01-20 14:02 | P.PN ---
Subjective Progress Note Date: 01/20/19 Principal diagnosis: Acute exacerbation of COPD This is a 48-year-old white male with history of COPD, chronic tobacco dependence syndrome, patient smokes on the average of half pack per day. Known history of esophageal reflux, anxiety, depression, history of cocaine abuse, patient is not compliant with his bronchodilators supposedly he is on Symbicort and Ventolin and he has a nebulizer machine at home which she doesn't use. Patient presented to the ER with a few days' history of increased shortness of breath, cough and wheezing. Cough is productive with yellow phlegm. Denies any fever no chills no hemoptysis and no chest pain. Chest x-ray on admission showed no evidence of active disease. Patient was admitted and this consult was initiated. Patient had a similar presentation back in October of 2017, treated with bronchodilators antibiotics and he was discharged home. His presentation today is extracted a similar to his previous presentation. Again the patient continues to smoke, and he is not compliant with his bronchodilators. Patient was reevaluated today on 01/20/2019, feeling much better, breathing easier, requesting to be discharged home. Patient was advised to be compliant with her medications including the prednisone, antibiotics, bronchodilators, and must stop smoking. Otherwise the patient would end up back in the hospital again is discharged home today. But the patient is requesting to be discharged home today anyway. Told me that he felt significantly improved over the last 24 hours. Objective - Vital Signs Vital signs: Vital Signs Temp 97.4 F L 01/20/19 04:40 Pulse 92 01/20/19 11:32 Resp 16 01/20/19 08:00 BP 112/68 01/20/19 04:40 Pulse Ox 98 01/20/19 04:40 Intake & Output 01/19/19 01/20/19 01/20/19 18:59 06:59 18:59 Intake Total 80 360 Balance 80 360 Weight 101.106 kg Intake: IV 80 ns@20 80 Oral 360 Other: Voiding Method Toilet Toilet # Voids 2 - Exam Physical Exam: Revealed a 48-year-old white male in no distress. Head: Atraumatic, normocephalic. HEENT:[Neck is supple.] [No neck masses.] [No thyromegaly.] [No JVD.] Chest: [Clear throughout, wheezing bilaterally on forced expiratory maneuver only. Cardiac Exam: [Normal S1 and S2, no S3 gallop, no murmur.] Abdomen: [Soft, nontender, no megaly, no rebound, no guarding, normal bowel sounds.] Extremities: [No clubbing, no edema, no cyanosis.] Neurological Exam: [No focal neurologic deficit.] - Labs CBC & Chem 7: 01/20/19 08:46 01/20/19 08:46 Labs: Abnormal Lab Results - Last 24 Hours (Table) 01/19/19 01/19/19 01/20/19 Range/Units 17:10 20:42 06:45 WBC (3.8-10.6) k/uL Neutrophils # (1.3-7.7) k/uL Lymphocytes # (1.0-4.8) k/uL Chloride (98-107) mmol/L Glucose (74-99) mg/dL POC Glucose (mg/dL) 233 H 306 H 126 H (75-99) mg/dL 01/20/19 01/20/19 Range/Units 08:46 08:46 WBC 17.2 H (3.8-10.6) k/uL Neutrophils # 16.4 H (1.3-7.7) k/uL Lymphocytes # 0.5 L (1.0-4.8) k/uL Chloride 109 H (98-107) mmol/L Glucose 257 H (74-99) mg/dL POC Glucose (mg/dL) (75-99) mg/dL Microbiology - Last 24 Hours (Table) 01/19/19 09:45 Blood Culture - Preliminary Blood No Growth after 24 hours Assessment and Plan Assessment: #1 Acute exacerbation of chronic obstructive pulmonary disease. #2 Chronic and ongoing tobacco dependence. #3 History of depression #4 History of cocaine use. #5 History of marijuana use #6 Gastroesophageal reflux disease Recommendation: Patient will be cleared to be discharged home today since he is feeling much better and he is requesting to be discharged home. Patient should be discharged home on prednisone 30 mg tapered over the next 2 weeks. Albuterol with Atrovent updrafts 4 times a day and when necessary, Symbicort 160/4.52 puffs twice a day, doxycycline 100 mg by mouth twice a day, patient must stop smoking, and should have follow-up with me in the next one week post discharge. Time with Patient: Less than 30
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
== END 2019-01-20 13:16 | disposition home or self-care (01) | DRG 192 ==
LOC: EC 08:40 → 4MS4W 11:16
PROVIDERS: ADMIT Hospitalist; ATTEND Hospitalist
DX: J44.1 Chronic obstructive pulmonary disease with (acute) exacerbation (principal); I50.9 Heart failure, unspecified; F17.210 Nicotine dependence, cigarettes, uncomplicated; K21.9 Gastro-esophageal reflux disease without esophagitis; F32.9 Major depressive disorder, single episode, unspecified; F41.9 Anxiety disorder, unspecified; J20.9 Acute bronchitis, unspecified; D72.829 Elevated white blood cell count, unspecified; M16.0 Bilateral primary osteoarthritis of hip; M17.0 Bilateral primary osteoarthritis of knee; Z79.51 Long term (current) use of inhaled steroids; Z79.899 Other long term (current) drug therapy; Z71.6 Tobacco abuse counseling
CPT/HCPCS: 36415; 71046; 80048; 80053; 83735; 83880; 84484; 85025; 85610; 85730; 87040; 93005; 94640; 94760; 96361; 96365; 96375; 99285

== ENCOUNTER 2019-01-30 16:47 | Emergency (ER) | payer OTHER ==
[2019-01-30 17:15] VITALS: TEMP 98.4
[2019-01-30] MEDS ORDERED: IPRATROPIUM-ALBUTEROL 3 ML NEB INHALATION STA (17:33)
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
[2019-01-30 18:11] LABS: Basophils % (A) 0 %; Eosinophils # (A) 0.2 k/uL (0-0.7); Eosinophils % (A) 1 %; HCT 44.3 % (39.0-53.0); HGB 14.3 gm/dL (13.0-17.5); Lymphocytes % (A) 12 %; MCH 30.8 pg (25.0-35.0); MCHC 32.3 g/dL (31.0-37.0); MCV 95.4 fL (80.0-100.0); Mean Platelet Volume 6.6; Monocytes # (A) 0.6 k/uL (0-1.0); Monocytes % (A) 4 %; Neutrophils % (A) 83 %; Platelet Count 347 k/uL (150-450); RBC 4.65 m/uL (4.30-5.90); RDW 13.5 % (11.5-15.5)
[2019-01-30 18:19] LABS: African American GFR (CKD) >90 (>60 ml/min/1.73 sqM); Anion Gap 4 mmol/L; Blood Urea Nitrogen 15 mg/dL (9-20); Calcium 9.1 mg/dL (8.4-10.2); Carbon Dioxide 32 mmol/L (22-30); Chloride 103 mmol/L (98-107); Glucose 62 mg/dL (74-99); Potassium 4.1 mmol/L (3.5-5.1); Sodium 139 mmol/L (137-145)
--- NOTE | 2019-01-30 18:30 | XR ---
EXAMINATION TYPE: XR chest 2V DATE OF EXAM: 01/30/2019 COMPARISON: 01/19/2019 HISTORY: Shortness of breath and chest pain TECHNIQUE: Frontal and lateral views of the chest are obtained. FINDINGS: There is no focal air space opacity, pleural effusion, or pneumothorax seen. Pulmonary hyp erinflation and flattening of the diaphragms with increased retrosternal airspace are indicative of u nderlying COPD. The cardiac silhouette size is within normal limits. The osseous structures are int act. Mild multilevel degenerative changes of the spine are present. IMPRESSION: No acute cardiopulmonary process. Underlying COPD.
--- NOTE | 2019-01-30 20:39 | CT ---
EXAMINATION TYPE: CT chest angio for PE DATE OF EXAM: 01/30/2019 COMPARISON: NONE HISTORY: URSULA. Hx COPD, angina, heart cath. CT DLP: 392.7 mGycm. Automated Exposure Control for Dose Reduction was Utilized. CONTRAST: CTA scan of the thorax is performed with IV Contrast, patient injected with 100 mL of Isovue 370, pul monary embolism protocol. MIP Images are created on CT scanner and reviewed. FINDINGS: LUNGS: There is a groundglass nodular density in the superior segment of the right lower lobe on imag e 90 via lung algorithm measuring 8 mm. Few scattered areas of subsegmental atelectasis are seen. Mil d to moderate centrilobular and paraseptal emphysematous changes. The remaining lungs are grossly skylar ar, there is no concerning parenchymal mass or nodule identified. There is no pleural effusion or p neumothorax seen. The tracheobronchial tree is patent. MEDIASTINUM: There is satisfactory enhancement of the pulmonary artery and its branches, there is no CT evidence for pulmonary embolism. There are no greater than 1 cm hilar or mediastinal lymph nodes. No cardiomegaly. No significant coronary artery calcifications are seen. There is a very trace per icardial effusion is seen anteriorly and inferiorly measuring 5 mm in greatest thickness. Strand-like residual thymic tissue seen in the superior anterior mediastinum. OTHER: Punctate gallbladder calculus is seen. IMPRESSION: 1. No pulmonary embolus. 2. Trace pericardial effusion. 3. Cholelithiasis. 4. Mild to moderate emphysema. 5. Groundglass right lower lobe opacity that may represent a focal area of pneumonitis or subsegmenta l pulmonary nodule. Follow-up is recommended in 3 months to ensure resolution.
[2019-01-30 21:22] VITALS: BP 118/65; PULSE 78; RESP 18
== END 2019-01-30 21:21 | disposition home or self-care (01) ==
LOC: EC 16:47
DX: J40 Bronchitis, not specified as acute or chronic (principal); R79.89 Other specified abnormal findings of blood chemistry; J44.9 Chronic obstructive pulmonary disease, unspecified; K21.9 Gastro-esophageal reflux disease without esophagitis; F41.9 Anxiety disorder, unspecified; F32.9 Major depressive disorder, single episode, unspecified; F17.200 Nicotine dependence, unspecified, uncomplicated; Z95.818 Presence of other cardiac implants and grafts; Z79.899 Other long term (current) drug therapy
CPT/HCPCS: 36415; 94640; 93005; 85379; 83880; 80048; 84484; 85025; 71046; 71275; 99285; Q9967

== ENCOUNTER 2019-10-28 15:30 | Inpatient (IN) | payer MEDICAID, OTHER ==
[2019-10-28 15:58] LABS: Appearance,Urine Clear (Clear); Bilirubin,Urine Negative (Negative); Blood,Urine Negative (Negative); Color,Urine Yellow; Glucose,Urine (UA) Negative (Negative); Ketones,Urine Negative (Negative); Leukocyte Esterase,Urine Negative (Negative); Nitrite,Urine Negative (Negative); Protein,Urine Negative (Negative); Specific Gravity,Urine 1.022 (1.001-1.035); Urobilinogen,Urine <2.0 mg/dL (<2.0)
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
[2019-10-28 16:24] LABS: Amphetamine Screen,Urine Not Detected (NotDetected); Barbiturate Screen,Urine Not Detected (NotDetected); Benzodiazepines Screen,Urine Not Detected (NotDetected); Cocaine Screen,Urine Detected (NotDetected); Methadone Screen, Urine Not Detected (NotDetected); Opiate Screen,Urine Not Detected (NotDetected); Oxycodone Screen, Urine Not Detected (NotDetected); Phencyclidine Screen,Urine Not Detected (NotDetected); Tricyclic Antidepressant,Urine Not Detected (NotDetected); Urn Cannabinoid Scrn Detected (NotDetected)
[2019-10-28] MEDS ORDERED: MAG HYDROX/AL HYDROX/SIMETH 30 ML CUP PO PRN (17:17)
[2019-10-28] MEDS ORDERED: MAGNESIUM HYDROXIDE 2,400 MG/10 ML CUP PO PRN (17:17)
[2019-10-28] MEDS ORDERED: ACETAMINOPHEN TAB 325 MG TAB PO PRN (17:17)
[2019-10-28] MEDS ORDERED: IPRATROPIUM 0.5 MG/2.5 ML NEBU INHALATION PRN (17:20)
[2019-10-28] MEDS ORDERED: ALBUTEROL INHALER 60 PUFF/8 GM INHALER (BULK) INHALATION PRN (17:20)
[2019-10-28] MEDS: NICOTINE 14MG/24HR PATCH TRANSDERM SCH (20:48)
[2019-10-29] MEDS: PANTOPRAZOLE 40 MG TABLET PO SCH (08:11)
[2019-10-29] MEDS: MONTELUKAST 10 MG TAB PO SCH (08:11)
[2019-10-29] MEDS: NICOTINE 14MG/24HR PATCH TRANSDERM SCH ×2 (08:11→19:55)
[2019-10-29] MEDS: ESCITALOPRAM 10 MG TAB PO SCH (08:11)
[2019-10-29 09:00] LABS: Basophils % (A) 0 %; Eosinophils # (A) 0.3 k/uL (0-0.7); Eosinophils % (A) 3 %; HCT 49.7 % (39.0-53.0); HGB 16.2 gm/dL (13.0-17.5); Lymphocytes # (A) 1.4 k/uL (1.0-4.8); Lymphocytes % (A) 17 %; MCH 31.5 pg (25.0-35.0); MCHC 32.7 g/dL (31.0-37.0); MCV 96.5 fL (80.0-100.0); Mean Platelet Volume 7.6; Monocytes # (A) 0.4 k/uL (0-1.0); Monocytes % (A) 6 %; Neutrophils # (A) 5.9 k/uL (1.3-7.7); Neutrophils % (A) 73 %; Platelet Count 279 k/uL (150-450); RBC 5.15 m/uL (4.30-5.90); WBC 8.1 k/uL (3.8-10.6)
[2019-10-29 09:03] LABS: ALT 26 U/L (4-49); AST 35 U/L (17-59); African American GFR (CKD) >90 (>60 ml/min/1.73 sqM); Albumin 3.8 g/dL (3.5-5.0); Alkaline Phosphatase 71 U/L (38-126); Anion Gap 5 mmol/L; Blood Urea Nitrogen 13 mg/dL (9-20); Calcium 9.3 mg/dL (8.4-10.2); Carbon Dioxide 29 mmol/L (22-30); Chloride 103 mmol/L (98-107); Cholesterol 194 mg/dL (<200); Glucose 134 mg/dL (74-99); HDL Cholesterol 59 mg/dL (40-60); LDL Cholesterol,Calculated 97 mg/dL (0-99); Non-African American GFR(CKD) >90 (>60 ml/min/1.73 sqM); Potassium 4.4 mmol/L (3.5-5.1); Sodium 137 mmol/L (137-145); Total Bilirubin 0.8 mg/dL (0.2-1.3); Total Protein 6.4 g/dL (6.3-8.2); Triglycerides 188 mg/dL (<150)
--- NOTE | 2019-10-29 10:54 | P.HP ---
Psychiatric H&P - . History & Physical: Allergies Allergy/AdvReac Type Severity Reaction Status Date / Time No Known Allergies Allergy Verified 10/28/19 17:47 Vital Signs Temp 98.2 F 10/29/19 06:13 Pulse 64 10/29/19 06:13 Resp 15 10/29/19 06:13 BP 106/60 10/29/19 06:13 Pulse Ox 96 10/28/19 17:24 Intake & Output 10/28/19 10/29/19 10/29/19 18:59 06:59 18:59 Weight 100.6 kg Laboratory Last Values WBC 8.1 k/uL (3.8-10.6) 10/29/19 08:24 RBC 5.15 m/uL (4.30-5.90) 10/29/19 08:24 Hgb 16.2 gm/dL (13.0-17.5) 10/29/19 08:24 Hct 49.7 % (39.0-53.0) 10/29/19 08:24 MCV 96.5 fL (80.0-100.0) 10/29/19 08:24 MCH 31.5 pg (25.0-35.0) 10/29/19 08:24 MCHC 32.7 g/dL (31.0-37.0) 10/29/19 08:24 RDW 12.0 % (11.5-15.5) 10/29/19 08:24 Plt Count 279 k/uL (150-450) 10/29/19 08:24 Neutrophils % 73 % 10/29/19 08:24 Lymphocytes % 17 % 10/29/19 08:24 Monocytes % 6 % 10/29/19 08:24 Eosinophils % 3 % 10/29/19 08:24 Basophils % 0 % 10/29/19 08:24 Neutrophils # 5.9 k/uL (1.3-7.7) 10/29/19 08:24 Lymphocytes # 1.4 k/uL (1.0-4.8) 10/29/19 08:24 Monocytes # 0.4 k/uL (0-1.0) 10/29/19 08:24 Eosinophils # 0.3 k/uL (0-0.7) 10/29/19 08:24 Basophils # 0.0 k/uL (0-0.2) 10/29/19 08:24 Sodium 137 mmol/L (137-145) 10/29/19 08:24 Potassium 4.4 mmol/L (3.5-5.1) 10/29/19 08:24 Chloride 103 mmol/L (98-107) 10/29/19 08:24 Carbon Dioxide 29 mmol/L (22-30) 10/29/19 08:24 Anion Gap 5 mmol/L 10/29/19 08:24 BUN 13 mg/dL (9-20) 10/29/19 08:24 Creatinine 0.99 mg/dL (0.66-1.25) 10/29/19 08:24 Est GFR (CKD-EPI)AfAm >90 (>60 ml/min/1.73 sqM) 10/29/19 08:24 Est GFR (CKD-EPI)NonAf >90 (>60 ml/min/1.73 sqM) 10/29/19 08:24 Glucose 134 mg/dL (74-99) H 10/29/19 08:24 Calcium 9.3 mg/dL (8.4-10.2) 10/29/19 08:24 Total Bilirubin 0.8 mg/dL (0.2-1.3) 10/29/19 08:24 AST 35 U/L (17-59) 10/29/19 08:24 ALT 26 U/L (4-49) 10/29/19 08:24 Alkaline Phosphatase 71 U/L (38-126) 10/29/19 08:24 Total Protein 6.4 g/dL (6.3-8.2) 10/29/19 08:24 Albumin 3.8 g/dL (3.5-5.0) 10/29/19 08:24 Triglycerides 188 mg/dL (<150) H 10/29/19 08:24 Cholesterol 194 mg/dL (<200) 10/29/19 08:24 LDL Cholesterol, Calc 97 mg/dL (0-99) 10/29/19 08:24 HDL Cholesterol 59 mg/dL (40-60) 10/29/19 08:24 TSH 0.739 mIU/L (0.465-4.680) 10/29/19 08:24 Urine Color Yellow 10/28/19 15:45 Urine Appearance Clear (Clear) 10/28/19 15:45 Urine pH 6.0 (5.0-8.0) 10/28/19 15:45 Ur Specific [place] 1.022 (1.001-1.035) 10/28/19 15:45 Urine Protein Negative (Negative) 10/28/19 15:45 Urine Glucose (UA) Negative (Negative) 10/28/19 15:45 Urine Ketones Negative (Negative) 10/28/19 15:45 Urine Blood Negative (Negative) 10/28/19 15:45 Urine Nitrite Negative (Negative) 10/28/19 15:45 Urine Bilirubin Negative (Negative) 10/28/19 15:45 Urine Urobilinogen <2.0 mg/dL (<2.0) 10/28/19 15:45 Ur Leukocyte Esterase Negative (Negative) 10/28/19 15:45 Urine Opiates Screen Not Detected (NotDetected) 10/28/19 15:45 Ur Oxycodone Screen Not Detected (NotDetected) 10/28/19 15:45 Urine Methadone Screen Not Detected (NotDetected) 10/28/19 15:45 Ur Propoxyphene Screen Not Detected (NotDetected) 10/28/19 15:45 Ur Barbiturates Screen Not Detected (NotDetected) 10/28/19 15:45 U Tricyclic Antidepress Not Detected (NotDetected) 10/28/19 15:45 Ur Phencyclidine Scrn Not Detected (NotDetected) 10/28/19 15:45 Ur Amphetamines Screen Not Detected (NotDetected) 10/28/19 15:45 U Methamphetamines Scrn Not Detected (NotDetected) 10/28/19 15:45 U Benzodiazepines Scrn Not Detected (NotDetected) 10/28/19 15:45 Urine Cocaine Screen Detected (NotDetected) H 10/28/19 15:45 U Marijuana (THC) Screen Detected (NotDetected) H 10/28/19 15:45 10/29/19 10:44 IDENTIFYING DATA: This patient is a 48-year-old male who was admitted to the mental health unit through the emergency room for suicidal ideation. HPI: The patient presented to the emergency room reporting suicidal thoughts. He informed the nurse that he was having thoughts of jumping into traffic obtaining a gun and shooting himself or hanging himself with an electrical cord. He indicated he was hopeless. He reported depressed mood with anxiety. Appetite has been decreased sleep has been impaired. He does have a history of major depressive disorder he was last on this mental health unit 10/13/2018 with the same presentation. Confounding his presentation he continues to use cocaine alcohol and marijuana on a regular basis. He indicates that he did not comply with the Lexapro upon discharge and he has not been following up with any outpatient mental health services since approximately May. Stressors include poor relationship with girlfriend unemployment lack of financial resources. He states he has anxiety "about life" he reports no panic attacks. He endorses no hypomanic or manic episodes he endorses no auditory or visual hallucinations or specific delusions. PAST PSYCHIATRIC HISTORY: This is the patient's fourth admission to this mental health unit since May 2018 he now has had 5 admissions total. He had a suicide attempts approximately 3 years ago and was hospitalized at [facility] that attempt was via overdose. He has been on Effexor and Zoloft in the past. He states he has not given the Lexapro a fair shot as he has not stayed with it for more than 1-2 weeks at a time. He currently has no outpatient mental health services in place. PMH: COPD, GERD ALLERGIES: NO KNOWN DRUG ALLERGIES MEDICATIONS: Refer to [facility] CHEMICAL DEPENDENCY HISTORY: The patient has been using alcohol consuming a 12 pack at least once to twice a week he reports using cocaine at least weekly and he has ongoing use of marijuana. His urine drug screen was positive for cocaine and marijuana. He indicates that he has been to inpatient chemical dependency treatment numerous times in the past he does not feel motivated to return. He indicates he was on the injectable naltrexone in the past. FAMILY PSYCHIATRIC HISTORY: Unknown, no suicides in the family FAMILY CHEMICAL DEPENDENCY HISTORY: Mother grandfather sister known to have alcohol use disorder SOCIAL HISTORY: The patient is 48 years old he is he has been with his same girlfriend for the last 8 years they reside together with her son. The patient is unemployed he was last working with a [employer] service. He states every time he gets a job he ends up losing it because he makes mistakes. He has a 10th grade education he earned his GED in longterm. He has 1 sister his parents are . He was raised by both parents in the [facility]. Abuse history none reported, legal history includes numerous arrests for DUI and he served one year in longterm no history of violent crimes. MENTAL STATUS EXAM: The patient is a tall thin male appearing older than his stated age he is balding his hair is short on the sides he is dressed in hospital gowns he is cooperative easily directed. He indicates having a depressed mood with hopelessness thoughts and suicidal ideation. He reports no homicidal ideation intent or plan. Apparently he verbalized he had thoughts of smothering his girlfriend however he states he has no intent or plan of doing anything to harm his girlfriend. Speech is fluent spontaneous nonpressured he demonstrates no tangential thinking loose associations or flight of ideas he does not appear hypomanic or manic. He endorses no auditory or visual hallucinations or any specific delusions. There is no observed evidence of psychosis. He is oriented to person place and date he is able to name the days of week backwards. He demonstrates no verbal or physical aggressiveness he demonstrates no involuntary repetitive movements. Affect is constricted throughout the session. STRENGTHS/WEAKNESSES: Strengths: Housing weaknesses: Substance abuse and poor compliance with treatment INTELLECTUAL FUNCTIONING: Average IMPRESSIONS: [] 1. Major depressive disorder recurrent severe without psychosis, cocaine use disorder severe, alcohol use disorder severe, cannabis use disorder moderate PLAN: He patient has been admitted to the mental health unit voluntarily. We reviewed his presenting symptoms and treatment options. We decided to continue the Lexapro at 10 mg daily we will consider titrating to 20 mg during this hospitalization. We discussed the possibility of using naltrexone and he will give this consideration. He wasn't willing to commit to that medication with this initial meeting. He reports no side effects from the Lexapro we discussed the potential benefits and side effects of the medication his questions were answered. He has been seen by internal medicine for routine history and physical exam. Social work will meet with the patient to complete a psychosocial assessment and to begin discharge planning. He is encouraged to consider inpatient chemical dependency treatment but he does not wish to pursue that treatment course. He is encouraged to attend groups we will monitor him for safety we will involve his girlfriend in his treatment and discharge planning via phone if he allows.
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
[2019-10-29 17:21] LABS: Hemoglobin A1C 4.8 % (4.0-6.0)
[2019-10-29] MEDS: LORazepam 1 MG TAB PO PRN (19:55)
[2019-10-30] MEDS: NICOTINE 14MG/24HR PATCH TRANSDERM SCH (08:25)
[2019-10-30] MEDS: ESCITALOPRAM 10 MG TAB PO SCH (08:26)
[2019-10-30] MEDS: PANTOPRAZOLE 40 MG TABLET PO SCH (08:26)
[2019-10-30] MEDS: MONTELUKAST 10 MG TAB PO SCH (08:26)
--- NOTE | 2019-10-30 12:16 | P.PN ---
Subjective Progress Note Date: 10/30/19 Principal diagnosis: Major depressive disorder recurrent severe without psychosis, cocaine use disorder severe, alcohol use disorder severe, cannabis use disorder moderate I reviewed the medical record and interviewed the patient. He is a 48-year-old male admitted voluntarily to psychiatric unit with complaints of depression, suicidal ideation and homicidal ideation. He continues to feel hopeless, helpless and worthless. He described continued suicidal thoughts and wishes but denied intent or plan. He was distressed by the homicidal thoughts that he experiences before he came in hospital (he talked about having thoughts to smother his girlfriend with a pillow). 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 He reports no change in his symptoms since admission. Objective - Vital Signs Vital signs: Vital Signs Temp 97.7 F 10/30/19 06:14 Pulse 61 10/30/19 06:14 Resp 14 10/30/19 06:14 BP 109/68 10/30/19 06:14 Pulse Ox 96 10/28/19 17:24 - Exam He presented as a tall 48-year-old male with male pattern balding. He made eye contact and attended to the interview. He had no distinguishing features are prominent physical abnormalities. He had a depressed facial expression. He was alert and oriented to person, place and time. He showed psychomotor retardation but no abnormal movements. His speech was spontaneous with decreased rate and rhythm. He had no articulation difficulties. His affect was depressed, anxious and unreactive. He describes suicidal ideation, wishes but denied current homicidal ideation. He expressed continued depressive cognitions such as hopelessness, helplessness and worthlessness. He ruminated about the depressive symptoms, suicidal thoughts and the general impairment in functioning. He did not express ideas reference, paranoid ideation or delusional thoughts. His thinking was abstract and associations were coherent and logical. He denied hallucinations and did not appear to be responding to internal stimuli. - Labs CBC & Chem 7: 10/29/19 08:24 10/29/19 08:24 Assessment and Plan Assessment: He is seriously mentally ill and minimally improve from admission. He continues to described symptoms of major depressive disorder and continued suicidal ideation and wishes. Plan: Continue Lexapro 10 mg daily and titrated according to clinical response and tolerance, continue Ativan 1 mg by mouth 3 times a day when necessary for anxiety, nicotine replacement for smoking cessation. Encourage participation in therapeutic groups and activities. Evaluate clinical status and response to treatment daily basis.
[2019-10-31] MEDS: PANTOPRAZOLE 40 MG TABLET PO SCH (08:09)
[2019-10-31] MEDS: NICOTINE 14MG/24HR PATCH TRANSDERM SCH (08:09)
[2019-10-31] MEDS: ESCITALOPRAM 10 MG TAB PO SCH (08:09)
[2019-10-31] MEDS: MONTELUKAST 10 MG TAB PO SCH (08:09)
--- NOTE | 2019-10-31 13:37 | P.PN ---
Subjective Progress Note Date: 10/31/19 Principal diagnosis: Major depressive disorder recurrent severe without psychosis, cocaine use disorder severe, alcohol use disorder severe, cannabis use disorder moderate I reviewed the medical record and attempted to interview the patient. He would not get out of bed for the interview. He stated that there is no change and is no reason to talk. He remains depressed and hopeless. Objective - Vital Signs Vital signs: Vital Signs Temp 98.6 F 10/31/19 06:16 Pulse 75 10/31/19 08:16 Resp 14 10/31/19 06:16 BP 106/63 10/31/19 06:16 Pulse Ox 97 10/31/19 08:16 - Exam He presented as a tall 48-year-old male who was guarded and irritable. He made eye contact but was unwilling to engage in interview. He showed psychomotor retardation but no abnormal movements. Speech was not spontaneous and had decreased rate, volume and rhythm. His affect was depressed and not reactive. Express feelings of hopelessness, helplessness and worthlessness but did not express clear suicidal ideation or wishes. He did not express ideas reference, paranoid ideation or delusions. Her thinking was concrete but his associations were coherent and logical. He did not appear to be responding to internal stimuli. - Labs CBC & Chem 7: 10/29/19 08:24 10/29/19 08:24 Assessment and Plan Assessment: He is seriously mentally ill and minimally improve from admission. He continues to described symptoms of major depressive disorder and continued suicidal ideation and wishes. Plan: Continue inpatient hospitalization due to severity of the depressive symptoms and suicidal ideation. Continues precautions. Continue Lexapro 10 mg daily and titrated according to response and tolerance. continue Ativan 1 mg by mouth 3 times a day when necessary for anxiety, nicotine replacement for smoking cessation. Encourage participation in therapeutic groups and activities. Evaluate clinical status and response to treatment daily basis.
[2019-10-31] MEDS: LORazepam 1 MG TAB PO PRN (19:10)
[2019-11-01] MEDS: MONTELUKAST 10 MG TAB PO SCH (08:19)
[2019-11-01] MEDS: ESCITALOPRAM 10 MG TAB PO SCH (08:19)
[2019-11-01] MEDS: NICOTINE 14MG/24HR PATCH TRANSDERM SCH (08:19)
[2019-11-01] MEDS: PANTOPRAZOLE 40 MG TABLET PO SCH (08:19)
--- NOTE | 2019-11-01 09:26 | P.PN ---
Progress Note - Text Interval history: The patient is found in the hallway he follows me to an interview room. He reports his mood continues to be depressed. He states he feels useless hopeless and reports having suicidal thoughts this morning upon awakening. He reports making no phone calls. He states he doesn't want to return home right now. He states he wants social work to find some resources so that he can go to long-term chemical dependency unit. We discussed that we can explore that but it seems unlikely at this time we would get him placed directly from here. He is instructed to call the access line and at least consider a shorter term rehab if that is available. We reviewed his psychotropic medications. We decided we would add Wellbutrin XL as an augmentation strategy for his depression. He has not been on that medication before. He reports no history of seizures. We discussed potential benefits and side effects of Wellbutrin and his questions were answered. Mental status exam: The patient is a tall thin male he is dressed in hospital gowns has a disheveled appearance. Eye contact is appropriate speech is fluent spontaneous nonpressured. He reports a depressed mood he feels hopeless useless he reports having suicidal thoughts during the course of the weekend and this morning. He indicates that he feels safe in her treatment environment however. He states he has no intent or plan of acting on suicidal thoughts here in the hospital. He reports no homicidal ideation intent or plan. He demonstrates no verbal or physical aggressiveness he demonstrates no involuntary repetitive movements. Insight and judgment limited. He is oriented to person place and date. He maintains a bland affect throughout the session. Plan: The patient will continue on the last for 10 mg daily we will augment with Wellbutrin XL 150 mg in the morning. He is encouraged to continue participating in groups we will monitor him for safety. He is instructed to call the access line to begin the process for placement in inpatient chemical dependency treatment. Vital signs reviewed.
[2019-11-01] MEDS: buPROPion XL 150 MG TAB.ER.24H PO SCH (09:57)
[2019-11-01] MEDS: LORazepam 1 MG TAB PO PRN (20:32)
[2019-11-02 06:50] VITALS: BP 125/67; PULSE 62; RESP 16
[2019-11-02] MEDS: PANTOPRAZOLE 40 MG TABLET PO SCH (08:13)
[2019-11-02] MEDS: NICOTINE 14MG/24HR PATCH TRANSDERM SCH (08:13)
[2019-11-02] MEDS: MONTELUKAST 10 MG TAB PO SCH (08:13)
[2019-11-02] MEDS: ESCITALOPRAM 10 MG TAB PO SCH (08:13)
[2019-11-02] MEDS: buPROPion XL 150 MG TAB.ER.24H PO SCH (08:13)
--- NOTE | 2019-11-02 10:59 | P.DS ---
Providers Date of admission: 10/28/19 17:06 Expected date of discharge: 11/03/19 Attending physician: Keyshawn Marie Consults: 10/28/19 17:17 Consult Physician Routine Consulting Provider: Pam Patel Consult Reason/Comments: H & P and medical care Do you want consulting provider notified?: Yes Primary care physician: Val Concepcion - Discharge Diagnosis(es) (1) Major depressive disorder, recurrent severe without psychotic features Current Visit: Yes Status: Acute Priority: High (2) Cocaine use disorder, severe, dependence Current Visit: Yes Status: Acute Priority: High (3) Alcohol use disorder, severe, dependence Current Visit: No Status: Acute Priority: High (4) Cannabis use disorder, mild, abuse Current Visit: No Status: Acute Priority: Low Hospital Course: Brief summary of admission note: This patient is a 48-year-old male who was admitted to the mental health unit through the emergency room for suicidal ideation. He informed the nurse that he is having thoughts of jumping into traffic or obtaining a gun to shoot himself. He reportedly felt hopeless. He indicated having depressed mood with anxiety. Appetite was reportedly decreased sleep had been decreased. Confounding his presentation the patient has been using cocaine alcohol and marijuana. He had not been compliant with the Lexapro that was given to him upon discharge after his last hospitalization. He had not been following up with outpatient mental health services. Stressors include poor relationship with girlfriend unemployment. For full details please refer to my psychiatric evaluation dated 10/29/2019. Summary of hospital course: The patient was admitted to the mental health unit voluntarily. We reviewed his presenting symptoms and treatment options. We dec ided to initiate the Lexapro again 10 mg daily. Later we also added Wellbutrin XL as an augmentation strategy. He has been tolerating the medications well without any reported side effects. He was seen by internal medicine for routine history and physical exam. Social work has met with the patient to complete a psychosocial assessment and for discharge planning purposes. Initially he was not agreeable to going to inpatient chemical dependency treatment but during the course of the hospitalization he changed his mind. Yesterday he called the access line and was accepted at [facility] with a start date of tomorrow morning. We discussed using naltrexone but he would like to defer that until he goes to inpatient chemical dependency treatment. The patient selectively attended groups he reported a progressive improvement of symptoms while here. He feels safe going to rehab as it is a structured environment that is treatment focused. He reports no acute suicidal ideation intent or plan he reports future oriented thinking. Mental status exam: The patient is a tall thin male he is dressed in his own clothing hygiene grooming adequate eye contact is appropriate speech is fluent and spontaneous nonpressured. He indicates his mood is better he is feeling more hopeful. He is reporting no hopelessness thinking he is reporting no suicidal ideation intent or plan. He reports no homicidal ideation intent or plan. He reports no auditory or visual hallucinations or any specific delusions there is no observed evidence of psychosis. He demonstrates no tangential thinking loose associations or flight of ideas he does not appear hypomanic or manic. He demonstrates no verbal or physical aggressiveness he demonstrates no involuntary repetitive movements. Affect is euthymic and appropriately expressive. Insight and judgment have improved. He remains oriented to person place and date. He is able to provide specific examples of future oriented thinking. Specifically he states he wants to complete rehab he is considering a move closer to the [facility] and wants to obtain employment. Impressions 1. Major depressive disorder recurrent severe without psychosis, cocaine use disorder severe, alcohol use disorder severe, cannabis use disorder mild to moderate Plan: The patient will be discharged early tomorrow morning from the mental health unit. He will be taken by cab to [facility] where representatives from [facility] will pick him up and transport him to [facility] for inpatient chemical dependency treatment. The patient will continue on Lexapro 10 mg daily we will titrate the Wellbutrin XL to 300 mg in the morning. He is instructed to abstain from any use of alcohol marijuana or any illicit drugs Aziz well in his safety risk. At this time there is no imminent safety risk he is appropriate for transition inpatient chemical dependency treatment. He is instructed to return to the hospital with any acute safety concerns. We dis cussed initiating naltrexone but he would like to defer that option until he addresses that with staff at the rehab center. Patient Condition at Discharge: Stable Plan - Discharge Summary Discharge Rx Participant: No New Discharge Prescriptions: New Nicotine 14Mg/24Hr Patch [Habitrol] 1 patch TRANSDERM DAILY #14 patch buPROPion XL [Wellbutrin Xl] 300 mg PO DAILY #30 tab.er.24h Continue Montelukast [Singulair] 10 mg PO DAILY Omeprazole 20 mg PO DAILY Albuterol Inhaler [Ventolin Hfa Inhaler] 2 puff INHALATION RT-Q6H PRN PRN Reason: Shortness Of Breath Ipratropium [place] [Atrovent Hfa] 2 puff INHALATION RT-QID PRN PRN Reason: Shortness Of Breath Escitalopram [Lexapro] 10 mg PO DAILY #30 tab Discontinued Albuterol Nebulized [Ventolin Nebulized] 2.5 mg INHALATION RT-TID PRN PRN Reason: Shortness Of Breath Discharge Medication List Montelukast [Singulair] 10 mg PO DAILY 01/30/19 [History] Albuterol Inhaler [Ventolin Hfa Inhaler] 2 puff INHALATION RT-Q6H PRN 10/28/19 [History] Ipratropium [place] [Atrovent Hfa] 2 puff INHALATION RT-QID PRN 10/28/19 [History] Omeprazole 20 mg PO DAILY 10/28/19 [History] Escitalopram [Lexapro] 10 mg PO DAILY #30 tab 11/02/19 [Rx] Nicotine 14Mg/24Hr Patch [Habitrol] 1 patch TRANSDERM DAILY #14 patch 11/02/19 [Rx] buPROPion XL [Wellbutrin Xl] 300 mg PO DAILY #30 tab.er.24h 11/02/19 [Rx] Follow up Appointment(s)/Referral(s): Val Concepcion MD [Primary Care Provider] - 1-2 days Activity/Diet/Wound Care/Special Instructions: Activity and diet as tolerated. Avoid the use of street drugs and alcohol. Take all medications as prescribed. When you are in need of refills on your medications please contact your medical provider and/or outpatient psychiatrist to have this done. Please go to scheduled outpatient appointment for aftercare treatment. If symptoms return or become worse, call the crisis line at and/or go to the nearest emergency room for evaluation.
[2019-11-02 19:14] VITALS: TEMP 98.6
[2019-11-03] MEDS: buPROPion XL 150 MG TAB.ER.24H PO SCH (07:26)
[2019-11-03] MEDS: PANTOPRAZOLE 40 MG TABLET PO SCH (07:26)
[2019-11-03] MEDS: MONTELUKAST 10 MG TAB PO SCH (07:27)
[2019-11-03] MEDS: ESCITALOPRAM 10 MG TAB PO SCH (07:27)
[2019-11-03] MEDS: NICOTINE 14MG/24HR PATCH TRANSDERM SCH (07:27)
== END 2019-11-03 08:15 | disposition home or self-care (01) | DRG 885 ==
LOC: EC 15:30 → 3MHU 17:06
PROVIDERS: ADMIT Psychiatry & Neurology Psychiatry; ATTEND Psychiatry & Neurology Psychiatry
DX: F33.2 Major depressive disorder, recurrent severe without psychotic features (principal); F14.20 Cocaine dependence, uncomplicated; R45.851 Suicidal ideations; F10.20 Alcohol dependence, uncomplicated; F12.10 Cannabis abuse, uncomplicated; F17.200 Nicotine dependence, unspecified, uncomplicated; F41.9 Anxiety disorder, unspecified; J44.9 Chronic obstructive pulmonary disease, unspecified; K21.9 Gastro-esophageal reflux disease without esophagitis; M16.0 Bilateral primary osteoarthritis of hip; Z79.899 Other long term (current) drug therapy; Z56.0 Unemployment, unspecified; Z81.1 Family history of alcohol abuse and dependence
CPT/HCPCS: 80053; 80061; 80306; 81003; 82075; 83036; 84443; 85025; 99285

== ENCOUNTER 2020-09-08 12:11 | Inpatient (IN) | payer MEDICAID, OTHER ==
[2020-09-08] MEDS ORDERED: IPRATROPIUM-ALBUTEROL 3 ML NEB INHALATION STA ×2 (12:35→15:57)
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
[2020-09-08 12:55] LABS: Basophils % (A) 0 %; Eosinophils # (A) 0.1 k/uL (0-0.7); Eosinophils % (A) 1 %; HCT 46.3 % (39.0-53.0); HGB 15.7 gm/dL (13.0-17.5); Lymphocytes % (A) 12 %; MCHC 33.9 g/dL (31.0-37.0); MCV 94.5 fL (80.0-100.0); Mean Platelet Volume 7.5; Monocytes # (A) 0.4 k/uL (0-1.0); Monocytes % (A) 5 %; Neutrophils % (A) 82 %; Platelet Count 216 k/uL (150-450); WBC 8.6 k/uL (3.8-10.6)
[2020-09-08 12:56] LABS: Appearance,Urine Clear (Clear); Bilirubin,Urine Negative (Negative); Blood,Urine Negative (Negative); Color,Urine Yellow; Glucose,Urine (UA) Negative (Negative); Ketones,Urine 1+ (Negative); Leukocyte Esterase,Urine Negative (Negative); Nitrite,Urine Negative (Negative); Protein,Urine Negative (Negative); Specific Gravity,Urine 1.018 (1.001-1.035); Urobilinogen,Urine <2.0 mg/dL (<2.0)
[2020-09-08] MEDS ORDERED: ALBUTEROL HFA INHALER INHALATION ONE (13:00)
[2020-09-08 13:08] LABS: ALT 34 U/L (4-49); AST 40 U/L (17-59); African American GFR (CKD) >90 (>60 ml/min/1.73 sqM); Albumin 4.2 g/dL (3.5-5.0); Alkaline Phosphatase 83 U/L (38-126); Anion Gap 7 mmol/L; Blood Urea Nitrogen 16 mg/dL (9-20); Calcium 9.5 mg/dL (8.4-10.2); Carbon Dioxide 26 mmol/L (22-30); Chloride 103 mmol/L (98-107); Glucose 135 mg/dL (74-99); Non-African American GFR(CKD) 87 (>60 ml/min/1.73 sqM); Sodium 136 mmol/L (137-145); Total Bilirubin 0.9 mg/dL (0.2-1.3); Total Protein 6.9 g/dL (6.3-8.2)
[2020-09-08 13:09] LABS: Amphetamine Screen,Urine Not Detected (NotDetected); Barbiturate Screen,Urine Not Detected (NotDetected); Benzodiazepines Screen,Urine Not Detected (NotDetected); Cocaine Screen,Urine Detected (NotDetected); Methadone Screen, Urine Not Detected (NotDetected); Opiate Screen,Urine Not Detected (NotDetected); Oxycodone Screen, Urine Not Detected (NotDetected); Phencyclidine Screen,Urine Not Detected (NotDetected); Tricyclic Antidepressant,Urine Not Detected (NotDetected); Urn Cannabinoid Scrn Detected (NotDetected)
[2020-09-08 13:12] LABS: D-Dimer 0.39 mg/L FEU (<0.60); Partial Thromboplastin Time 24.3 sec (22.0-30.0); Prothrombin Time 10.7 sec (9.0-12.0)
--- NOTE | 2020-09-08 13:40 | XR ---
EXAMINATION TYPE: XR chest 2V DATE OF EXAM: 09/08/2020 COMPARISON: Chest x-ray 01/30/2019, CT 01/30/2019 HISTORY: Difficulty breathing, dyspnea TECHNIQUE: Frontal and lateral views of the chest are obtained on 3 images. FINDINGS: There is no focal air space opacity, pleural effusion, or pneumothorax seen. The cardiac silhouette size is within normal limits. Increased AP diameter chest and retrosternal airspace, relat alexandro flattening of the hemidiaphragms to be indicative of underlying COPD. The osseous structures are intact. IMPRESSION: No acute cardiopulmonary process. Emphysema.
[2020-09-08] MEDS ORDERED: methylPREDNISolone SOD SUCCI 125 MG/2 ML VIAL IV STA (15:19)
[2020-09-08] MEDS ORDERED: ACETAMINOPHEN TAB 325 MG TAB PO PRN (16:51)
[2020-09-08] MEDS ORDERED: LORazepam 1 MG TAB PO PRN (16:51)
[2020-09-08] MEDS ORDERED: MAGNESIUM HYDROXIDE 2,400 MG/10 ML CUP PO PRN (16:51)
[2020-09-08] MEDS ORDERED: IPRATROPIUM 0.5 MG/2.5 ML NEBU INHALATION PRN (16:55)
[2020-09-08] MEDS ORDERED: LORazepam 2 MG/ML INJ IM PRN (16:56)
[2020-09-08] MEDS ORDERED: HALOPERIDOL LACTATE 5 MG/ML 1 ML VIAL IM PRN (19:43)
[2020-09-08] MEDS: MAG HYDROX/AL HYDROX/SIMETH 30 ML CUP PO PRN (20:47)
[2020-09-08] MEDS ORDERED: HALOPERIDOL LACTATE 5 MG/ML 1 ML VIAL IM SCH (22:00)
[2020-09-09] MEDS: MONTELUKAST 10 MG TAB PO SCH (08:59)
[2020-09-09 09:23] LABS: Basophils % (A) 0 %; Eosinophils % (A) 0 %; HCT 49.9 % (39.0-53.0); HGB 16.7 gm/dL (13.0-17.5); Lymphocytes # (A) 1.1 k/uL (1.0-4.8); Lymphocytes % (A) 7 %; MCHC 33.5 g/dL (31.0-37.0); MCV 95.6 fL (80.0-100.0); Mean Platelet Volume 7.8; Monocytes # (A) 0.7 k/uL (0-1.0); Monocytes % (A) 4 %; Neutrophils # (A) 13.7 k/uL (1.3-7.7); Neutrophils % (A) 88 %; Platelet Count 263 k/uL (150-450); RBC 5.22 m/uL (4.30-5.90); RDW 12.5 % (11.5-15.5); WBC 15.6 k/uL (3.8-10.6)
[2020-09-09 09:33] LABS: ALT 33 U/L (4-49); AST 34 U/L (17-59); African American GFR (CKD) >90 (>60 ml/min/1.73 sqM); Albumin 4.4 g/dL (3.5-5.0); Alkaline Phosphatase 71 U/L (38-126); Anion Gap 9 mmol/L; Blood Urea Nitrogen 16 mg/dL (9-20); Calcium 9.4 mg/dL (8.4-10.2); Carbon Dioxide 26 mmol/L (22-30); Chloride 104 mmol/L (98-107); Cholesterol 197 mg/dL (<200); Glucose 105 mg/dL (74-99); HDL Cholesterol 82 mg/dL (40-60); LDL Cholesterol,Calculated 100 mg/dL (0-99); Non-African American GFR(CKD) >90 (>60 ml/min/1.73 sqM); Potassium 4.6 mmol/L (3.5-5.1); Sodium 139 mmol/L (137-145); Total Bilirubin 0.7 mg/dL (0.2-1.3); Total Protein 7.2 g/dL (6.3-8.2); Triglycerides 75 mg/dL (<150)
[2020-09-09 13:43] LABS: Hemoglobin A1C 5.2 % (4.0-6.0)
[2020-09-09 16:56] LABS: Appearance,Urine Clear (Clear); Bilirubin,Urine Negative (Negative); Blood,Urine Negative (Negative); Color,Urine Yellow; Glucose,Urine (UA) Negative (Negative); Hyaline Casts,Urine 1 /lpf (0-2); Ketones,Urine Negative (Negative); Leukocyte Esterase,Urine Negative (Negative); Mucus,Urine Rare /hpf; Nitrite,Urine Negative (Negative); Protein,Urine 1+ (Negative); RBC,Urine 1 /hpf (0-5); Urobilinogen,Urine <2.0 mg/dL (<2.0); WBC,Urine 1 /hpf (0-5)
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
[2020-09-09] MEDS: predniSONE 20 MG TAB PO SCH (18:32)
[2020-09-09] MEDS ORDERED: OLANZapine 5 MG TAB PO ONE (19:15)
[2020-09-09] MEDS: ALBUTEROL INHALER 60 PUFF/8 GM INHALER (MHU) INHALATION PRN (19:48)
[2020-09-09] MEDS: MAG HYDROX/AL HYDROX/SIMETH 30 ML CUP PO PRN (19:48)
--- NOTE | 2020-09-09 20:45 | HP ---
DATE OF SERVICE: 09/09/2020 HISTORY AND PHYSICAL IDENTIFYING DATA: The patient is a 49-year-old male. He resides with his girlfriend. He presented to the ED for evaluation. CHIEF COMPLAINT: The patient was depressed. He had suicide thoughts with plans. He had significant substance use issues. HISTORY OF PRESENTING ILLNESS: Patient has had long-term psychiatric and substance abuse problems. He has had a number of psychiatric admissions. His last admission here [facility] was October 29, 2019. He has had a number of previous admissions here as well. He has also had substance abuse treatment. In October, he was admitted for depression with suicidal thinking. He had a number of plans to do himself in. He had ongoing use of cocaine, alcohol and marijuana. Psychotropic medications that he was discharged on from that admission includes: Wellbutrin XL 300 mg a day and Lexapro 10 mg a day. Following that admission, he went to [facility]. He said that for the most part he was free of abusive substances for 6 months though he acknowledges that he smokes marijuana at least 2-3 times a week, though he minimizes the amount that he smoked. He notes that in the Fall probably in May, he got back into drinking, using crack cocaine and [place]. He started using those regularly. He continued with his psychotropic medications for a period of time, though in the last month did not go back for a followup appointment and such has been off those medications. He notes that in the last 3 weeks, he got into a very heavy binge use of those abusive substances. He said when he does that, it usually leads him to the point where he gets very intense in depression and having thoughts of self harm. He recognized that he needed to come into the hospital as otherwise it was likely to lead to bad outcome. He states that in the past he had been sober for about 10 years from [id number]. He notes that substance abuse issues is a very strong issue in his family. His sister within the last year at age 50, her likely was related to heroin. He notes 3 cousins that have from substance abuse issues. There have been other family members as well that have had substance abuse problems. The patient notes that for a long time he might hear his name being called. The thoughts are fairly vague and nothing persistent or intrusive. Beyond that, he does not really identify any auditory hallucinations. At times when he is using drugs, he may have peripheral visions that are vague, though otherwise he does not clearly identify issues of hallucinations or delusional thinking. He does not identify paranoid thinking. He is not clearly aware that he struggles from posttraumatic issues, though he acknowledges that he has had some significant past issues in his life that can haunt him at times. He has significant anxiety, though does not clearly identify panic attacks. Sleep has been down. He has loss of motivation energy and interest. He notes that even during periods where he has been free of abusive substances, he may not clearly feel depressed, though he has very little interest in things. He says that things just feel "blah" for him. He has not had significant withdrawal issues such as delirium tremens or seizure. He is not currently taking any psychotropic medications. He is admitted for further evaluation. SUBSTANCE USE HISTORY: As above. PAST MEDICAL HISTORY: The patient has had angina, COPD, GERD and arthritis. 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 He was and has a daughter age 28. He is . He has been living with his girlfriend. He notes that his girlfriend does have some substance use issues with pills. MENTAL STATUS EXAM: Patient gave fairly good eye contact. He was somewhat restless. He answered questions appropriately. His thoughts were clear, coherent, and goal directed. He was spontaneous and interactive. His affect was a little constricted though he did show fairly good range of motion. His mood was dysphoric. He had a worried manner. He was significantly distressed. There was no indication of thought disorder. He denied thoughts of harm at the time that he was interviewed. On cognitive exam, he was oriented x3 and alert. Recent and remote memory was intact. He could recall 2 out of 3 objects in 4 minutes. He could give the days of the week in reverse order without difficulty. He could do serial subtraction. Insight and judgment were fair. Fund of knowledge was average or somewhat above average. PHYSICAL EXAM: As per medical consultation. ASSESSMENT: This 49-year-old male is diagnosed with recurrent depression, depression is likely secondary to or exacerbated by long-term substance use issues. He is in acute withdrawal. Psychosocial stressors are uncertain beyond his heavy drug use of late. DIAGNOSES: 1. Major depression, chronic and recurrent, severe. 2. Polysubstance dependence. 3. Acute substance withdrawal. 4. Angina. 5. Chronic obstructive pulmonary disease. 6. Gastroesophageal reflux disease. 7. Osteoarthritis. RECOMMENDATIONS: Patient will be admitted for comprehensive medical psychiatric and psychosocial evaluation. We will engage the patient in individual and group therapeutic activities. I will start the patient on Zyprexa 5 mg 3 times a day. The aim of Zyprexa is to help reduce physiologic stress response relating to acute substance withdrawal. I had an extensive discussion with the patient regarding withdrawal issues and long-term treatment issues. We discussed the time course and expectations of early withdrawal over the next 6-12 weeks. I discussed that long-term antidepressants may be beneficial, though they are not likely to have a much benefit at all in the first 6 or 8 weeks of withdrawal. We discussed issues relating to long-term recovery and in regard to that, that dopamine issues may take 6-12 months for recovery. Beyond the point of stabilizing a mood disorder, I strongly encouraged the patient to stay away from all abusive substances including marijuana. Patient initially acknowledged that he saw that as somewhat different than other abusive substances, though recognized in the course of our discussion that it has likely been as problematic as anything else. We will focus on stabilization and discharge planning. MATTHEW / FABRICION: [id number] / RYANNE
[2020-09-09] MEDS: OLANZapine 5 MG TAB PO SCH (20:56)
[2020-09-10] MEDS: OLANZapine 5 MG TAB PO SCH ×3 (08:11→20:29)
[2020-09-10] MEDS: predniSONE 20 MG TAB PO SCH (08:11)
[2020-09-10] MEDS: MONTELUKAST 10 MG TAB PO SCH (08:11)
[2020-09-10] MEDS: PANTOPRAZOLE 40 MG TABLET PO SCH (08:11)
--- NOTE | 2020-09-10 14:42 | PN ---
PROGRESS NOTE DATE OF SERVICE: 09/10/2020. CHIEF COMPLAINT: The patient was depressed. He had suicide thoughts with plans. He had significant substance use issues. INTERVAL HISTORY: Patient has been doing fair. He had a quiet day yesterday. He comes out on the unit. He wanders about. He seems to be comfortable in the milieu. He interacts with others. He did not attend groups yesterday. He said he slept fairly well last night. Today he has been up. Overall, he seems to be doing about the same. He can be seen in the milieu where he seems comfortable in a group setting. He will be in the day area watching TV with others. His CIWA scores have been essentially 0. Since admission his highest score was 4. Vital signs have been stable in the normal range. His vital signs this morning at 6:15 am include BP 99/61, pulse 52 and regular, temp 97, respirations 18. When I reviewed withdrawal issues with the patient, he seemed to not be showing significant issues with withdrawal symptoms. He does note some irritable mood and anxiety, though he seems to be managing reasonably well. He said he had a conversation with his girlfriend. He noted that initially in the conversation there was some irritability between the 2. He acknowledged that he is not very open in terms of talking about himself and his issues. He says the conversation went on. They seemed to have a fairly good interaction. He noted no significant problems or concerns when I talked to him. He tolerates his psychotropic medications. MENTAL STATUS: Patient sat without restlessness. Eye contact was fair. He answered questions with direct responses. His thoughts were clear and coherent. He tended to be on the quiet side. He was not spontaneous or interactive. His affect was somewhat constricted though he did show some emotional reactivity. His mood was reserved though not clearly down or depressed. He did not appear to be significantly distressed. There was no indication for thought disorder. There was no thoughts of harm. Cognition was clear. ASSESSMENT: I will continue the current diagnosis and treatment plan. I will continue psychotropic medications the same namely Zyprexa 5 mg 3 times a day. I had an extensive discussion with the patient regarding withdrawal issues. I had discussed that my recommendation is for the next 6 weeks to focus solely on alcohol withdrawal and managing withdrawal symptoms. We discussed that long-term he might benefit from antidepressants for mood disorder, though noted that antidepressants have little or no benefit in the first 6 weeks of alcohol withdrawal. I provided him with a handout in regards to a discussion on withdrawal and on pharmacologic interventions to help manage early withdrawal. I discussed inpatient versus outpatient followup options. We will focus on stabilization and discharge planning. MATTHEW / MATT: [id number] /
[2020-09-11] MEDS: PANTOPRAZOLE 40 MG TABLET PO SCH (08:39)
[2020-09-11] MEDS: MONTELUKAST 10 MG TAB PO SCH (08:39)
[2020-09-11] MEDS: OLANZapine 5 MG TAB PO SCH (08:39)
[2020-09-11] MEDS: predniSONE 20 MG TAB PO SCH (08:39)
[2020-09-11] MEDS: ALBUTEROL INHALER 60 PUFF/8 GM INHALER (MHU) INHALATION PRN (08:40)
[2020-09-11] MEDS ORDERED: traZODone HCL 50 MG TAB PO PRN (09:36)
[2020-09-11] MEDS ORDERED: LORazepam 1 MG TAB PO PRN (09:44)
--- NOTE | 2020-09-11 09:44 | P.PN ---
Progress Note - Text Progress Note Date: 09/11/20 Interval History: Patient was seen wandering the hallways and was directable and agreeable to sp [place] with law writer in the office. [patient appeared to be fairly cooperative with the law writer today and spoke about his weekend. He states that he is feeling better today in terms of his mood and anxiety. He is denying any withdrawal symptoms at this time or any withdrawal seizures or tremors He states that he does not have a history of alcohol withdrawal complicated. He claims that last night he is able to sleep however believes that he is sleeping "too much". He also claimed that he is feeling tired throughout the day and stated that it may be from the medications]. he states that he is going to groups and try to participate as best as he can. He states that he isn't speaking to his about quitting substances and states that he was feeling very depressed for the past 2 weeks. He states that he also has been off of his Lexapro and Wellbutrin and wants to get restarted on his antidepressant. He claims of fair appetite at this time. At this time patient denies any suicidal or homical ideations, intent or plan. Patient denies any auditory, visual hallucinations and denies any paranoia or delusions. Patient denies any side effects from the medications and has been compliant with meds. Mental Status Exam: General Appearance: Patient appears to be stated age is alert, directable, and cooperative. improving hygiene and grooming. Behavior: [Patient is calmly seated without any agitated behavior.] Speech: Patient's speech is fluent and nonpressured. Mood/Affect: Mood is depressed however,improving mildly, affect is congruent and constricted. Suicidality/Homicidality: Patient denies having any suicidal or homicidal ideation intent or plan. Perceptions: Patient denies any visual hallucinations [and denies any auditory hallucinations] Though content/process: There is no evidence of any delusional thought content and thought process is linear and goal-directed. Memory and concentration: AOX3, grossly intact for the purposes of this session Judgment and insight: Improving mildly Assessment major depressive disorder, chronic and recurrent, severe Alcohol use disorder Cocaine abuse Cannabis use disorder Opiate abuse Nicotine dependence Plan: -Patient continues to meet criteria for inpatient psychiatric admission for symptom stabilization and safety. Patient has signed [adult voluntary form and] medication consent and was placed in patient's chart. -Medications: decrease Zyprexa to 5 mg daily at bedtimeand plan to continue titrating off. Patient is agreeable to start trazodone 50 mg daily at bedtime when necessary for insomnia. Restarted on Lexapro 10 mg daily for mood/anxiety. -Thiamine, folic acid, multivitamin for alcohol use. Continue to monitor withdrawal symptoms. -When necessary Ativan and Haldol for agitation/aggression. -NRT - nicotine patch -SW on board for discharge planning. Encouraged the patient to participate in milieu. patient apparently has a intake date at [facility] on Friday at 10 AM and is planning on going. weld lay out worker to speak with patient's about potential discharge tomorrow and ensure safety in the home environment and make sure there are no guns or weapons. Likely discharge tomorrow.
[2020-09-11] MEDS: MULTIVITAMINS, THERA 1 EACH TAB PO SCH (09:54)
[2020-09-11] MEDS: ESCITALOPRAM 10 MG TAB PO SCH (09:54)
[2020-09-11] MEDS: THIAMINE 100 MG TAB PO SCH (09:54)
[2020-09-11] MEDS: FOLIC ACID 1 MG TAB PO SCH ×2 (09:55→09:56)
[2020-09-11] MEDS: NICOTINE 14MG/24HR PATCH TRANSDERM SCH (09:58)
[2020-09-11] MEDS ORDERED: OLANZapine 5 MG TAB PO SCH (21:00)
[2020-09-12 06:37] VITALS: BP 147/78; PULSE 55; RESP 16; TEMP 98.4
[2020-09-12] MEDS: NICOTINE 14MG/24HR PATCH TRANSDERM SCH (08:22)
[2020-09-12] MEDS: MONTELUKAST 10 MG TAB PO SCH (08:22)
[2020-09-12] MEDS: MULTIVITAMINS, THERA 1 EACH TAB PO SCH (08:22)
[2020-09-12] MEDS: THIAMINE 100 MG TAB PO SCH (08:22)
[2020-09-12] MEDS: FOLIC ACID 1 MG TAB PO SCH (08:23)
[2020-09-12] MEDS: PANTOPRAZOLE 40 MG TABLET PO SCH (08:23)
[2020-09-12] MEDS: ESCITALOPRAM 10 MG TAB PO SCH (08:23)
[2020-09-12] MEDS: predniSONE 20 MG TAB PO SCH (08:23)
[2020-09-12] MEDS: ALBUTEROL INHALER 60 PUFF/8 GM INHALER (MHU) INHALATION PRN (08:25)
[2020-09-12] MEDS ORDERED: traZODone HCL 100 MG TAB PO PRN (09:05)
--- NOTE | 2020-09-12 09:29 | P.DS ---
Providers Date of admission: 09/08/20 16:30 Expected date of discharge: 09/12/20 Attending physician: Andres Hayes MD Consults: 09/08/20 16:51 Consult Physician Routine Consulting Provider: Pam Patel Consult Reason/Comments: medical management Do you want consulting provider notified?: Yes Primary care physician: Val Concepcion - Discharge Diagnosis(es) (1) Major depressive disorder, recurrent severe without psychotic features Current Visit: Yes Status: Acute Priority: High (2) Alcohol use disorder Current Visit: Yes Status: Acute Priority: Medium (3) Cocaine abuse Current Visit: Yes Status: Acute Priority: Medium (4) Cannabis use disorder, mild, abuse Current Visit: Yes Status: Acute Priority: Medium (5) Opioid abuse Current Visit: Yes Status: Acute Priority: Medium (6) Nicotine dependence Current Visit: Yes Status: Acute Priority: Low Hospital Course: Admission HPI: Admission not was completed by Dr. Grant "the patient is a 49-year-old male. He resides with his girlfriend. He presented to the ED for evaluation. The patient was depressed. He had suicidal thoughts with plans. He had significant substance use issues. The patient has had long-term psychiatric and substance abuse problems. He has had a number of psychiatric admissions. His last admission here was 10/29/2019. He has had a number of previous admissions here as well. He has also had substance abuse treatment. In October he was admitted for depression with suicidal thinking. He had a number of plans to do himself in. He had ongoing use of cocaine, alcohol and marijuana. Psychotropic me dications that she was discharged on from that admission includes Wellbutrin XL 300 mg a day and Lexapro 10 mg a day. Following that admission he went to [place]. He said that for the most part he was free of abuse of substances for 6 months though he acknowledges that he smokes marijuana at least 2-3 times a week, though he minimizes the amount that he smoke. He notes that in the fall probably in May he got back into drinking and using crack cocaine and Jackman. He started using those regularly. He continued with his psychotropic medications for a period of time, though in the last month did not go back for a follow-up appointment and such as been off those medications. He notes that in the last 3 weeks he got into a very heavy binge use of those abuse of substances. He said when he does that it usually leads him to the point where he gets very intense and depression and having thoughts of self-harm. He recognizes that he needs to come into the hospital as otherwise it was likely to lead to a bad outcome. He states that in the past he has had been sober for about 10 years from [id number]. He notes that substance-abuse issues is a very strong issue in his family. His sister within the last year at age 50, her likely was related to heroin. He notes 3 cousins that have from substance abuse issues. There have been other family members as well that have had substance abuse problems. The patient notes that for a long time he might hear his name being called. Thoughts are fairly vague and nothing persistent or intrusive. Beyond that, he does not really identify any auditory hallucinations. At times he is using drugs he may have peripheral visions that are vague although otherwise he does not clearly identify identify issues of hallucinations or delusion. She does not identify paranoid thinking. He is not clearly aware that he struggles from posttraumatic issues though he acknowledges that he has had some significant past issues in his life that can crowley him at times. He has significant anxiety, though does not clearly identify panic attacks. Sleep has been down. He has loss of motivation and energy and interest. He notes that even during periods where he has been free of abuse of substances he may not clearly feel depressed though he has very little interest in things. He says that things just feel "blah" for him. He has not had significant withdrawal issues such as delirium tremens or seizures. He is not currently taking any psychotropic medications. He is admitted for further evaluation " Hospital course: Upon admission to the unit patient was initially depressed and going through withdrawals. Patient was however directable and agreeable to commence treatment and signed adult voluntary form. Patient got along well with other patients on the unit and followed unit protocol. Patient was compliant with the medications and denied any side effects throughout hospital course. Patient was started on Zyprexa however was gradually decreased and tapered off this dose which was replaced by his home dose of Lexapro 10 mg daily for mood/anxiety. Patient also was started on trazodone and titrate up the dose of 100 mg daily at bedtime when necessary for insomnia/mood. Patient spoke of his stressors and engaged in therapy both group and individual. Patient was also seen by medical team for history and physical exam. Patient had a chest x-ray completed on 09/08/2020 which showed no acute cardiopulmonary process. Emphysema. Patient was started on his inhalers at their home dose and also home a short duration of prednisone for shortness of breath which improved over the course of hospitalization. Throughout the course of the hospitalization patient gradually improved with regards to mood, anxiety, withdrawals, sleep and became more future oriented with improved insight and judgment. On the day of discharge patient denied any suicidal or homicidal ideations intent or plan denied any auditory or visual hallucinations. Patient endorsed wanting to live for his future and his health. The patient denied any access to guns or weapons. Patient denied any paranoia and did not endorse any delusions. Patient does have a significant history of substance abuse and was counseled on abstaining from all substances including alcohol and marijuana. Patient did arrange for a [place] inpatient [facility] rehab intake for Friday after discharge. Patient was also counseled on the medications and need for regular compliance and was encouraged to follow-up with their outpatient appointment for mental health and also for primary care. Prior to discharge a family meeting will be arranged by director social welfare to answer any questions and ensure safety upon discharge. Mental status exam: General Appearance: Patient appears to be tall, stated age is alert, pleasant, and cooperative. Patient is in no acute distress and has improved hygiene and grooming Behavior: Patient is calmly seated without any agitated behavior. Speech: Patient's speech is fluent and nonpressured. Mood/Affect: Patient reports their mood is "better", affect is congruent and euthymic. Suicidality/Homicidality: Patient denies having any suicidal or homicidal ideation intent or plan. Perceptions: Patient denies any auditory or visual hallucinations. Though content/process: There is no evidence of any delusional thought content and thought process is linear and goal-directed. more future oriented Memory and concentration: AOX3, grossly intact for the purposes of this session. Can spell "WORLD" backwards correctly. Judgment and insight: chronically poor, however has improved with guarded prognosis Impression: Major depressive disorder, recurrent, severe without psychotic features Alcohol use disorder Cocaine abuse Cannabis use disorder Opioid abuse Nicotine dependence Plan: -Continue with discharge today as patient has improved and stabilized psychiatrically and is not currently an imminent threat to himself and/or others. Patient will remain at chronically elevated risk for harm to self and/or others due to his impulsivity and polysubstance abuse. -Continue medications: Continue with trazodone 100 mg daily at bedtime when necessary for insomnia/mood, patient was informed that this dose can be cut in half if she feels that it is too sedating. Continue Lexapro 10 mg daily for mood/anxiety. -Patient was counseled on the need for medication compliance and appropriate follow-up at mental health and also primary care for medical issues. Patient verbalized understanding and agreed. -Social work to arrange for and conduct family meeting to ensure safety upon discharge and answer any questions/concerns. Social work also to arrange for patients follow up appointments with [facility] for psychiatric care along with follow up with primary care provider. Patient has a [place] intake on Friday for substance rehab. -Patient counseled on abstaining from recreational drugs and marijuana and alcohol. Was informed/educated on the adverse effects on their physical and mental health. Patient verbally agreed and understood. -Patient was instructed to return to the hospital or seek immediate medical care if their psychiatric or medical symptoms do worsen or reoccur. Allergies Allergy/AdvReac Type Severity Reaction Status Date / Time No Known Allergies Allergy Verified 09/08/20 13:23 Laboratory Results WBC 15.6 k/uL (3.8-10.6) H 09/09/20 08:14 RBC 5.22 m/uL (4.30-5.90) 09/09/20 08:14 Hgb 16.7 gm/dL (13.0-17.5) 09/09/20 08:14 Hct 49.9 % (39.0-53.0) 09/09/20 08:14 MCV 95.6 fL (80.0-100.0) 09/09/20 08:14 MCH 32.0 pg (25.0-35.0) 09/09/20 08:14 MCHC 33.5 g/dL (31.0-37.0) 09/09/20 08:14 RDW 12.5 % (11.5-15.5) 09/09/20 08:14 Plt Count 263 k/uL (150-450) 09/09/20 08:14 MPV 7.8 09/09/20 08:14 Neutrophils % 88 % 02/06/21 08:14 Lymphocytes % 7 % 09/09/20 08:14 Monocytes % 4 % 09/09/20 08:14 Eosinophils % 0 % 09/09/20 08:14 Basophils % 0 % 09/09/20 08:14 Neutrophils # 13.7 k/uL (1.3-7.7) H 09/09/20 08:14 Lymphocytes # 1.1 k/uL (1.0-4.8) 09/09/20 08:14 Monocytes # 0.7 k/uL (0-1.0) 09/09/20 08:14 Eosinophils # 0.0 k/uL (0-0.7) 09/09/20 08:14 Basophils # 0.0 k/uL (0-0.2) 09/09/20 08:14 PT 10.7 sec (9.0-12.0) 09/08/20 12:38 INR 1.0 (<1.2) 09/08/20 12:38 APTT 24.3 sec (22.0-30.0) 09/08/20 12:38 D-Dimer 0.39 mg/L FEU (<0.60) 09/08/20 12:38 Sodium 139 mmol/L (137-145) 09/09/20 08:14 Potassium 4.6 mmol/L (3.5-5.1) 09/09/20 08:14 Chloride 104 mmol/L (98-107) 09/09/20 08:14 Carbon Dioxide 26 mmol/L (22-30) 09/09/20 08:14 Anion Gap 9 mmol/L 09/09/20 08:14 BUN 16 mg/dL (9-20) 09/09/20 08:14 Creatinine 0.89 mg/dL (0.66-1.25) 09/09/20 08:14 Est GFR (CKD-EPI)AfAm >90 (>60 ml/min/1.73 sqM) 09/09/20 08:14 Est GFR (CKD-EPI)NonAf >90 (>60 ml/min/1.73 sqM) 09/09/20 08:14 Glucose 105 mg/dL (74-99) H 09/09/20 08:[address] Glu mg/dL 103 09/09/20 08:14 Hemoglobin A1c 5.2 % (4.0-6.0) 09/09/20 08:14 Plasma Lactic Acid Kam 1.2 mmol/L (0.7-2.0) 09/08/20 12:38 Calcium 9.4 mg/dL (8.4-10.2) 09/09/20 08:14 Total Bilirubin 0.7 mg/dL (0.2-1.3) 09/09/20 08:14 AST 34 U/L (17-59) 09/09/20 08:14 ALT 33 U/L (4-49) 09/09/20 08:14 Alkaline Phosphatase 71 U/L (38-126) 09/09/20 08:14 Troponin I <0.012 ng/mL (0.000-0.034) 09/08/20 12:38 NT-Pro-B Natriuret Pep 52 pg/mL 09/08/20 12:38 Total Protein 7.2 g/dL (6.3-8.2) 09/09/20 08:14 Albumin 4.4 g/dL (3.5-5.0) 09/09/20 08:14 Triglycerides 75 mg/dL (<150) 09/09/20 08:14 Cholesterol 197 mg/dL (<200) 09/09/20 08:14 LDL Cholesterol, Calc 100 mg/dL (0-99) H 09/09/20 08:14 HDL Cholesterol 82 mg/dL (40-60) H 09/09/20 08:14 TSH 0.582 mIU/L (0.465-4.680) 09/09/20 08:14 Urine Color Yellow 09/09/20 Unknown Urine Appearance Clear (Clear) 09/09/20 Unknown Urine pH 6.0 (5.0-8.0) 09/09/20 Unknown Ur Specific [place] 1.030 (1.001-1.035) 09/09/20 Unknown Urine Protein 1+ (Negative) H 09/09/20 Unknown Urine Glucose (UA) Negative (Negative) 09/09/20 Unknown Urine Ketones Negative (Negative) 09/09/20 Unknown Urine Blood Negative (Negative) 09/09/20 Unknown Urine Nitrite Negative (Negative) 09/09/20 Unknown Urine Bilirubin Negative (Negative) 09/09/20 Unknown Urine Urobilinogen <2.0 mg/dL (<2.0) 09/09/20 Unknown Ur Leukocyte Esterase Negative (Negative) 09/09/20 Unknown Urine RBC 1 /hpf (0-5) 09/09/20 Unknown Urine WBC 1 /hpf (0-5) 09/09/20 Unknown Hyaline Casts 1 /lpf (0-2) 09/09/20 Unknown Urine Mucus Rare /hpf (None) H 09/09/20 Unknown Urine Opiates Screen Not Detected (NotDetected) 09/08/20 12:42 Ur Oxycodone Screen Not Detected (NotDetected) 09/08/20 12:42 Urine Methadone Screen Not Detected (NotDetected) 09/08/20 12:42 Ur Propoxyphene Screen Not Detected (NotDetected) 09/08/20 12:42 Ur Barbiturates Screen Not Detected (NotDetected) 09/08/20 12:42 U Tricyclic Antidepress Not Detected (NotDetected) 09/08/20 12:42 Ur Phencyclidine Scrn Not Detected (NotDetected) 09/08/20 12:42 Ur Amphetamines Screen Not Detected (NotDetected) 09/08/20 12:42 U Methamphetamines Scrn Not Detected (NotDetected) 09/08/20 12:42 U Benzodiazepines Scrn Not Detected (NotDetected) 09/08/20 12:42 Urine Cocaine Screen Detected (NotDetected) H 09/08/20 12:42 U Marijuana (THC) Screen Detected (NotDetected) H 09/08/20 12:42 Coronavirus (PCR) Not Detected (Not Detectd) 09/08/20 13:40 Vital Signs Temp 98.4 F 09/12/20 06:36 Pulse 55 L 09/12/20 06:36 Resp 16 09/12/20 06:36 BP 147/78 09/12/20 06:36 Pulse Ox 99 09/12/20 06:36 Patient Condition at Discharge: Stable Plan - Discharge Summary Discharge Rx Participant: Yes New Discharge Prescriptions: New traZODone HCL [Desyrel] 100 mg PO HS PRN 30 Days tab PRN Reason: Insomnia Folic Acid 1 mg PO DAILY 30 Days tab Nicotine 14Mg/24Hr Patch [Habitrol] 1 patch TRANSDERM DAILY 14 Days patch Escitalopram [Lexapro] 10 mg PO DAILY 30 Days tab Multivitamins, Thera [Multivitamin (formulary)] 1 each PO DAILY 30 Days tab Acetaminophen Tab [Tylenol] 650 mg PO Q4HR PRN tab PRN Reason: Pain/Discomfort Thiamine [Vitamin B-1] 100 mg PO DAILY 30 Days tab Continue Montelukast [Singulair] 10 mg PO DAILY Omeprazole 20 mg PO DAILY Ipratropium Lenora [Atrovent Hfa] 2 puff INHALATION RT-QID PRN PRN Reason: Shortness Of Breath Albuterol Inhaler [Ventolin Hfa Inhaler] 1 puff INHALATION RT-TID PRN PRN Reason: Shortness Of Breath Discontinued buPROPion XL [Wellbutrin Xl] 300 mg PO DAILY #30 tab.er.24h Escitalopram [Lexapro] 10 mg PO DAILY #30 tab Discharge Medication List Montelukast [Singulair] 10 mg PO DAILY 01/30/19 [History] Ipratropium Lenora [Atrovent Hfa] 2 puff INHALATION RT-QID PRN 10/28/19 [History] Omeprazole 20 mg PO DAILY 10/28/19 [History] Albuterol Inhaler [Ventolin Hfa Inhaler] 1 puff INHALATION RT-TID PRN 09/08/20 [History] Acetaminophen Tab [Tylenol] 650 mg PO Q4HR PRN tab 09/12/20 [Rx] Escitalopram [Lexapro] 10 mg PO DAILY 30 Days tab 09/12/20 [Rx] Folic Acid 1 mg PO DAILY 30 Days tab 09/12/20 [Rx] Multivitamins, Thera [Multivitamin (formulary)] 1 each PO DAILY 30 Days tab 09/12/20 [Rx] Nicotine 14Mg/24Hr Patch [Habitrol] 1 patch TRANSDERM DAILY 14 Days patch 09/12/20 [Rx] Thiamine [Vitamin B-1] 100 mg PO DAILY 30 Days tab 09/12/20 [Rx] traZODone HCL [Desyrel] 100 mg PO HS PRN 30 Days tab 09/12/20 [Rx] Follow up Appointment(s)/Referral(s): [facility] [Outside] - 09/15/20 10:00 am (Intake 09/15/20 at 10 am.) Val Concepcion MD [Primary Care Provider] - 1-2 days Activity/Diet/Wound Care/Special Instructions: Activity and diet as tolerated. Avoid the use of street drugs and alcohol. Take all medications as prescribed. When you are in need of refills on your medica tions please contact your medical provider and/or outpatient psychiatrist to have this done. Please go to scheduled outpatient appointment for aftercare treatment. If symptoms return or become worse, call the crisis line at and/or go to the nearest emergency room for evaluation. Discharge Disposition: HOME SELF-CARE
== END 2020-09-12 10:00 | disposition home or self-care (01) | DRG 885 ==
LOC: EC 12:11 → 3MHU 16:30
PROVIDERS: ADMIT Psychiatry & Neurology Psychiatry; ATTEND Psychiatry & Neurology Psychiatry
DX: F33.2 Major depressive disorder, recurrent severe without psychotic features (principal); R45.851 Suicidal ideations; F14.23 Cocaine dependence with withdrawal; Z91.128 Patient's intentional underdosing of medication regimen for other reason; F12.23 Cannabis dependence with withdrawal; J43.9 Emphysema, unspecified; I20.9 Angina pectoris, unspecified; F10.20 Alcohol dependence, uncomplicated; F11.10 Opioid abuse, uncomplicated; Z20.822 Contact with and (suspected) exposure to COVID-19; J20.9 Acute bronchitis, unspecified; T50.916A Underdosing of multiple unspecified drugs, medicaments and biological substances, initial encounter; K29.70 Gastritis, unspecified, without bleeding; F41.9 Anxiety disorder, unspecified; K21.9 Gastro-esophageal reflux disease without esophagitis; G47.00 Insomnia, unspecified; R45.87 Impulsiveness; M19.90 Unspecified osteoarthritis, unspecified site; F17.210 Nicotine dependence, cigarettes, uncomplicated; Z71.6 Tobacco abuse counseling; Z79.899 Other long term (current) drug therapy; Z87.81 Personal history of (healed) traumatic fracture; Z90.89 Acquired absence of other organs; Z82.2 Family history of deafness and hearing loss; Z82.49 Family history of ischemic heart disease and other diseases of the circulatory system; Z81.4 Family history of other substance abuse and dependence
CPT/HCPCS: 36415; 71046; 80053; 80061; 80306; 81001; 81003; 83036; 83605; 83880; 84443; 84484; 85025; 85379; 85610; 85730; 87635; 93005; 94640; 96374; 99285

== ENCOUNTER 2022-04-19 17:11 | Inpatient (IN) | payer BC, MEDICAID ==
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
[2022-04-19 20:17] LABS: Amphetamine Screen,Urine Detected (NotDetected); Cocaine Screen,Urine Detected (NotDetected); Opiate Screen,Urine Not Detected (NotDetected); Phencyclidine Screen,Urine Not Detected (NotDetected); Urn Cannabinoid Scrn Not Detected (NotDetected)
[2022-04-19 20:18] LABS: Barbiturate Screen,Urine Not Detected (NotDetected); Benzodiazepines Screen,Urine Not Detected (NotDetected); Methadone Screen, Urine Not Detected (NotDetected); Oxycodone Screen, Urine Not Detected (NotDetected); Tricyclic Antidepressant,Urine Not Detected (NotDetected)
[2022-04-19] MEDS ORDERED: cloNIDine HCL 0.2 MG TAB PO STA (21:51)
[2022-04-19 22:29] LABS: HCT 41.8 % (39.0-53.0); HGB 14.3 gm/dL (13.0-17.5); MCH 32.8 pg (25.0-35.0); MCHC 34.2 g/dL (31.0-37.0); Mean Platelet Volume 7.6; Platelet Count 230 k/uL (150-450); RBC 4.35 m/uL (4.30-5.90); RDW 12.6 % (11.5-15.5); WBC 9.8 k/uL (3.8-10.6)
[2022-04-19 22:45] LABS: ALT 31 U/L (4-49); AST 38 U/L (17-59); African American GFR (CKD) >90 (>60 ml/min/1.73 sqM); Albumin 4.1 g/dL (3.5-5.0); Alkaline Phosphatase 83 U/L (38-126); Anion Gap 11 mmol/L; Blood Urea Nitrogen 11 mg/dL (9-20); Calcium 9.2 mg/dL (8.4-10.2); Carbon Dioxide 25 mmol/L (22-30); Chloride 104 mmol/L (98-107); Glucose 78 mg/dL (74-99); Non-African American GFR(CKD) >90 (>60 ml/min/1.73 sqM); Potassium 3.9 mmol/L (3.5-5.1); Sodium 140 mmol/L (137-145); Total Bilirubin 1.5 mg/dL (0.2-1.3); Total Protein 6.3 g/dL (6.3-8.2)
[2022-04-20] MEDS ORDERED: ACETAMINOPHEN TAB 325 MG TAB PO PRN (00:20)
[2022-04-20] MEDS ORDERED: MAG HYDROX/AL HYDROX/SIMETH 30 ML CUP PO PRN (00:20)
[2022-04-20] MEDS ORDERED: HALOPERIDOL LACTATE 5 MG/ML 1 ML VIAL IM PRN (00:20)
[2022-04-20] MEDS ORDERED: MAGNESIUM HYDROXIDE 2,400 MG/10 ML CUP PO PRN (00:20)
[2022-04-20] MEDS ORDERED: LORazepam 2 MG/ML INJ IM PRN (00:25)
[2022-04-20] MEDS ORDERED: haloperidoL 5 MG TAB PO PRN (00:26)
[2022-04-20 07:13] LABS: Basophils % (A) 1 %; Eosinophils # (A) 0.2 k/uL (0-0.7); Eosinophils % (A) 3 %; HCT 47.6 % (39.0-53.0); HGB 15.6 gm/dL (13.0-17.5); Lymphocytes # (A) 1.4 k/uL (1.0-4.8); Lymphocytes % (A) 22 %; MCH 31.6 pg (25.0-35.0); MCHC 32.7 g/dL (31.0-37.0); MCV 96.7 fL (80.0-100.0); Mean Platelet Volume 7.7; Monocytes # (A) 0.5 k/uL (0-1.0); Monocytes % (A) 7 %; Neutrophils # (A) 4.2 k/uL (1.3-7.7); Neutrophils % (A) 66 %; Platelet Count 243 k/uL (150-450); RBC 4.92 m/uL (4.30-5.90); RDW 12.2 % (11.5-15.5); WBC 6.4 k/uL (3.8-10.6)
[2022-04-20 07:42] LABS: ALT 29 U/L (4-49); AST 32 U/L (17-59); African American GFR (CKD) >90 (>60 ml/min/1.73 sqM); Alkaline Phosphatase 83 U/L (38-126); Anion Gap 9 mmol/L; Blood Urea Nitrogen 14 mg/dL (9-20); Calcium 8.9 mg/dL (8.4-10.2); Carbon Dioxide 28 mmol/L (22-30); Chloride 104 mmol/L (98-107); Glucose 88 mg/dL (74-99); Non-African American GFR(CKD) 85 (>60 ml/min/1.73 sqM); Potassium 4.1 mmol/L (3.5-5.1); Sodium 141 mmol/L (137-145); Total Bilirubin 1.1 mg/dL (0.2-1.3); Total Protein 6.2 g/dL (6.3-8.2)
[2022-04-20] MEDS: NICOTINE 14MG/24HR PATCH TRANSDERM SCH (09:09)
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
[2022-04-20] MEDS: PANTOPRAZOLE 40 MG TABLET PO SCH (11:37)
[2022-04-20 11:51] LABS: Chol/HDL Ratio 3.11 Ratio; LDL Cholesterol,Calculated 91.4 mg/dL (0.0-131.0)
[2022-04-20 16:55] LABS: Appearance,Urine Clear (Clear); Bilirubin,Urine Negative (Negative); Blood,Urine Negative (Negative); Color,Urine Light Yellow; Glucose,Urine (UA) Negative (Negative); Ketones,Urine 2+ (Negative); Leukocyte Esterase,Urine Negative (Negative); Nitrite,Urine Negative (Negative); PH, Urine 5.5 (5.0-8.0); Protein,Urine Negative (Negative); Specific Gravity,Urine 1.006 (1.001-1.035); Urobilinogen,Urine <2.0 mg/dL (<2.0)
[2022-04-20] MEDS: SERTRALINE 25 MG TAB PO SCH (18:17)
--- NOTE | 2022-04-20 20:17 | P.HP ---
Psychiatric H&P - . H&P Date: 04/20/22 History & Physical: Allergies Allergy/AdvReac Type Severity Reaction Status Date / Time No Known Allergies Allergy Verified 09/08/20 13:23 Vital Signs Temp 97.2 F L 04/20/22 01:17 Pulse 92 04/20/22 01:17 Resp 18 04/20/22 01:17 BP 133/69 04/20/22 01:17 Pulse Ox 97 04/20/22 01:17 FiO2 Intake & Output 04/19/22 04/20/22 04/20/22 18:59 06:59 18:59 Weight 108.862 kg 108.862 kg Laboratory Last Values WBC 6.4 k/uL (3.8-10.6) 04/20/22 06:38 RBC 4.92 m/uL (4.30-5.90) 04/20/22 06:38 Hgb 15.6 gm/dL (13.0-17.5) 04/20/22 06:38 Hct 47.6 % (39.0-53.0) 04/20/22 06:38 MCV 96.7 fL (80.0-100.0) 04/20/22 06:38 MCH 31.6 pg (25.0-35.0) 04/20/22 06:38 MCHC 32.7 g/dL (31.0-37.0) 04/20/22 06:38 RDW 12.2 % (11.5-15.5) 04/20/22 06:38 Plt Count 243 k/uL (150-450) 04/20/22 06:38 MPV 7.7 04/20/22 06:38 Neutrophils % 66 % 04/20/22 06:38 Lymphocytes % 22 % 04/20/22 06:38 Monocytes % 7 % 04/20/22 06:38 Eosinophils % 3 % 04/20/22 06:38 Basophils % 1 % 04/20/22 06:38 Neutrophils # 4.2 k/uL (1.3-7.7) 04/20/22 06:38 Lymphocytes # 1.4 k/uL (1.0-4.8) 04/20/22 06:38 Monocytes # 0.5 k/uL (0-1.0) 04/20/22 06:38 Eosinophils # 0.2 k/uL (0-0.7) 04/20/22 06:38 Basophils # 0.0 k/uL (0-0.2) 04/20/22 06:38 Sodium 141 mmol/L (137-145) 04/20/22 06:38 Potassium 4.1 mmol/L (3.5-5.1) 04/20/22 06:38 Chloride 104 mmol/L (98-107) 04/20/22 06:38 Carbon Dioxide 28 mmol/L (22-30) 04/20/22 06:38 Anion Gap 9 mmol/L 04/20/22 06:38 BUN 14 mg/dL (9-20) 04/20/22 06:38 Creatinine 1.03 mg/dL (0.66-1.25) 04/20/22 06:38 Est GFR (CKD-EPI)AfAm >90 (>60 ml/min/1.73 sqM) 04/20/22 06:38 Est GFR (CKD-EPI)NonAf 85 (>60 ml/min/1.73 sqM) 04/20/22 06:38 Glucose 88 mg/dL (74-99) 04/20/22 06:[address] Glu mg/dL 108 04/20/22 06:38 Hemoglobin A1c 5.4 % (0.0-6.0) 04/20/22 06:38 Calcium 8.9 mg/dL (8.4-10.2) 04/20/22 06:38 Total Bilirubin 1.1 mg/dL (0.2-1.3) 04/20/22 06:38 AST 32 U/L (17-59) 04/20/22 06:38 ALT 29 U/L (4-49) 04/20/22 06:38 Alkaline Phosphatase 83 U/L (38-126) 04/20/22 06:38 Total Protein 6.2 g/dL (6.3-8.2) L 04/20/22 06:38 Albumin 4.0 g/dL (3.5-5.0) 04/20/22 06:38 Triglycerides 160.00 mg/dL (0.00-149.00) H 04/20/22 06:38 Cholesterol 182.00 mg/dL (0.00-200.00) 04/20/22 06:38 LDL Cholesterol, Calc 91.4 mg/dL (0.0-131.0) 04/20/22 06:38 VLDL Cholesterol, Calc 32.00 mg/dL (5.00-40.00) 04/20/22 06:38 HDL Cholesterol 58.60 mg/dL (40.00-60.00) 04/20/22 06:38 Cholesterol/HDL Ratio 3.11 Ratio 04/20/22 06:38 TSH 0.792 mIU/L (0.465-4.680) 04/20/22 06:38 Urine Opiates Screen Not Detected (NotDetected) 04/19/22 20:01 Ur Oxycodone Screen Not Detected (NotDetected) 04/19/22 20:01 Urine Methadone Screen Not Detected (NotDetected) 04/19/22 20:01 Ur Propoxyphene Screen Not Detected (NotDetected) 04/19/22 20:01 Ur Barbiturates Screen Not Detected (NotDetected) 04/19/22 20:01 U Tricyclic Antidepress Not Detected (NotDetected) 04/19/22 20:01 Ur Phencyclidine Scrn Not Detected (NotDetected) 04/19/22 20:01 Ur Amphetamines Screen Detected (NotDetected) H 04/19/22 20:01 U Methamphetamines Scrn Not Detected (NotDetected) 04/19/22 20:01 U Benzodiazepines Scrn Not Detected (NotDetected) 04/19/22 20:01 Urine Cocaine Screen Detected (NotDetected) H 04/19/22 20:01 U Marijuana (THC) Screen Not Detected (NotDetected) 04/19/22 20:01 Coronavirus (PCR) Not Detected (Not Detectd) 04/19/22 22:23 04/20/22 17:56 IDENTIFYING DATA: Patient is a single, employed, 51-year-old [place] male who is presenting with suicidal ideation and substance use. HPI: Patient reports that he brought himself into the ED after experiencing suicidal ideation. Recent stressors include feeling that work is monotonous, finances, breakup with girlfriend of 11 years. He reports feeling empty and that he is a failure. He went to a beach and was contemplating hanging himself with his belt. He endorses feelings of depression for the past year. He reports significant symptoms of depression including anhedonia, feelings of worthlessness, decreased energy, decreased appetite, and psychomotor retardation. He denies sleep concerns and trouble concentrating. He has been "self-medicating" with different substances as described in the substance section below. He would like to seek help for both the mood and for his substance use. In psychiatric review of systems, he denies symptoms consistent with alice. He denies symptoms of psychosis including auditory and visual hallucinations ideas of reference, and paranoia. Patient endorses worrying most of the time and feeling restless as a result. He cannot relax and feels on edge most of the time. He denies panic attacks. PSYCH HX: Previous psychiatrist: Denies outpatient Therapist: [facility] Past tx: Lexapro, Wellbutrin Hospitalizations: Twice in the past NSSI: Denies SA: Denies PMH: COPD, GERD ALLERGIES: Denies PCP: Dr. Val Concepcion Head injuries: Denies Seizures: Denies SUBSTANCE HX: Alcohol: 3-5 times a week. 8-12 beers. Last drink was 04/18/22 Cocaine: Few times a week (was laced with meth) in the past few months. Had tried it in the past. Tobacco: Vaping. Cannabis: Few times a week. [place]: Using a few times a week Denies using other substances Attended [facility] rehab facility in the past. Tried to cut back substance use but unsuccessful. SOCIAL/LEGAL HX: He grew up in [place], [place] with parents and sister. Parents got when patient was an adult. He reports living with his girlfriend of 11 years. He was previously for 15 years. 1 adult daughter with whom he does not speak. Highest level of education: GED. Vocation: [employer] for 2 years Legal problems: 3 DUIs FAM PSYCH HX: Maternal grandfather: alcohol use Mother: alcohol use, depression Suicide attempts: cousins Suicide completion: Sister - suspected heroin OD, maternal aunt (jumped off a bridge) DEVELOPMENT: No complications MENTAL STATUS EXAM: Patient is a 51-year-old male who appears his stated age. He is dressed in hospital scrubs. Grooming and hygiene are poor. Fair eye contact. No abnormal movements (facial tics or tremors) are appreciated. Does not appear to be restless. Cooperative to interview. Speaks Bulgarian. Speech is clear and coherent with regular rate and intonation. Mood is depressed. Affect is mood congruent and tearful at times. Thought process is linear and goal-directed. Patient participates in conversation and answers questions appropriately. Thought content: endorses suicidal ideation today. Engaged in treatment planning today. Denies AVH, paranoia. A&Ox3. Attention and concentration intact to interview. No evidence that patient is responding to internal stimuli. Fund of knowledge is broad. Recent and remote memory are intact to interview. Judgment limited. Insight is limited. STRENGTHS/WEAKNESSES: Polysubstance use and no social support INTELLECT: average IMPRESSIONS: Major Depressive Disorder, recurrent, severe without psychotic features Alcohol use disorder, severe (not currently in withdrawal) Cocaine use disorder, severe PLAN: -Patient is admitted under voluntary status to MHU for stabilization of psychiatric symptoms and safety. Patient signed adult voluntary form and medication consent and is placed in patient's chart. -Medications : Will start patient on Zoloft 25 mg to be increased to 50 mg tomorrow if tolerated. Naltrexone 50 mg daily for alcohol craving -Patient was counselled on substance abuse and desired to cut back on use. Motivational interviewing. Patient would like to attend [facility] following discharge from psychiatric hospitalization -Patient was informed of the risks, benefits and side effects of the medication and patient verbally consented to taking the medications. Patient signed med consent form and was placed in chart. -Internal Medicine consult to perform medical evaluation and physical. -SW on board for discharge planning. Encourage patient to participate in groups to work on coping skills. 04/20/22 18:06 04/20/22 20:08
[2022-04-20] MEDS: MONTELUKAST 10 MG TAB PO SCH (21:03)
[2022-04-21] MEDS: PANTOPRAZOLE 40 MG TABLET PO SCH (09:51)
[2022-04-21] MEDS: NICOTINE 14MG/24HR PATCH TRANSDERM SCH (09:51)
[2022-04-21] MEDS: NALTREXONE HCL 50 MG TAB PO SCH (09:51)
[2022-04-21] MEDS: SERTRALINE 25 MG TAB PO SCH (09:51)
--- NOTE | 2022-04-21 12:39 | P.PN ---
Progress Note - Text Progress Note Date: 04/21/22 Interval History: Patient was seen bedside. He was reading junk or some normal. He states that he continues to have low mood and endorses suicidal ideation with several plans. He reports taking medications as scheduled and denies any side effects. Patient continuing to be interested in attending [place]. He was encouraged to attend groups and discussed rehab with social work tomorrow. In psychiatric review of systems, denies symptoms of psychosis including auditory and visual hallucinations ideas of reference, and paranoia. Patient denies HI and access to firearms at home. Mental Status Exam: Patient is a 51-year-old male who appears his stated age. He is dressed in shirt and jeans. Grooming and hygiene are improved. Fair eye contact. No abnormal movements (facial tics or tremors) are appreciated. Does not appear to be restless. Cooperative to interview. Speaks Welsh. Speech is clear and coherent with regular rate and intonation. Mood is depressed. Affect is mood congruent. Thought process is linear and goal-directed. Patient participates in conversation and answers questions appropriately. Thought content: endorses suicidal ideation today. Engaged in treatment planning today. Denies AVH, paranoia. A&Ox3. Attention and concentration intact to interview. No evidence that patient is responding to internal stimuli. Fund of knowledge is broad. Recent and remote memory are intact to interview. Judgment limited. Insight is limited. Assessment Major Depressive Disorder, recurrent, severe without psychotic features Alcohol use disorder, severe (not currently in withdrawal) Cocaine use disorder, severe Plan: -Patient is admitted under voluntary status to MHU for stabilization of psychiatric symptoms and safety. Patient signed adult voluntary form and medication consent and is placed in patient's chart. -Medications : Increase Zoloft to 50 mg daily tomorrow. Naltrexone 50 mg daily for alcohol craving -Patient was counselled on substance abuse and desired to cut back on use. Motivational interviewing. Patient would like to attend [place] [facility] following discharge from psychiatric hospitalization -Patient was informed of the risks, benefits and side effects of the medication and patient verbally consented to taking the medications. Patient signed med consent form and was placed in chart. -Internal Medicine consult to perform medical evaluation and physical. -SW on board for discharge planning. Encourage patient to participate in groups to work on coping skills.
[2022-04-21] MEDS: MONTELUKAST 10 MG TAB PO SCH (21:34)
[2022-04-21] MEDS: ALBUTEROL INHALER 60 PUFF/8 GM INHALER (MHU) INHALATION PRN (21:35)
[2022-04-21] MEDS: LORazepam 1 MG TAB PO PRN (22:36)
[2022-04-22] MEDS: PANTOPRAZOLE 40 MG TABLET PO SCH (08:00)
[2022-04-22] MEDS ORDERED: SERTRALINE 50 MG TAB PO SCH (09:00)
[2022-04-22] MEDS: NALTREXONE HCL 50 MG TAB PO SCH (10:12)
[2022-04-22] MEDS: NICOTINE 14MG/24HR PATCH TRANSDERM SCH (10:12)
--- NOTE | 2022-04-22 10:55 | P.PN ---
Progress Note - Text Progress Note Date: 04/22/22 Interval History: Patient was seen resting in bed and was directable and agreeable to speak with writer producer in the office. Currently, the patient reports that he has been feeling increasingly depressed since the passing of his mother in 2019. Furthermore, the patient reports that he is dealing with numerous financial stressors. He does not report any suicidal ideation or homicidal ideation today. He states he last felt suicidal yesterday. He has been adherent with his medications and is not reporting any significant side effects. He reports no auditory or visual hallucinations. He denies any paranoia or other delusions. The patient does express a strong desire to go to inpatient substance abuse rehabilitation upon discharge. The patient will call the access number today. The patient does report that he feels elevated anxiety and has racing thoughts prior to falling asleep. He reports sleep has been poor. He states that he tends to ruminate on all the past events and where he went wrong. Mental Status Exam: General Appearance: Patient appears to be stated age is alert, directable, and cooperative. Behavior: Patient is calmly seated without any agitated behavior. Speech: Patient's speech is fluent and nonpressured. Mood/Affect: Mood is improving mildly, affect is congruent and constricted. Suicidality/Homicidality: Patient denies having any suicidal or homicidal ideation intent or plan. Perceptions: Patient denies any visual hallucinations and denies any auditory hallucinations Though content/process: There is no evidence of any delusional thought content and thought process is linear and goal-directed. Memory and concentration: AOX3, grossly intact for the purposes of this session Judgment and insight: Improving mildly Vital Signs Temp 97.8 F 04/22/22 06:42 Pulse 55 L 04/22/22 06:42 Resp 16 04/22/22 06:42 BP 108/54 04/22/22 06:42 Pulse Ox 98 04/22/22 06:42 FiO2 Intake & Output 04/21/22 04/22/22 04/22/22 18:59 06:59 18:59 Weight 109 kg Assessment Major Depressive Disorder, recurrent, severe without psychotic features Alcohol use disorder, severe (not currently in withdrawal) Cocaine use disorder, severe Plan: -Patient continues to meet criteria for inpatient psychiatric admission for symptom stabilization and safety. Patient has signed adult voluntary form and medication consent and was placed in patient's chart. -Medications: Increase Zoloft 100 mg by mouth daily for depression/anxiety Naltrexone 50 mg by mouth daily for alcohol use disorder Start Seroquel 75 mg by mouth at bedtime for mood augmentation/insomnia -When necessary Ativan and Haldol for agitation/aggression. -NRT - nicotine patch -SW on board for discharge planning. Encouraged the patient to participate in milieu.
[2022-04-22] MEDS: ALBUTEROL INHALER 60 PUFF/8 GM INHALER (MHU) INHALATION PRN (16:35)
[2022-04-22] MEDS: LORazepam 1 MG TAB PO PRN (16:37)
[2022-04-22] MEDS: MONTELUKAST 10 MG TAB PO SCH (20:39)
[2022-04-22] MEDS: QUEtiapine 25 MG TAB PO SCH (20:39)
[2022-04-23 06:56] VITALS: BP 142/69; PULSE 64; RESP 17; TEMP 97.9
[2022-04-23] MEDS ORDERED: SERTRALINE 100 MG TAB PO SCH (09:00)
[2022-04-23] MEDS: PANTOPRAZOLE 40 MG TABLET PO SCH (09:04)
[2022-04-23] MEDS: NALTREXONE HCL 50 MG TAB PO SCH (09:04)
--- NOTE | 2022-04-23 11:08 | P.PN ---
Progress Note - Text Progress Note Date: 04/23/22 Interval History: Patient was seen resting in bed and was directable and agreeable to speak with keno writer in the office. The patient is currently not reporting any suicidal or homicidal ideation, intention,/he is not reporting any auditory or visual hallucinations. He has been attending more groups today. He reports that his depression has significantly improved in that he was able to sleep well last night. He states that the Seroquel has been beneficial in decreasing his anxious and racing thoughts at bedtime. He is in agreement to increase his Zoloft. He continues to desire to go to inpatient substance abuse rehabilitation after discharge. Mental Status Exam: General Appearance: Patient appears to be stated age is alert, directable, and cooperative. Behavior: Patient is calmly seated without any agitated behavior. Speech: Patient's speech is fluent and nonpressured. Mood/Affect: Mood is improving mildly, affect is congruent and constricted. Suicidality/Homicidality: Patient denies having any suicidal or homicidal ideation intent or plan. Perceptions: Patient denies any visual hallucinations and denies any auditory hallucinations Though content/process: There is no evidence of any delusional thought content and thought process is linear and goal-directed. Memory and concentration: AOX3, grossly intact for the purposes of this session Judgment and insight: Improving mildly Vital Signs Temp 97.9 F 04/23/22 04:00 Pulse 64 04/23/22 04:00 Resp 17 04/23/22 04:00 BP 142/69 04/23/22 04:00 Pulse Ox 98 04/22/22 20:37 FiO2 Assessment Major Depressive Disorder, recurrent, severe without psychotic features Alcohol use disorder, severe (not currently in withdrawal) Cocaine use disorder, severe Plan: -Patient continues to meet criteria for inpatient psychiatric admission for symptom stabilization and safety. Patient has signed adult voluntary form and medication consent and was placed in patient's chart. -Medications: Increase Zoloft to 150 mg by mouth daily for depression/anxiety Naltrexone 50 mg by mouth daily for alcohol use disorder Seroquel 75 mg by mouth at bedtime for mood augmentation/insomnia -When necessary Ativan and Haldol for agitation/aggression. -NRT - nicotine patch -SW on board for discharge planning. Encouraged the patient to participate in milieu.
[2022-04-23] MEDS: QUEtiapine 25 MG TAB PO SCH (20:51)
[2022-04-23] MEDS: MONTELUKAST 10 MG TAB PO SCH (20:51)
[2022-04-23] MEDS: ALBUTEROL INHALER 60 PUFF/8 GM INHALER (MHU) INHALATION PRN (20:52)
[2022-04-24] MEDS: PANTOPRAZOLE 40 MG TABLET PO SCH (08:16)
[2022-04-24] MEDS: NALTREXONE HCL 50 MG TAB PO SCH (08:16)
[2022-04-24] MEDS: ALBUTEROL INHALER 60 PUFF/8 GM INHALER (MHU) INHALATION PRN (08:18)
[2022-04-24] MEDS ORDERED: SERTRALINE 50 MG TAB PO SCH (09:00)
--- NOTE | 2022-04-24 12:33 | P.DS ---
Providers Date of admission: 04/19/22 23:59 Expected date of discharge: 04/24/22 Attending physician: Jose Fermin MD Consults: 04/20/22 00:20 Consult Physician Routine Consulting Provider: Lindsey Schwarz Consult Reason/Comments: H&P for mental health admission Do you want consulting provider notified?: Yes Primary care physician: Val Concepcion - Discharge Diagnosis(es) (1) Major depressive disorder, recurrent severe without psychotic features Status: Acute Priority: High (2) Alcohol use disorder Status: Chronic Priority: Medium (3) Cocaine use disorder Status: Chronic Priority: Medium Hospital Course: Admission HPI: Initial psychiatric evaluation was completed by Dr. Gomez who wrote: Patient is a single, employed, 51-year-old [place] male who is presenting with suicidal ideation and substance use. Patient reports that he brought himself into the ED after experiencing suicidal ideation. Recent stressors include feeling that work is monotonous, finances, breakup with girlfriend of 11 years. He reports feeling empty and that he is a failure. He went to a beach and was contemplating hanging himself with his belt. He endorses feelings of depression for the past year. He reports significant symptoms of depression including anhedonia, feelings of worthlessness, decreased energy, decreased appetite, and psychomotor retardation. He denies sleep concerns and trouble concentrating. He has been "self-medicating" with different substances as described in the substance section below. He would like to seek help for both the mood and for his substance use. In psychiatric review of systems, he denies symptoms consistent with alice. He denies symptoms of psychosis including auditory and visual hallucinations ideas of reference, and paranoia. Patient endorses worrying most of the time and feeling restless as a result. He cannot relax and feels on edge most of the time. He denies panic attacks. Hospital course: Upon admission to the unit patient was initially presenting is cooperative and polite however endorsing significant depression and suicidal ideation in the context of heavy alcohol use. Patient was however directable and agreeable to commence treatment. Patient got along well with other patients on the unit and followed unit protocol. Patient was compliant with the medications and denied any side effects throughout hospital course. Patient was started on Zoloft for depression and naltrexone for alcohol cravings. Patient spoke of his stressors and engaged in therapy both group and individual. Patient was also seen by medical team for history and physical exam. Seroquel was added to the patient's regimen due to his concerns for insomnia and racing thoughts at bedtime. Assist augment his antidepressant. His Zoloft was titrated to a final dose of 150 mg by mouth daily. Over the course of hospitalization, the patient displayed significant improvement on this regimen. He became more future and goal oriented and began to participate in more group and individual milieu therapies. The patient also contacted rehab with plans to go to rehab for his alcohol and cocaine use disorder in the near future. On the day of discharge, the patient is not reporting any suicidal or homicidal ideation, intention, and/or plan. He is denying any auditory or visual hallucinations. He is reporting no paranoia or delusions. Patient has been adherent with his medication and is not reporting any significant side effects. The patient was counseled at length and he points medication adherence. It outpatient follow-up. The patient does have a significant history substance abuse and was counseled on abstaining from all substances including alcohol and marijuana. He plans to go to inpatient substance abuse rehabilitation at [facility] in the near future. Prior to discharge, family meeting will be arranged by social service liaison to answer questions and ensure safety. Mental status exam: General Appearance: Patient appears to be stated age is alert, pleasant, and cooperative. Patient is in no acute distress and has fair hygiene and grooming Behavior: Patient is calmly seated without any agitated behavior. Speech: Patient's speech is fluent and nonpressured. Mood/Affect: Patient reports their mood is "much better", affect is congruent and euthymic to bright. Suicidality/Homicidality: Patient denies having any suicidal or homicidal ideation intent or plan. Perceptions: Patient denies any auditory or visual hallucinations. Though content/process: There is no evidence of any delusional thought content and thought process is linear and goal-directed. Patient is future oriented. Memory and concentration: AOX3, grossly intact for the purposes of this session. Can spell "WORLD" backwards correctly. Judgment and insight: Improved with guarded prognosis Impression: Major Depressive Disorder, recurrent, severe without psychotic features Alcohol use disorder, severe Cocaine use disorder, severe Plan: -Continue with discharge today as patient has improved and stabilized psychiatrically and is not currently an imminent threat to himself and/or others. Patient will remain at chronically elevated risk for harm to self and/or others due to his polysubstance abuse. -Continue medications: ReVia 50 mg by mouth daily from conversation Seroquel 75 mg by mouth at bedtime for mood augmentation Zoloft 150 mg by mouth daily for depression/anxiety Medical medications that were also prescribed include Singulair at bedtime and Protonix -Patient was counseled on the need for medication compliance and appropriate follow-up at mental health and also primary care for medical issues. Patient verbalized understanding and agreed. -Social work to arrange for and conduct family meeting to ensure safety upon discharge and answer any questions/concerns. Social work also to arrange for patients follow up appointments with [facility] for psychiatric care along with follow up with primary care provider. -Patient counseled on abstaining from recreational drugs and marijuana and alcohol. Was informed/educated on the adverse effects on their physical and mental health. Patient verbally agreed and understood. Patient reports that he plans to go to rehab at [facility] in the near future. -Patient was instructed to return to the hospital or seek immediate medical care if their psychiatric or medical symptoms do worsen or reoccur. -Psychoeducation and supportive therapy provided to patient. Risks and benefits of pharmacological treatment versus the risks and benefits of nontreatment weight and discussed. Informed consent discussion held. Common side effects of psychotropics discussed such as, but not limited to headache, GI disturbance, sexual dysfunction, movement disorders, sedation, and orthostatic hypotension. Life threatening and blackbox warnings of prescribed medications also discussed. Potential risks of operating a vehicle or heavy machinery discussed with patient at length. Advised on importance of compliance and a reliable and responsible manner. Patient advised to review FDA consumer labeling of all medications prior to taking. Patient verbalized understanding of potential risks, and agrees with current treatment plan. Patient advised to medically contact physician/emergency personnel if any acute changes in condition occur. Allergies Allergy/AdvReac Type Severity Reaction Status Date / Time No Known Allergies Allergy Verified 09/08/20 13:23 Laboratory Results WBC 6.4 k/uL (3.8-10.6) 04/20/22 06:38 RBC 4.92 m/uL (4.30-5.90) 04/20/22 06:38 Hgb 15.6 gm/dL (13.0-17.5) 04/20/22 06:38 Hct 47.6 % (39.0-53.0) 04/20/22 06:38 MCV 96.7 fL (80.0-100.0) 04/20/22 06:38 MCH 31.6 pg (25.0-35.0) 04/20/22 06:38 MCHC 32.7 g/dL (31.0-37.0) 04/20/22 06:38 RDW 12.2 % (11.5-15.5) 04/20/22 06:38 Plt Count 243 k/uL (150-450) 04/20/22 06:38 MPV 7.7 04/20/22 06:38 Neutrophils % 66 % 04/20/22 06:38 Lymphocytes % 22 % 04/20/22 06:38 Monocytes % 7 % 04/20/22 06:38 Eosinophils % 3 % 04/20/22 06:38 Basophils % 1 % 04/20/22 06:38 Neutrophils # 4.2 k/uL (1.3-7.7) 04/20/22 06:38 Lymphocytes # 1.4 k/uL (1.0-4.8) 04/20/22 06:38 Monocytes # 0.5 k/uL (0-1.0) 04/20/22 06:38 Eosinophils # 0.2 k/uL (0-0.7) 04/20/22 06:38 Basophils # 0.0 k/uL (0-0.2) 04/20/22 06:38 Sodium 141 mmol/L (137-145) 04/20/22 06:38 Potassium 4.1 mmol/L (3.5-5.1) 04/20/22 06:38 Chloride 104 mmol/L (98-107) 04/20/22 06:38 Carbon Dioxide 28 mmol/L (22-30) 04/20/22 06:38 Anion Gap 9 mmol/L 04/20/22 06:38 BUN 14 mg/dL (9-20) 04/20/22 06:38 Creatinine 1.03 mg/dL (0.66-1.25) 04/20/22 06:38 Est GFR (CKD-EPI)AfAm >90 (>60 ml/min/1.73 sqM) 04/20/22 06:38 Est GFR (CKD-EPI)NonAf 85 (>60 ml/min/1.73 sqM) 04/20/22 06:38 Glucose 88 mg/dL (74-99) 04/20/22 06:[address] Glu mg/dL 108 04/20/22 06:38 Hemoglobin A1c 5.4 % (0.0-6.0) 04/20/22 06:38 Calcium 8.9 mg/dL (8.4-10.2) 04/20/22 06:38 Total Bilirubin 1.1 mg/dL (0.2-1.3) 04/20/22 06:38 AST 32 U/L (17-59) 04/20/22 06:38 ALT 29 U/L (4-49) 04/20/22 06:38 Alkaline Phosphatase 83 U/L (38-126) 04/20/22 06:38 Total Protein 6.2 g/dL (6.3-8.2) L 04/20/22 06:38 Albumin 4.0 g/dL (3.5-5.0) 04/20/22 06:38 Triglycerides 160.00 mg/dL (0.00-149.00) H 04/20/22 06:38 Cholesterol 182.00 mg/dL (0.00-200.00) 04/20/22 06:38 LDL Cholesterol, Calc 91.4 mg/dL (0.0-131.0) 04/20/22 06:38 VLDL Cholesterol, Calc 32.00 mg/dL (5.00-40.00) 04/20/22 06:38 HDL Cholesterol 58.60 mg/dL (40.00-60.00) 04/20/22 06:38 Cholesterol/HDL Ratio 3.11 Ratio 04/20/22 06:38 TSH 0.792 mIU/L (0.465-4.680) 04/20/22 06:38 Urine Color Light Yellow 04/19/22 20:01 Urine Appearance Clear (Clear) 04/19/22 20:01 Urine pH 5.5 (5.0-8.0) 04/19/22 20:01 Ur Specific [place] 1.006 (1.001-1.035) 04/19/22 20:01 Urine Protein Negative (Negative) 04/19/22 20: Urine Glucose (UA) Negative (Negative) 04/19/22 20:01 Urine Ketones 2+ (Negative) H 04/19/22 20:01 Urine Blood Negative (Negative) 04/19/22 20:01 Urine Nitrite Negative (Negative) 04/19/22 20: Urine Bilirubin Negative (Negative) 04/19/22 20:01 Urine Urobilinogen <2.0 mg/dL (<2.0) 04/19/22 20:01 Ur Leukocyte Esterase Negative (Negative) 04/19/22 20:01 Urine Opiates Screen Not Detected (NotDetected) 04/19/22 20:01 Ur Oxycodone Screen Not Detected (NotDetected) 04/19/22 20:01 Urine Methadone Screen Not Detected (NotDetected) 04/19/22 20:01 Ur Propoxyphene Screen Not Detected (NotDetected) 04/19/22 20:01 Ur Barbiturates Screen Not Detected (NotDetected) 04/19/22 20:01 U Tricyclic Antidepress Not Detected (NotDetected) 04/19/22 20:01 Ur Phencyclidine Scrn Not Detected (NotDetected) 04/19/22 20:01 Ur Amphetamines Screen Detected (NotDetected) H 04/19/22 20:01 U Methamphetamines Scrn Not Detected (NotDetected) 04/19/22 20:01 U Benzodiazepines Scrn Not Detected (NotDetected) 04/19/22 20:01 Urine Cocaine Screen Detected (NotDetected) H 04/19/22 20:01 U Marijuana (THC) Screen Not Detected (NotDetected) 04/19/22 20:01 Coronavirus (PCR) Not Detected (Not Detectd) 04/19/22 22:23 Vital Signs Temp 97.9 F 04/23/22 04:00 Pulse 64 04/23/22 04:00 Resp 17 04/23/22 04:00 BP 142/69 04/23/22 04:00 Pulse Ox 98 04/22/22 20:37 FiO2 Patient Condition at Discharge: Stable Plan - Discharge Summary Discharge Rx Participant: No New Discharge Prescriptions: New Naltrexone HCl [Revia] 50 mg PO DAILY 30 Days tab Pantoprazole [Protonix] 40 mg PO AC-BRKFST 30 Days tab QUEtiapine [SEROquel] 75 mg PO HS 30 Days tab Montelukast [Singulair] 10 mg PO HS 30 Days tab Sertraline [Zoloft] 150 mg PO DAILY 30 Days tab Discharge Medication List Montelukast [Singulair] 10 mg PO HS 30 Days tab 04/24/22 [Rx] Naltrexone HCl [Revia] 50 mg PO DAILY 30 Days tab 04/24/22 [Rx] Pantoprazole [Protonix] 40 mg PO AC-BRKFST 30 Days tab 04/24/22 [Rx] QUEtiapine [SEROquel] 75 mg PO HS 30 Days tab 04/24/22 [Rx] Sertraline [Zoloft] 150 mg PO DAILY 30 Days tab 04/24/22 [Rx] Follow up Appointment(s)/Referral(s): [facility] [Outside] - 04/29/22 12:00 pm Val Concepcion MD [Primary Care Provider] - 1-2 days Patient Instructions/Handouts: Depression (DC), Abuse of Alcohol (DC) Activity/Diet/Wound Care/Special Instructions: Avoid the use of street drugs and alcohol. Take all prescriptions as prescribed. When you are in need of refills on your medications, please contact your medical provider and/or outpatient psychiatrist to have this done. Please go to scheduled outpatient appointment for aftercare treatment. If symptoms return or become worse, call the crisis line at and/or go to the nearest emergency room for evaluation. Discharge Disposition: HOME SELF-CARE
== END 2022-04-24 11:47 | disposition home or self-care (01) | DRG 885 ==
LOC: EC 17:11 → 3MHU 23:59
PROVIDERS: ADMIT Psychiatry & Neurology Psychiatry; ATTEND Psychiatry & Neurology Psychiatry
DX: F33.2 Major depressive disorder, recurrent severe without psychotic features (principal); F14.20 Cocaine dependence, uncomplicated; R45.851 Suicidal ideations; J44.9 Chronic obstructive pulmonary disease, unspecified; Z20.822 Contact with and (suspected) exposure to COVID-19; F10.20 Alcohol dependence, uncomplicated; F12.10 Cannabis abuse, uncomplicated; F41.9 Anxiety disorder, unspecified; K21.9 Gastro-esophageal reflux disease without esophagitis; Z79.899 Other long term (current) drug therapy; Z87.81 Personal history of (healed) traumatic fracture; Z71.51 Drug abuse counseling and surveillance of drug abuser; Z71.41 Alcohol abuse counseling and surveillance of alcoholic
CPT/HCPCS: 36415; 80053; 80061; 80306; 81003; 82075; 83036; 84443; 85025; 85027; 87635; 99285

== ENCOUNTER → 2023-10-13 | Outpatient (CLI) | payer BC, OTHER ==
--- NOTE | 2023-10-16 13:52 | MR ---
EXAMINATION TYPE: MR yasmany/alexus wo/w con DATE OF EXAM: 10/13/2023 6:51 PM CLINICAL INDICATION:Male, 52 years old with history of M19.90 UNSPECIFIED OSTEOARTHRITIS, UNSPECIFIED SIT, Mid and low back pain that radiates down left leg. COMPARISON: CT 01/30/2019 TECHNIQUE: Multi planar, multi sequence imaging was performed utilizing: T1-weighted, T2-weighted, a nd turbo inversion recovery imaging of the thoracic and lumbar spine. IV Contrast: 12 cc Gadavist. None. FINDINGS: Alignment: The thoracic and lumbar vertebral bodies have preserved heights. There is straightening of the lumbar Cord: The conus medullaris and the distal spinal cord appear unremarkable with regards to their signa l intensity and morphology. Bones/Discs: Scattered degeneration changes throughout the spine with osteophyte formation disc space narrowing facet joint arthropathy. Findings worse in the lumbar spine. THORACIC: No evidence significant spinal canal stenosis. Spinal cord is within normal limits. Scatter ed areas of mild neural foraminal stenosis secondary to facet joint arthropathy worse at T9-T10 and T 10-T11 on the left with mild to moderate. LUMBAR: T12-L1: No evidence of significant spinal canal stenosis or neural foraminal stenosis. L1-L2: No evidence of significant spinal canal stenosis or neural foraminal stenosis. L2-L3: Disc bulge and facet joint arthropathy result in mild spinal canal and moderate to severe bila teral neural foraminal stenosis. L3-L4: Disc bulge and facet joint arthropathy result in mild spinal canal and severe bilateral neural foraminal stenosis. L4-L5: Disc bulge and facet joint arthropathy result in mild spinal canal and severe bilateral neural foraminal stenosis. L5-S1: The disc is rounded posterior morphology without significant spinal canal stenosis. Facet join t arthropathy with severe bilateral neural foraminal stenosis. Other findings: None. IMPRESSION: 1. No definitive evidence of disc herniation or significant spinal canal stenosis. 2. Moderate to severe degeneration changes throughout the lumbar spine with multilevel high-grade ne ural foraminal stenosis extending from L3-L4 and L5-S1. Disc degeneration with associated osteoarthri tic changes. 3. Mild to moderate degeneration changes throughout the thoracic spine with neural foraminal stenosis worse on the left at T9-T10 and T10-T11 with mild to moderate.
== END | disposition home or self-care (01) ==
LOC: RADMRIMAIN 17:17
PROVIDERS: ATTEND Family Medicine
DX: M99.73 Connective tissue and disc stenosis of intervertebral foramina of lumbar region (principal); M99.72 Connective tissue and disc stenosis of intervertebral foramina of thoracic region; M51.16 Intervertebral disc disorders with radiculopathy, lumbar region; M47.25 Other spondylosis with radiculopathy, thoracolumbar region; M19.90 Unspecified osteoarthritis, unspecified site; M25.561 Pain in right knee; M25.562 Pain in left knee
CPT/HCPCS: 72157; 72158; A9585

== ENCOUNTER → 2023-10-14 | Outpatient (CLI) | payer BC, OTHER ==
--- NOTE | 2023-10-15 01:20 | MR ---
EXAMINATION TYPE: MR knee LT wo con DATE OF EXAM: 10/14/2023 COMPARISON: NONE HISTORY: Left knee pain, osteoarthritis. Pain and swelling for 5 years. TECHNIQUE: Multiplanar, multisequence images of the knee is performed without IV contrast. FINDINGS: MEDIAL MENISCUS: Truncated appearance to the posterior horn with abnormal signal likely extending to articular surface. LATERAL MENISCUS: Oblique signal lateral meniscus through the central body extends to inferior articu lar surface. CRUCIATE LIGAMENTS: The anterior and posterior cruciate ligaments are intact and unremarkable. COLLATERAL LIGAMENTS: The medial collateral ligament and lateral collateral ligament complex are inta ct. Some fluid surrounds the medial collateral ligament. EXTENSOR MECHANISM: Visualized quadriceps and patellar tendons are intact. EFFUSION: Moderate to large size suprapatellar joint effusion. POPLITEAL CYST: No popliteal/jesus cyst. TRICOMPARTMENT SPACES: Mild to moderate tricompartment joint space loss and spurring. CARTILAGE: Cartilaginous loss medial tibiofemoral compartment. BONE MARROW SIGNAL: No focal abnormal marrow signal is appreciated. OTHER: No additional significant abnormality is appreciated. IMPRESSION: 1. Full-thickness tear posterior horn medial meniscus. 2. Full-thickness tear central body lateral meniscus. 3. Mild to moderate tricompartment degenerative changes as detailed above. 4. Moderate to large-size suprapatellar joint effusion. Size. Mild MCL sprain injury.
--- NOTE | 2023-10-15 01:41 | MR ---
EXAMINATION TYPE: MR knee RT wo con DATE OF EXAM: 10/14/2023 COMPARISON: Prior MRI right knee July 25, 2016 HISTORY: Right knee pain, osteoarthritis TECHNIQUE: Multiplanar, multisequence images of the knee is performed without IV contrast. FINDINGS: MEDIAL MENISCUS: Horizontal oblique signal posterior horn extends into central body similar to prior. LATERAL MENISCUS: Slightly truncated appearance anterior horn with increased signal. CRUCIATE LIGAMENTS: The anterior and posterior cruciate ligaments remain intact. Thickening and incre ased signal along the anterior cruciate ligament redemonstrated. COLLATERAL LIGAMENTS: The medial collateral ligament and lateral collateral ligament complex are inta ct. More prominent fluid superficial to the medial collateral ligament. EXTENSOR MECHANISM: Visualized quadriceps and patellar tendons are intact. EFFUSION: Large suprapatellar joint effusion redemonstrated. POPLITEAL CYST: Small to tiny popliteal/jesus cyst redemonstrated. TRICOMPARTMENT SPACES: Moderate spurring medial and lateral tibiofemoral compartments. Mild to modera te tricompartment narrowing. CARTILAGE: Cartilaginous loss medial tibial femoral compartment again seen. BONE MARROW SIGNAL: No focal abnormal marrow signal is appreciated. OTHER: No additional significant abnormality is appreciated. IMPRESSION: 1. Full-thickness tear posterior horn into central body of the medial meniscus redemonstrated. 2. Full-thickness tear anterior horn of lateral meniscus redemonstrated. 3. Moderate to large size suprapatellar joint effusion remains present. 4. Small to tiny popliteal cyst redemonstrated. 5. Myxoid degeneration ACL again seen. 6. Tricompartmental degenerative changes most prominent medial tibial femoral compartment show interv al degenerative progression from 2016 MRI.
== END | disposition home or self-care (01) ==
LOC: RADMRIMAIN 17:22
PROVIDERS: ATTEND Family Medicine
DX: S83.242A Other tear of medial meniscus, current injury, left knee, initial encounter (principal); M17.12 Unilateral primary osteoarthritis, left knee; M25.462 Effusion, left knee; S83.241A Other tear of medial meniscus, current injury, right knee, initial encounter; M25.469 Effusion, unspecified knee; M17.11 Unilateral primary osteoarthritis, right knee; M19.90 Unspecified osteoarthritis, unspecified site

== ENCOUNTER 2023-12-02 11:28 | Inpatient (IN) | payer BC, OTHER ==
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
[2023-12-02] MEDS: SODIUM CHLORIDE 0.9% 1,000 ML IV STA (11:45)
--- NOTE | 2023-12-02 12:00 | XR ---
EXAMINATION TYPE: XR chest 2V DATE OF EXAM: 12/02/2023 11:56 AM CLINICAL INDICATION:Male, 52 years old with history of dyspnea; H COMPARISON: Chest radiographs from 09/08/2020 TECHNIQUE: XR chest 2V Frontal and lateral views of the chest. FINDINGS: Lungs/Pleura: Multifocal airspace opacities. No evidence of pneumothorax or pleural effusion. Pulmonary vascularity: Unremarkable. Heart/mediastinum: Cardiomediastinal silhouette is unremarkable. Musculoskeletal: No acute osseous pathology. IMPRESSION: Multifocal airspace opacities concerning for pneumonia.
[2023-12-02 12:01] LABS: VBG PH 7.47 (7.31-7.41)
[2023-12-02 12:16] LABS: African American GFR (CKD) >90 (>60 ml/min/1.73 sqM); Anion Gap 5 mmol/L; Blood Urea Nitrogen 12 mg/dL (9-20); Calcium 8.2 mg/dL (8.4-10.2); Carbon Dioxide 22 mmol/L (22-30); Chloride 108 mmol/L (98-107); Glucose 135 mg/dL (74-99); Non-African American GFR(CKD) >90 (>60 ml/min/1.73 sqM); Potassium 4.2 mmol/L (3.5-5.1); Sodium 135 mmol/L (137-145)
[2023-12-02 12:17] LABS: HCT 43.2 % (39.0-53.0); HGB 14.3 gm/dL (13.0-17.5); MCH 31.3 pg (25.0-35.0); MCHC 33.2 g/dL (31.0-37.0); MCV 94.2 fL (80.0-100.0); Mean Platelet Volume 8.8; Platelet Count 188 k/uL (150-450); RBC 4.58 m/uL (4.30-5.90); RDW 12.8 % (11.5-15.5); WBC 12.2 k/uL (3.8-10.6)
[2023-12-02 12:25] LABS: NT-Pro-B-Type Natriuretic Pept 595 pg/mL
[2023-12-02] MEDS: IPRATROPIUM-ALBUTEROL 3 ML NEB INHALATION STA (12:38)
[2023-12-02] MEDS ORDERED: NALOXONE 0.4 MG/ML 1 ML VIAL IV PRN (12:50)
[2023-12-02] MEDS ORDERED: ACETAMINOPHEN TAB 325 MG TAB PO PRN (12:50)
[2023-12-02 12:52] LABS: Band Neutrophils % 4 %; Eosinophils # (M) 0.12 k/uL (0-0.7); Lymphocytes # (M) 0.73 k/uL (1.0-4.8); Metamyelocytes # (M) 0.61 k/uL (0); Metamyelocytes % 5 %; Monocytes # (M) 0.73 k/uL (0-1.0); Myelocytes # (M) 0.12 k/uL (0); Myelocytes % 1 %; Neutrophils % (M) 79 %; Nucleated Red Blood Cells 0 /100 WBC (0-0); Total Cells Counted 200
[2023-12-02 12:53] LABS: RBC Morphology Normal
[2023-12-02] MEDS: AZITHROMYCIN 500 MG in SODIUM CHLORIDE 0.9% 250 ML IVPB STA (13:01)
[2023-12-02] MEDS: SODIUM CHLORIDE 0.9% 1,000 ML IV SCH (13:03)
[2023-12-02] MEDS: cefTRIAXone IN SWFI 1,000 MG/10 ML SYRINGE IVP STA (14:27)
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
[2023-12-02] MEDS: methylPREDNISolone SOD SUCCI 125 MG/2 ML VIAL IV SCH (17:14)
[2023-12-02] MEDS: IPRATROPIUM-ALBUTEROL 3 ML NEB INHALATION SCH (18:22)
[2023-12-02] MEDS ORDERED: GABAPENTIN 100 MG CAP PO PRN (19:55)
[2023-12-02] MEDS ORDERED: HYDROcodone/APAP 7.5-325MG 1 EACH TAB PO PRN (19:55)
[2023-12-02] MEDS ORDERED: MELOXICAM 7.5 MG TAB PO PRN (19:55)
[2023-12-02] MEDS ORDERED: IPRATROPIUM-ALBUTEROL 3 ML NEB INHALATION SCH (20:00)
--- NOTE | 2023-12-03 05:57 | HP ---
HISTORY AND PHYSICAL CHIEF COMPLAINT: Fever, cough, chills, and pneumonitis. HISTORY OF PRESENT ILLNESS: This is the first known admission for this 52-year-old gentleman. He became ill about 24 hours before coming to the emergency room. He notes fever, chills, cough, and shortness of breath. He came to the hospital where he was felt to have a bilateral patchy bronchial pneumonia on top of COPD. REVIEW OF SYSTEMS: He denies any confusion, headaches, chest pain, hemoptysis, orthopnea, PND, abdominal pain, nausea, vomiting, diarrhea, melena, dysuria, frequency, urgency, or diabetes. He does have COPD. Has had shortness of breath, fever and chills, but no other symptoms. Past medical history, family history, and personal and social histories reveal that he is on albuterol inhaler, meloxicam 7.5 twice a day, vitamin D, Spiriva, Vicodin, gabapentin 100 mg 3 times a day. He is not allergic to any medication. He does continue to smoke. PHYSICAL EXAMINATION: VITAL SIGNS: Blood pressure is 123/86 with a pulse of 91, respirations of 35, and temperature 99. GENERAL: Appeared to be slightly short of breath. HEAD, EARS, EYES, NOSE, MOUTH, AND THROAT: Normal. CHEST: Demonstrated bilateral rales and rhonchi with productive cough and some inspiratory and expiratory wheezing. CARDIAC: Normal. ABDOMEN: Soft, nontender. EXTREMITIES: Normal. NEUROLOGIC: He is intact. ASSESSMENT: He is admitted to the hospital with the diagnoses of: 1. Bilateral bronchial pneumonia. 2. Chronic obstructive pulmonary disease. PLAN: 1. Bedrest. 2. IV fluids. 3. IV antibiotics. 4. IV inhaled steroids. MMODL / IJN: [id number] /
[2023-12-03] MEDS: PANTOPRAZOLE 40 MG TABLET PO SCH (06:00)
[2023-12-03] MEDS: ENOXAPARIN 40 MG/0.4 ML SYRINGE SQ SCH (08:16)
--- NOTE | 2023-12-03 11:45 | P.PN ---
Subjective This is a pleasant 52 years old male with past medical history of multiple medical problems as below Patient presents originally because of shortness of breath and dyspnea He has also some cough and clear fluffy phlegm He is complaining also from rib cage pain, mild increased by respiration and coughing related to most likely to pneumonia. Looks mild for now. He denies precipitated or relieving factors other than the above. He denies smoking alcohol or illicit drugs but he admits to vaping nicotine and he was counseled to quit but he declines nicotine patch although he agrees he should quit He is afebrile and hemodynamically stable. Labs reviewed including unremarkable BMP and CBC except for mild leukocytosis of 12,000 JVP is not elevated Influenza A and type B, RSV, SARS (coronavirus) are undetected This morning better, his breathing quietly, he denies significant coughing, history of self Chest pain with coughing Get up and go test is normal No other new complaints Hemodynamically stable currently on room air Labs showing mild leukocytosis around 12,000 Objective - Vital Signs Vital signs: Vital Signs Temp 98.5 F 12/03/23 07:31 Pulse 98 12/03/23 08:55 Resp 18 12/03/23 07:31 BP 116/74 12/03/23 07:31 Pulse Ox 94 L 12/03/23 07:31 FiO2 Intake & Output 12/02/23 12/03/23 12/03/23 18:59 06:59 18:59 Weight 122.47 kg 122.47 kg Other: Voiding Method Toilet # Voids 2 - Exam GENERAL: The patient is alert and oriented x3, not in any acute distress. Well developed, well nourished. HEENT: Pupils are round and equally reacting to light. EOMI. No scleral icterus. No conjunctival pallor. Normocephalic, atraumatic. No pharyngeal erythema. No thyromegaly. CARDIOVASCULAR: S1 and S2 present. No murmurs, rubs, or gallops. PULMONARY: Chest is clear to auscultation, no wheezing , no crackles. ABDOMEN: Soft, nontender, nondistended, normoactive bowel sounds. No palpable organomegaly. MUSCULOSKELETAL: No joint swelling or deformity. EXTREMITIES: No cyanosis, clubbing, or pedal edema. NEUROLOGICAL: Gross neurological examination did not reveal any focal deficits. SKIN: No rashes. no petechiae. - Labs CBC & Chem 7: 12/02/23 11:43 12/02/23 11:43 Labs: Abnormal Lab Results - Last 24 Hours (Table) 12/02/23 12/02/23 12/02/23 Range/Units 11:43 11:43 11:43 WBC 12.2 H (3.8-10.6) k/uL Neutrophils # (Manual) 10.10 H (1.3-7.7) k/uL Lymphocytes # (Manual) 0.73 L (1.0-4.8) k/uL Metamyelocytes # (Man) 0.61 H (0) k/uL Myelocytes # (Manual) 0.12 H (0) k/uL VBG pH 7.47 H (7.31-7.41) VBG pCO2 31 L (37-51) mmHg VBG HCO3 22 L (24-28) mmol/L Sodium 135 L (137-145) mmol/L Chloride 108 H (98-107) mmol/L Glucose 135 H (74-99) mg/dL Calcium 8.2 L (8.4-10.2) mg/dL Procalcitonin (0.02-0.09) ng/mL 12/02/23 Range/Units 11:43 WBC (3.8-10.6) k/uL Neutrophils # (Manual) (1.3-7.7) k/uL Lymphocytes # (Manual) (1.0-4.8) k/uL Metamyelocytes # (Man) (0) k/uL Myelocytes # (Manual) (0) k/uL VBG pH (7.31-7.41) VBG pCO2 (37-51) mmHg VBG HCO3 (24-28) mmol/L Sodium (137-145) mmol/L Chloride (98-107) mmol/L Glucose (74-99) mg/dL Calcium (8.4-10.2) mg/dL Procalcitonin 3.17 H (0.02-0.09) ng/mL Assessment and Plan Assessment: bilateral multifocal pneumonia COPD exacerbation Acute respiratory alkalosis Nicotine dependence continue with ceftriaxone and Zithromax Continue with IV Solu-Medrol Monitor sugars GERD History of osteoarthritis Anxiety and depression, not an active issue Continue with antibiotics ceftriaxone and Zithromax Follow-up culture results Solu-Medrol 60 mg every 6 hours Monitor vitals Pulmonary team consult Continue with antibiotic, currently on ceftriaxone and Zithromax Labs and medication were reviewed.. Continue same treatment. Continue with symptomatic treatment. Resume home medication. Monitor labs and vitals. DVT and GI prophylaxis. Further recommendations as per clinical course of the patient DVT prophylaxis: Subcutaneous heparin GI Prophylaxis: Ppi
[2023-12-03] MEDS: AZITHROMYCIN 500 MG in SODIUM CHLORIDE 0.9% 250 ML IVPB SCH (13:24)
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
[2023-12-04] MEDS: IPRATROPIUM-ALBUTEROL 3 ML NEB INHALATION SCH (01:03)
--- NOTE | 2023-12-04 07:49 | XR ---
EXAMINATION TYPE: XR chest 2V DATE OF EXAM: 12/04/2023 COMPARISON: 12/02/2023 TECHNIQUE: PA and lateral views submitted. HISTORY: Pneumonia FINDINGS: Underlying COPD. There is improvement in the left lower lobe and left upper lobe areas of consolidati on. There is a persistent nodular appearing density in the right lower lobe. Recommend CT of the ches t.. Heart size normal and no overt failure. Osseous structures demonstrate hypertrophic and degenera tive changes of the spine. IMPRESSION: 1. Improving bilateral areas of infiltrate or atelectasis. However, is a nodular appearing density at the right lung base for which CT scan of the chest is recommended.
[2023-12-04] MEDS ORDERED: IPRATROPIUM-ALBUTEROL 3 ML NEB INHALATION PRN (13:34)
[2023-12-04 15:19] VITALS: BP 138/76; PULSE 89; RESP 17; TEMP 98.7
[2023-12-04] MEDS ORDERED: IPRATROPIUM-ALBUTEROL 3 ML NEB INHALATION SCH (16:00)
[2023-12-04] MEDS ORDERED: CEPHALEXIN 500 MG CAP PO SCH (18:00)
[2023-12-05] MEDS ORDERED: methylPREDNISolone 4 MG TAB TAPER PO SCH (09:00)
== END 2023-12-04 15:32 | disposition left against medical advice (07) | DRG 194 ==
LOC: EC 11:28 → 4SSUR 12:53
PROVIDERS: ADMIT Family Medicine; ATTEND Family Medicine
DX: J15.9 Unspecified bacterial pneumonia (principal); E87.3 Alkalosis; J44.0 Chronic obstructive pulmonary disease with (acute) lower respiratory infection; J44.1 Chronic obstructive pulmonary disease with (acute) exacerbation; Z53.29 Procedure and treatment not carried out because of patient's decision for other reasons; K21.9 Gastro-esophageal reflux disease without esophagitis; M19.90 Unspecified osteoarthritis, unspecified site; F41.9 Anxiety disorder, unspecified; Z11.52 Encounter for screening for COVID-19; F32.A Depression, unspecified; M16.0 Bilateral primary osteoarthritis of hip; F17.290 Nicotine dependence, other tobacco product, uncomplicated; Z71.6 Tobacco abuse counseling; Z79.1 Long term (current) use of non-steroidal anti-inflammatories (NSAID); Z79.899 Other long term (current) drug therapy
CPT/HCPCS: 36415; 71046; 80048; 82803; 83880; 84145; 85025; 87040; 87070; 87205; 87449; 87636; 93005; 94640; 96361; 96365; 96375; 99285